=== PATIENT | female | born 1935 | race African-American/Black ===

== ENCOUNTER 2018-04-08 07:30 | Emergency (ER) | payer MEDICARE, MEDICAID ==
[~2018-04-08] VITALS: Ht 157.5 cm; Wt 76.0 kg
[~2018-04-08 07:30] MED LIST: ATEN50TA PO; LEVO50TA8 PO; LOSA50TA20 PO; METF-414 PO; MONT10TA24 PO; OXYB5TAB11 PO; SIMV20TA6 PO
[2018-04-08] MEDS ORDERED: ALBUTEROL (0.083%) 2.5MG/3ML NEB HHN STA (08:21)
[2018-04-08] MEDS ORDERED: IPRATROPIUM BROMIDE (0.02%) 0.5MG/2.5ML NEB HHN STA (08:21)
[2018-04-08 09:00] LABS: BASOPHILS % 0.6 % (0.0-2.0); EOSINOPHILS % 0.6 % (0.0-5.0); HEMATOCRIT. 32.1 % (36.0-48.0); HEMOGLOBIN. 10.9 g/dL (12.0-16.0); LYMPHOCYTES % 11.8 % (20.0-50.0); MEAN CORPUSCULAR HEMOGLOBIN 29.5 pg (28.0-32.0); MEAN CORPUSCULAR VOLUME 86.8 fL (81.0-99.0); MONOCYTES % 8.9 % (2.0-8.0); NEUTROPHILS % 78.1 % (40.0-76.0); RED CELL DISTRIBUTION WIDTH 16.2 % (11.6-14.6)
[2018-04-08 09:41] LABS: CHLORIDE 101 mEq/L (98-107)
[2018-04-08] MEDS ORDERED: ACETAMINOPHEN 325MG TABLET PO ONE (10:15)
[2018-04-08] MEDS ORDERED: GABAPENTIN 100MG CAPSULE PO ONE (10:15)
[2018-04-08 12:00] VITALS: BP 152/72
[2018-07-24] MEDS ORDERED: P50 MT (17:36)
== END 2018-04-08 12:15 | disposition home or self-care (01) ==
LOC: ER 10:58
DX: E11.21 Type 2 diabetes mellitus with diabetic nephropathy (principal); R20.2 Paresthesia of skin; I10 Essential (primary) hypertension; J44.9 Chronic obstructive pulmonary disease, unspecified; Z79.51 Long term (current) use of inhaled steroids; Z79.84 Long term (current) use of oral hypoglycemic drugs; Z79.899 Other long term (current) drug therapy; Z88.2 Allergy status to sulfonamides
CPT/HCPCS: 36415; 71045; 93005; 94644; 99285; J7611

== ENCOUNTER 2018-07-22 06:09 | Inpatient (IN) | payer MEDICARE, MEDICAID ==
[~2018-07-22] VITALS: Ht 157.5 cm; Wt 83.5 kg
[2018-07-22] MEDS ORDERED: IPRATROPIUM BROMIDE (0.02%) 0.5MG/2.5ML NEB HHN STA (07:07)
[2018-07-22] MEDS ORDERED: ALBUTEROL (0.083%) 2.5MG/3ML NEB HHN STA (07:07)
[2018-07-22] MEDS ORDERED: ASPIRIN 81MG TABLET PO ONE (07:15)
[2018-07-22 07:34] LABS: BASOPHILS % 0.8 % (0.0-2.0); EOSINOPHILS % 1.2 % (0.0-5.0); HEMATOCRIT. 30.3 % (36.0-48.0); HEMOGLOBIN. 10.5 g/dL (12.0-16.0); LYMPHOCYTES % 12.2 % (20.0-50.0); MEAN CORPUSCULAR HEMOGLOBIN 30.3 pg (28.0-32.0); MEAN CORPUSCULAR VOLUME 87.4 fL (81.0-99.0); MEAN PLATELET VOLUME 7.3 fl (7.4-10.4); MONOCYTES % 9.5 % (2.0-8.0); NEUTROPHILS % 76.3 % (40.0-76.0); PLATELET 191 x1000/uL (130-400); RED BLOOD CELL COUNT 3.47 mill/uL (4.2-5.4); RED CELL DISTRIBUTION WIDTH 15.8 % (11.6-14.6)
[2018-07-22 07:40] LABS: CHLORIDE 103 mEq/L (98-107)
[2018-07-22] MEDS ORDERED: ALBUTEROL (0.5%) 2.5MG/0.5ML NEB HHN ONE (08:00)
[2018-07-22] MEDS ORDERED: METHYLPREDNISOLONE SOD SUCC 125 MG/2 ML VIAL IV ONE (08:00)
[2018-07-22] MEDS ORDERED: HYDROCODONE/ACETAMINOPHEN 5/325MG TABLET PO PRN (09:30)
[2018-07-22] MEDS ORDERED: ACETAMINOPHEN 650MG SUPP PR PRN (09:30)
[2018-07-22] MEDS ORDERED: DEXTROSE 50% WATER 50ML SYRINGE IV PRN (09:30)
[2018-07-22] MEDS: IPRATROPIUM/ALBUTEROL 0.5-3(2.5)MG/3ML NEB INH SCH (09:30)
[2018-07-22] MEDS: METHYLPREDNISOLONE SOD SUCC 125 MG/2 ML VIAL IV SCH ×4 (09:30→20:54)
[2018-07-22] MEDS ORDERED: IPRATROPIUM/ALBUTEROL 0.5-3(2.5)MG/3ML NEB INH PRN (09:30)
[2018-07-22] MEDS ORDERED: NA PHOS,M-B/NA PHOS,DI-BA ENEMA 118ML PR PRN (09:30)
[2018-07-22] MEDS: ENOXAPARIN 40MG/0.4ML SYR SUBCUT SCH ×2 (09:30→12:23)
[2018-07-22] MEDS ORDERED: MAGNESIUM/ALUMINUM HYDROXIDE/SIMETHICONE 30ML UDC PO PRN (09:30)
[2018-07-22] MEDS ORDERED: ACETAMINOPHEN 650MG/20.3ML UDC GT PRN (09:30)
[2018-07-22] MEDS ORDERED: DOCUSATE SODIUM 100MG CAPSULE PO PRN (09:30)
[2018-07-22] MEDS ORDERED: ONDANSETRON HCL 4MG/2ML INJ IV PRN (09:30)
[2018-07-22] MEDS ORDERED: DIPHENHYDRAMINE 50MG/ML VIAL IV PRN (09:30)
[2018-07-22] MEDS ORDERED: GUAIFENESIN 200MG/10ML SUGAR FREE UDC PO PRN (09:30)
[2018-07-22] MEDS: BLOOD SUGAR DIAGNOSTIC STRIP TEST SCH ×3 (12:21→21:09)
[2018-07-22] MEDS: INSULIN LISPRO 100 UNITS/ML SUBCUT SCH ×3 (12:28→21:00)
[2018-07-22] MEDS: SODIUM CHLORIDE 0.9% INJ 3ML FLUSH IVF SCH ×2 (14:00→23:00)
[2018-07-22 16:16] VITALS: BP 140/66
[2018-07-22 20:00] VITALS: BP 144/66
[2018-07-22] MEDS ORDERED: AMLO5TAB88 MT (20:38)
[2018-07-22] MEDS ORDERED: POTA10CA42 PO (20:38)
[2018-07-22] MEDS ORDERED: ASPI-1159 MT (20:38)
[2018-07-22] MEDS ORDERED: GABA-529 PO (20:38)
[2018-07-22] MEDS ORDERED: CHLO25TA2 PO (20:38)
[2018-07-22] MEDS ORDERED: DOXA4TAB3 PO (20:38)
[2018-07-22] MEDS ORDERED: HYDR-2510 MT (20:38)
[2018-07-22] MEDS ORDERED: PERP4TAB11 PO (20:38)
[2018-07-22] MEDS ORDERED: AMLO-375 PO (20:38)
[2018-07-22] MEDS ORDERED: PRED2.5T4 PO (20:38)
[2018-07-22] MEDS ORDERED: MELO-104 PO (20:38)
[2018-07-22] MEDS ORDERED: HYDR25TA MT (20:38)
[2018-07-22] MEDS: ACETAMINOPHEN 325MG TABLET PO PRN (20:55)
[2018-07-23] VITALS: BP 160/79
[2018-07-23] MEDS: METHYLPREDNISOLONE SOD SUCC 125 MG/2 ML VIAL IV SCH ×4 (02:39→21:01)
[2018-07-23 04:00] VITALS: BP_SYST 116; BP_SYST 166; BP_DIAS 76; BP_DIAS 79
[2018-07-23] MEDS: IPRATROPIUM/ALBUTEROL 0.5-3(2.5)MG/3ML NEB INH SCH ×4 (04:49→20:39)
[2018-07-23] MEDS: CLONIDINE 0.1MG TABLET PO PRN (05:20)
[2018-07-23] MEDS: SODIUM CHLORIDE 0.9% INJ 3ML FLUSH IVF SCH ×2 (05:21→17:32)
[2018-07-23] MEDS: BLOOD SUGAR DIAGNOSTIC STRIP TEST SCH ×4 (06:41→21:04)
[2018-07-23 07:34] LABS: HEMATOCRIT. 30.9 % (36.0-48.0); HEMOGLOBIN. 10.6 g/dL (12.0-16.0); MEAN CORPUSCULAR HEMOGLOBIN 30.1 pg (28.0-32.0); MEAN CORPUSCULAR VOLUME 87.4 fL (81.0-99.0); MEAN PLATELET VOLUME 8.1 fl (7.4-10.4); PLATELET 199 x1000/uL (130-400); RED BLOOD CELL COUNT 3.53 mill/uL (4.2-5.4); RED CELL DISTRIBUTION WIDTH 15.8 % (11.6-14.6)
[2018-07-23 08:00] VITALS: BP 164/71
[2018-07-23 08:21] LABS: CHLORIDE 98 mEq/L (98-107)
[2018-07-23 08:42] LABS: LDL CHOLESTEROL 64 mg/dL (5-100)
[2018-07-23 08:44] LABS: HDL CHOLESTEROL 85 mg/dL (40-59)
[2018-07-23] MEDS: INSULIN LISPRO 100 UNITS/ML SUBCUT SCH ×4 (09:03→21:04)
[2018-07-23 10:05] LABS: BG BASE EXCESS -4.6 mmol/L (-2.0-2.0); BG CARBOXYHEMOGLOBIN 0.3 % (0.5-1.5); BG DEOXYHEMOGLOBIN 3.5 % (0.0-5.0); BG FRACTION INSPIRED OXYGEN 21; BG HCO3 ACT 18.5 mmol/L (22.0-26.0); BG METHEMOGLOBIN 0.1 % (0.0-1.5); BG OXYGEN SATURATION 96.5 % (92.0-98.5); BG OXYHEMOGLOBIN 96.1 % (94.0-97.0); BG PCO2 28.1 mmHg (35.0-45.0); BG PH 7.436 (7.350-7.450); BG PO2 94.4 mmHg (75.0-100.0); BG SAMPLE SITE RIGHT RADIAL; BG TOTAL HEMOGLOBIN 11.1 g/dL (12.0-18.0); BG VENT MODE ROOM AIR
[2018-07-23 12:00] VITALS: BP 148/86
[2018-07-23] MEDS ORDERED: MEDICATION NOT ON FORMULARY EA (Atenolol 50 MG) PO SCH (12:45)
[2018-07-23] MEDS ORDERED: OXYBUTYNIN CHLORIDE PO SCH (12:45)
[2018-07-23] MEDS ORDERED: DOXAZOSIN MESYLATE 4 MG PO SCH (12:45)
[2018-07-23] MEDS ORDERED: MEDICATION NOT ON FORMULARY EA (Amlodipine Besylate 1 TAB) MT SCH (12:45)
[2018-07-23] MEDS ORDERED: MEDICATION NOT ON FORMULARY EA (Losartan Potassium 1 TAB) PO SCH (12:45)
[2018-07-23] MEDS ORDERED: MEDICATION NOT ON FORMULARY EA (Potassium Chloride 10 MEQ) PO SCH (12:45)
[2018-07-23] MEDS ORDERED: MEDICATION NOT ON FORMULARY EA (Metformin Hcl 1 TAB) PO SCH (12:45)
[2018-07-23] MEDS ORDERED: MEDICATION NOT ON FORMULARY EA (Aspirin (Aspirin Low Dose) 1 TAB) MT SCH (12:45)
[2018-07-23 13:11] LABS: PLATELET ESTIMATE NORMAL
[2018-07-23] MEDS: POTASSIUM CHLORIDE 10MEQ TABLET SR PO SCH (13:32)
[2018-07-23] MEDS: HYDROCHLOROTHIAZIDE 25MG TABLET PO SCH (13:32)
[2018-07-23] MEDS: ASPIRIN 81MG TABLET PO SCH (13:32)
[2018-07-23] MEDS: AMLODIPINE 5MG TABLET PO SCH (13:32)
[2018-07-23] MEDS: DOXAZOSIN MESYLATE 4MG TABLET PO SCH ×2 (13:32→17:31)
[2018-07-23 16:00] VITALS: BP 165/74
[2018-07-23] MEDS ORDERED: MONTELUKAST SODIUM 10MG TABLET PO SCH (17:00)
[2018-07-23] MEDS: MELOXICAM 7.5MG TABLET PO SCH (17:31)
[2018-07-23] MEDS: METFORMIN HCL 500MG TABLET PO SCH (17:31)
[2018-07-23] MEDS: OXYBUTYNIN CHLORIDE 5MG TABLET PO SCH (17:34)
[2018-07-23] MEDS ORDERED: MEDICATION NOT ON FORMULARY EA (Gabapentin 100 MG) PO SCH (18:00)
[2018-07-23] MEDS ORDERED: GABAPENTIN 100MG CAPSULE PO SCH (18:00)
[2018-07-23 20:00] VITALS: BP 155/81
[2018-07-23] MEDS ORDERED: MEDICATION NOT ON FORMULARY EA (Simvastatin 1 TAB) PO SCH (21:00)
[2018-07-23] MEDS ORDERED: ATORVASTATIN CALCIUM 10MG TABLET PO SCH (21:00)
[2018-07-23] MEDS: ACETAMINOPHEN 325MG TABLET PO PRN (21:02)
[2018-07-23] MEDS: LOSARTAN POTASSIUM 50 MG TABLET PO SCH (21:03)
[2018-07-23] MEDS: ATENOLOL 50 MG TABLET PO SCH (21:03)
[2018-07-24] VITALS: BP 140/78
[2018-07-24] MEDS: METHYLPREDNISOLONE SOD SUCC 125 MG/2 ML VIAL IV SCH ×2 (01:03→08:02)
[2018-07-24] MEDS: SODIUM CHLORIDE 0.9% INJ 3ML FLUSH IVF SCH ×3 (01:04→12:13)
[2018-07-24] MEDS: IPRATROPIUM/ALBUTEROL 0.5-3(2.5)MG/3ML NEB INH SCH ×3 (01:30→13:58)
[2018-07-24 04:00] VITALS: BP 170/90
[2018-07-24] MEDS: BLOOD SUGAR DIAGNOSTIC STRIP TEST SCH ×2 (05:37→12:12)
[2018-07-24] MEDS: CLONIDINE 0.1MG TABLET PO PRN (06:03)
[2018-07-24] MEDS ORDERED: LEVOTHYROXINE SODIUM 50MCG TABLET PO SCH (07:40)
[2018-07-24 08:00] VITALS: BP 160/70
[2018-07-24] MEDS: MELOXICAM 7.5MG TABLET PO SCH (08:01)
[2018-07-24] MEDS: DOXAZOSIN MESYLATE 4MG TABLET PO SCH (08:01)
[2018-07-24] MEDS: OXYBUTYNIN CHLORIDE 5MG TABLET PO SCH (08:01)
[2018-07-24] MEDS: ASPIRIN 81MG TABLET PO SCH (08:01)
[2018-07-24] MEDS: LOSARTAN POTASSIUM 50 MG TABLET PO SCH (08:01)
[2018-07-24] MEDS: POTASSIUM CHLORIDE 10MEQ TABLET SR PO SCH (08:01)
[2018-07-24] MEDS: METFORMIN HCL 500MG TABLET PO SCH (08:01)
[2018-07-24] MEDS: AMLODIPINE 5MG TABLET PO SCH (08:01)
[2018-07-24] MEDS: ENOXAPARIN 40MG/0.4ML SYR SUBCUT SCH (08:02)
[2018-07-24] MEDS: HYDROCHLOROTHIAZIDE 25MG TABLET PO SCH (08:04)
[2018-07-24] MEDS: INSULIN LISPRO 100 UNITS/ML SUBCUT SCH ×2 (09:05→12:15)
[2018-07-24] MEDS: ATENOLOL 50 MG TABLET PO SCH (09:10)
[2018-07-24 13:06] VITALS: BP 133/60
[2018-07-24] MEDS ORDERED: METHYLPREDNISOLONE SOD SUCC 40 MG/ML VIAL IV SCH (14:00)
[2018-07-24 17:10] VITALS: BP 173/59
[2018-07-24 17:23] LABS: HEMATOCRIT. 30.8 % (36.0-48.0); HEMOGLOBIN. 10.7 g/dL (12.0-16.0); MEAN CORPUSCULAR HEMOGLOBIN 30.2 pg (28.0-32.0); MEAN CORPUSCULAR VOLUME 86.7 fL (81.0-99.0); MEAN PLATELET VOLUME 7.8 fl (7.4-10.4); PLATELET 207 x1000/uL (130-400); RED BLOOD CELL COUNT 3.55 mill/uL (4.2-5.4); RED CELL DISTRIBUTION WIDTH 15.9 % (11.6-14.6)
[2018-07-24 17:32] LABS: CHLORIDE 97 mEq/L (98-107)
[2018-07-24] MEDS ORDERED: P50 MT (17:36)
[2018-07-24 17:45] VITALS: BP 173/59
[2018-07-24 17:59] LABS: PLATELET ESTIMATE NORMAL
== END 2018-07-24 18:55 | disposition home or self-care (01) | DRG 189 ==
LOC: ER 06:55 → 7WST 08:30 → EDBEDREQ 08:33 → ENRESERV 13:01
PROVIDERS: ADMIT Family Medicine; ATTEND Family Medicine
DX: J96.00 Acute respiratory failure, unspecified whether with hypoxia or hypercapnia (principal); J44.1 Chronic obstructive pulmonary disease with (acute) exacerbation; E44.1 Mild protein-calorie malnutrition; E11.9 Type 2 diabetes mellitus without complications; E05.90 Thyrotoxicosis, unspecified without thyrotoxic crisis or storm; I10 Essential (primary) hypertension; E66.9 Obesity, unspecified; E03.9 Hypothyroidism, unspecified; E78.5 Hyperlipidemia, unspecified; J84.10 Pulmonary fibrosis, unspecified; Z87.891 Personal history of nicotine dependence; Z88.2 Allergy status to sulfonamides; Z68.33 Body mass index [BMI] 33.0-33.9, adult
CPT/HCPCS: 36415; 36600; 71045; 71250; 80061; 82375; 82805; 82962; 83880; 84443; 84484; 93005; 94618; 94640; 99285; J1650; J1815; J2920; J2930; J7611; J7620

== ENCOUNTER 2020-05-07 11:53 | Inpatient (IN) | payer MEDICAID, MEDICARE ==
[~2020-05-07] VITALS: Ht 170.2 cm; Wt 90.7 kg
[~2020-05-07 11:53] MED LIST changes: +ALLO100T MT; +AMLO5TAB88 MT; +ASPI-1497 MT; +CILO50TA MT; +DICL50TA7 MT; +DOXA4TAB3 PO; +FURO40TA5 MT; +GABA-529 PO; -LOSA50TA20 PO; +LOSA50TA41 MT; +LOSA50TA41 PO; -METF-414 PO; -MONT10TA24 PO; +MONT10TA32 PO; -OXYB5TAB11 PO; +OXYB5TAB16 PO; +P50 MT; +PARO10TA74 MT; +PERP4TAB11 PO; +POTA-9 MT; +POTA10CA42 PO; +PRAV10TA35 MT; +PRED2.5T4 PO; -SIMV20TA6 PO
[2020-05-07] MEDS ORDERED: ATROPINE SULFATE 1MG/10ML SYR ONE (12:00)
[2020-05-07] MEDS ORDERED: SODIUM BICARBONATE 8.4% 1 MEQ/ML 50ML SYR IV ONE ×2 (12:00→13:30)
[2020-05-07] MEDS ORDERED: EPINEPHRINE 0.1MG/ML (1:10,000) 10ML SYR ONE (12:00)
[2020-05-07] MEDS ORDERED: DEXTROSE 50% WATER 50ML SYRINGE IV ONE ×2 (12:00→13:30)
[2020-05-07] MEDS ORDERED: CALCIUM CHLORIDE 1GM/10ML SYR IV ONE ×2 (12:00→13:30)
[2020-05-07] MEDS ORDERED: NOREPINEPHRINE 8MG/250ML PMX 250 ML IV ONE (12:15)
[2020-05-07] MEDS ORDERED: VANCOMYCIN 1 G PREMIX 200 ML IV ONE (12:30)
[2020-05-07] MEDS ORDERED: FENTANYL CITRATE/PF 50MCG/ML 2ML VIAL IV ONE (12:30)
[2020-05-07] MEDS ORDERED: PROPOFOL 10MG/ML 100ML 100 ML IV ONE (12:30)
[2020-05-07] MEDS ORDERED: PIPERACILLIN/TAZ 3.375G PREMIX 50 ML IV ONE (12:30)
[2020-05-07] MEDS ORDERED: SUCCINYLCHOLINE CHLORIDE 200MG/10ML IV ONE (12:30)
[2020-05-07] MEDS ORDERED: NOREPINEPHRINE 8 MG in DEXTROSE 5% WATER 250 ML IV PRN (12:30)
[2020-05-07] MEDS ORDERED: ETOMIDATE 2MG/ML 10ML VIAL IV ONE (12:30)
[2020-05-07 13:06] LABS: HEMATOCRIT. 24.6 % (36.0-48.0); HEMOGLOBIN. 8.3 g/dL (12.0-16.0); MEAN CORPUSCULAR HEMOGLOBIN 29.3 pg (28.0-32.0); MEAN CORPUSCULAR VOLUME 87.2 fL (81.0-99.0); MEAN PLATELET VOLUME 7.6 fl (7.4-10.4); PLATELET 240 x1000/uL (130-400); RED BLOOD CELL COUNT 2.82 mill/uL (4.2-5.4); RED CELL DISTRIBUTION WIDTH 15.4 % (11.6-14.6)
[2020-05-07 13:15] LABS: CHLORIDE 98 mEq/L (98-107)
[2020-05-07 13:23] LABS: CREATINE KINASE 892 IU/L (26-192)
[2020-05-07 13:24] LABS: D-DIMER 8.86 mg/L FEU (<0.50); PROTHROMBIN TIME 10.4 sec (9.6-11.0)
[2020-05-07] MEDS ORDERED: FUROSEMIDE 100MG/10ML VIAL IV STA (13:25)
[2020-05-07] MEDS ORDERED: SODIUM CHLORIDE 0.9% 1,000 ML IV ONE (13:30)
[2020-05-07] MEDS ORDERED: ALBUTEROL (0.083%) 2.5MG/3ML NEB HHN ONE (13:30)
[2020-05-07] MEDS ORDERED: INSULIN REGULAR (HUMULIN R) 300UNITS/3ML VIAL IV ONE (13:30)
[2020-05-07] MEDS ORDERED: SODIUM POLYSTYRENE SULFONATE 15 G/60 ML BOT PO ONE (13:30)
[2020-05-07] MEDS ORDERED: MIDAZOLAM HCL 100 MG in DEXT 5% WATER 80 ML IV PRN (13:45)
[2020-05-07] MEDS ORDERED: FENTANYL CITRATE/PF 2,500 MCG in SODIUM CHLORIDE 0.9% 200 ML IV PRN ×2 (13:45→14:15)
[2020-05-07 13:47] LABS: NUCLEATED RED BLOOD CELLS 1 /100 WBC; PLATELET ESTIMATE NORMAL
[2020-05-07] MEDS ORDERED: NA PHOS,M-B/NA PHOS,DI-BA ENEMA 118ML PR PRN (14:00)
[2020-05-07] MEDS ORDERED: ACETAMINOPHEN 325MG TABLET PO PRN ×2 (14:00)
[2020-05-07] MEDS ORDERED: NOREPINEPHRINE 8 MG in DEXT 5% WATER 242 ML IV PRN (14:00)
[2020-05-07] MEDS ORDERED: SODIUM POLYSTYRENE SULFONATE 15 G/60 ML BOT PO NR (14:00)
[2020-05-07] MEDS ORDERED: NITROGLYCERIN 0.4MG TABLET SL SL PRN (14:00)
[2020-05-07] MEDS ORDERED: ONDANSETRON HCL 4MG/2ML INJ IV PRN (14:00)
[2020-05-07] MEDS ORDERED: DEXTROSE 50% WATER 50ML SYRINGE IV PRN (14:00)
[2020-05-07] MEDS ORDERED: MAGNESIUM/ALUMINUM HYDROXIDE/SIMETHICONE 30ML UDC PO PRN (14:00)
[2020-05-07] MEDS ORDERED: DEXT 5%/0.9% NACL 1,000 ML IV SCH (14:00)
[2020-05-07] MEDS ORDERED: CLONIDINE 0.1MG TABLET PO PRN (14:00)
[2020-05-07] MEDS ORDERED: GUAIFENESIN 200MG/10ML SUGAR FREE UDC PO PRN (14:00)
[2020-05-07] MEDS ORDERED: ENOXAPARIN 40MG/0.4ML SYR SUBCUT SCH (14:00)
[2020-05-07] MEDS ORDERED: ALBUTEROL 6.7GM HFA INHALER ORI PRN (14:00)
[2020-05-07] MEDS ORDERED: DOCUSATE SODIUM 100MG CAPSULE PO PRN (14:00)
[2020-05-07 14:01] LABS: BG BASE EXCESS -2.4 mmol/L (-2.0-2.0); BG CARBOXYHEMOGLOBIN 0.2 % (0.5-1.5); BG DEOXYHEMOGLOBIN 1.3 % (0.0-5.0); BG HCO3 ACT 24.3 mmol/L (22.0-26.0); BG OXYGEN SATURATION 98.7 % (92.0-98.5); BG OXYHEMOGLOBIN 98.5 % (94.0-97.0); BG PCO2 50.8 mmHg (35.0-45.0); BG PH 7.298 (7.350-7.450); BG PO2 233.2 mmHg (75.0-100.0); BG TOTAL HEMOGLOBIN 10.9 g/dL (12.0-18.0)
[2020-05-07] MEDS ORDERED: VANCOMYCIN 1500MG in DEXTROSE 5% WATER 250ML IV NR (14:30)
[2020-05-07 15:03] LABS: CLARITY URINE CLOUDY (CLEAR); COLOR URINE YELLOW (YELLOW); KETONES URINE NEGATIVE (NEGATIVE); LEUKOCYTE ESTERASE URINE 2+ (NEGATIVE); NITRITE URINE NEGATIVE (NEGATIVE); OCCULT BLOOD URINE 2+ (NEGATIVE); PH URINE 5.5 (4.5-8.0); PROTEIN URINE TRACE (NEGATIVE); SPECIFIC GRAVITY URINE 1.014 (1.005-1.030); UROBILINOGEN URINE 0.2 E.U./dL (0.2-1.0)
[2020-05-07 15:28] LABS: FOLIC ACID (FOLATE) SERUM >20 ng/mL ng/mL (>5.38)
[2020-05-07 15:39] LABS: CHLORIDE 93 mEq/L (98-107)
[2020-05-07 15:40] LABS: VITAMIN B12 SERUM 1414 pg/mL (211-911)
[2020-05-07] MEDS ORDERED: SODIUM BICARBONATE 8.4% 1 MEQ/ML 50ML SYR IV NR (16:14)
[2020-05-07] MEDS: ENOXAPARIN 30MG/0.3ML SYR SUBCUT SCH (16:14)
[2020-05-07] MEDS ORDERED: DOPAMINE 800MG PREMIX (DOUBLE) 250 ML IV NR ×2 (16:15→16:16)
[2020-05-07] MEDS ORDERED: SODIUM BICARBONATE 8.4% MEQ/ML 50ML VIAL IV ONE (16:20)
[2020-05-07 16:36] LABS: BG BASE EXCESS 12.1 mmol/L (-2.0-2.0); BG CARBOXYHEMOGLOBIN 0.2 % (0.5-1.5); BG DEOXYHEMOGLOBIN 7.9 % (0.0-5.0); BG METHEMOGLOBIN 0.3 % (0.0-1.5); BG OXYGEN SATURATION 92.1 % (92.0-98.5); BG OXYHEMOGLOBIN 91.6 % (94.0-97.0); BG PCO2 57.1 mmHg (35.0-45.0); BG PH 7.441 (7.350-7.450); BG PO2 64.2 mmHg (75.0-100.0); BG SAMPLE SITE RIGHT RADIAL; BG TOTAL HEMOGLOBIN 10.4 g/dL (12.0-18.0); BG VENT MODE VENT - AC
[2020-05-07] MEDS: BLOOD SUGAR DIAGNOSTIC STRIP TEST SCH ×3 (17:17→21:59)
[2020-05-07] MEDS: METHYLPREDNISOLONE SOD SUCC 40 MG/ML VIAL IV SCH ×2 (17:32→23:30)
[2020-05-07] MEDS: SODIUM BICARBONATE 150 MEQ in DEXTROSE 5% WATER 1,000 ML IV SCH (17:32)
[2020-05-07] MEDS ORDERED: INSULIN LISPRO 100 UNITS/ML SUBCUT SCH (18:20)
[2020-05-07] MEDS: ALBUTEROL 6.7GM HFA INHALER ORI SCH ×2 (21:00→22:55)
[2020-05-07 21:29] LABS: BG BASE EXCESS -1.9 mmol/L (-2.0-2.0); BG CARBOXYHEMOGLOBIN 0.1 % (0.5-1.5); BG DEOXYHEMOGLOBIN 2.8 % (0.0-5.0); BG FRACTION INSPIRED OXYGEN 100; BG HCO3 ACT 24.1 mmol/L (22.0-26.0); BG METHEMOGLOBIN 0.1 % (0.0-1.5); BG OXYGEN SATURATION 97.2 % (92.0-98.5); BG PCO2 45.7 mmHg (35.0-45.0); BG PO2 101.5 mmHg (75.0-100.0); BG SAMPLE SITE RIGHT RADIAL; BG TOTAL HEMOGLOBIN 13.1 g/dL (12.0-18.0); BG VENT MODE VENT - AC
[2020-05-07] MEDS: INSULIN LISPRO 100 UNITS/ML SUBCUT SCH (21:58)
[2020-05-07] MEDS: PIPERACILLIN/TAZ 3.375G PREMIX 50 ML IV SCH (22:28)
[2020-05-07 23:55] LABS: CREATINE KINASE MB FRACTION 7.7 ng/mL (0.5-3.6)
[2020-05-08] MEDS: SODIUM BICARBONATE 150 MEQ in DEXTROSE 5% WATER 1,000 ML IV SCH (03:30)
[2020-05-08] MEDS: ALBUTEROL 6.7GM HFA INHALER ORI SCH ×2 (04:06→21:50)
[2020-05-08 04:08] LABS: HEMATOCRIT. 35.3 % (36.0-48.0); HEMOGLOBIN. 11.5 g/dL (12.0-16.0); MEAN CORPUSCULAR HEMOGLOBIN 28.8 pg (28.0-32.0); MEAN PLATELET VOLUME 7.5 fl (7.4-10.4); PLATELET 284 x1000/uL (130-400); RED BLOOD CELL COUNT 4.01 mill/uL (4.2-5.4); RED CELL DISTRIBUTION WIDTH 15.5 % (11.6-14.6)
[2020-05-08 04:17] LABS: CHLORIDE 96 mEq/L (98-107)
[2020-05-08 04:23] LABS: PHOSPHORUS 5.5 mg/dL (2.5-4.9)
[2020-05-08] MEDS: BLOOD SUGAR DIAGNOSTIC STRIP TEST SCH ×4 (05:54→18:49)
[2020-05-08] MEDS: METHYLPREDNISOLONE SOD SUCC 40 MG/ML VIAL IV SCH ×3 (05:55→18:49)
[2020-05-08] MEDS: PIPERACILLIN/TAZ 3.375G PREMIX 50 ML IV SCH ×3 (06:09→22:23)
[2020-05-08] MEDS: INSULIN LISPRO 100 UNITS/ML SUBCUT SCH ×4 (06:09→20:34)
[2020-05-08 06:42] LABS: PLATELET ESTIMATE NORMAL
[2020-05-08] MEDS ORDERED: MIDAZOLAM HCL 100 MG in DEXT 5% WATER 80 ML IV PRN (08:00)
[2020-05-08] MEDS: ASPIRIN 325MG EC TABLET PO SCH (08:50)
[2020-05-08] MEDS: PANTOPRAZOLE SODIUM 40 MG/VIAL IV SCH (08:50)
[2020-05-08 10:14] LABS: BG BASE EXCESS 6.5 mmol/L (-2.0-2.0); BG CARBOXYHEMOGLOBIN 0.2 % (0.5-1.5); BG DEOXYHEMOGLOBIN 0.7 % (0.0-5.0); BG FRACTION INSPIRED OXYGEN 100; BG HCO3 ACT 30.4 mmol/L (22.0-26.0); BG METHEMOGLOBIN 0.2 % (0.0-1.5); BG OXYGEN SATURATION 99.3 % (92.0-98.5); BG OXYHEMOGLOBIN 98.9 % (94.0-97.0); BG PCO2 40.7 mmHg (35.0-45.0); BG PH 7.491 (7.350-7.450); BG PO2 252.2 mmHg (75.0-100.0); BG SAMPLE SITE RIGHT RADIAL; BG VENT MODE VENT - AC
[2020-05-08] MEDS: NOREPINEPHRINE 8 MG in DEXT 5% WATER 242 ML IV PRN ×2 (11:45→19:24)
[2020-05-08] MEDS: SODIUM CHLORIDE 0.9% 1,000 ML IV SCH (14:17)
[2020-05-08] MEDS: ENOXAPARIN 30MG/0.3ML SYR SUBCUT SCH (16:37)
[2020-05-09] MEDS: BLOOD SUGAR DIAGNOSTIC STRIP TEST SCH ×4 (00:08→18:38)
[2020-05-09] MEDS: INSULIN LISPRO 100 UNITS/ML SUBCUT SCH ×4 (00:12→19:33)
[2020-05-09] MEDS: SODIUM CHLORIDE 0.9% 1,000 ML IV SCH (02:14)
[2020-05-09] MEDS: METHYLPREDNISOLONE SOD SUCC 40 MG/ML VIAL IV SCH ×5 (05:43→23:57)
[2020-05-09 05:46] LABS: HEMATOCRIT. 31.3 % (36.0-48.0); HEMOGLOBIN. 10.5 g/dL (12.0-16.0); MEAN CORPUSCULAR HEMOGLOBIN 28.6 pg (28.0-32.0); MEAN CORPUSCULAR VOLUME 85.4 fL (81.0-99.0); MEAN PLATELET VOLUME 7.7 fl (7.4-10.4); PLATELET 248 x1000/uL (130-400); RED BLOOD CELL COUNT 3.67 mill/uL (4.2-5.4); RED CELL DISTRIBUTION WIDTH 15.2 % (11.6-14.6)
[2020-05-09 05:51] LABS: CHLORIDE 91 mEq/L (98-107)
[2020-05-09 06:01] LABS: PHOSPHORUS 5.3 mg/dL (2.5-4.9)
[2020-05-09 06:03] LABS: CREATINE KINASE 515 IU/L (26-192)
[2020-05-09 06:06] LABS: CREATINE KINASE MB FRACTION 2.9 ng/mL (0.5-3.6)
[2020-05-09] MEDS: PIPERACILLIN/TAZ 3.375G PREMIX 50 ML IV SCH ×3 (06:34→23:57)
[2020-05-09] MEDS: ALBUTEROL 6.7GM HFA INHALER ORI SCH ×2 (08:06→16:27)
[2020-05-09 09:58] LABS: BG BASE EXCESS 2.8 mmol/L (-2.0-2.0); BG CARBOXYHEMOGLOBIN 0.3 % (0.5-1.5); BG DEOXYHEMOGLOBIN 0.9 % (0.0-5.0); BG FRACTION INSPIRED OXYGEN 80; BG HCO3 ACT 27.2 mmol/L (22.0-26.0); BG METHEMOGLOBIN 0.2 % (0.0-1.5); BG OXYGEN SATURATION 99.1 % (92.0-98.5); BG OXYHEMOGLOBIN 98.6 % (94.0-97.0); BG PCO2 41.5 mmHg (35.0-45.0); BG PH 7.435 (7.350-7.450); BG PO2 199.8 mmHg (75.0-100.0); BG SAMPLE SITE RIGHT RADIAL; BG TOTAL HEMOGLOBIN 10.9 g/dL (12.0-18.0); BG TOTAL RESPIRATORY RATE 14 b/min; BG VENT MODE VENT - AC
[2020-05-09] MEDS ORDERED: VANCOMYCIN 1 G PREMIX 200 ML IV SCH (10:00)
[2020-05-09] MEDS: ASPIRIN 325MG EC TABLET PO SCH (11:10)
[2020-05-09] MEDS: PANTOPRAZOLE SODIUM 40 MG/VIAL IV SCH (11:13)
[2020-05-09 13:05] LABS: PLATELET ESTIMATE NORMAL
[2020-05-09] MEDS: ENOXAPARIN 30MG/0.3ML SYR SUBCUT SCH (16:40)
[2020-05-09] MEDS ORDERED: DOPAMINE 800MG PREMIX (DOUBLE) 250 ML IV PRN (20:30)
[2020-05-10] MEDS: SODIUM CHLORIDE 0.9% 1,000 ML IV SCH ×2 (00:03→14:10)
[2020-05-10] MEDS: BLOOD SUGAR DIAGNOSTIC STRIP TEST SCH ×3 (00:09→18:18)
[2020-05-10] MEDS: INSULIN LISPRO 100 UNITS/ML SUBCUT SCH ×4 (00:12→18:18)
[2020-05-10 04:59] LABS: HEMOGLOBIN. 10.2 g/dL (12.0-16.0); MEAN CORPUSCULAR HEMOGLOBIN 28.3 pg (28.0-32.0); MEAN CORPUSCULAR VOLUME 86.1 fL (81.0-99.0); MEAN PLATELET VOLUME 8.2 fl (7.4-10.4); PLATELET 246 x1000/uL (130-400); RED BLOOD CELL COUNT 3.61 mill/uL (4.2-5.4)
[2020-05-10 05:02] LABS: CHLORIDE 92 mEq/L (98-107)
[2020-05-10 05:11] LABS: PHOSPHORUS 4.8 mg/dL (2.5-4.9)
[2020-05-10 05:14] LABS: CREATINE KINASE 763 IU/L (26-192)
[2020-05-10] MEDS: METHYLPREDNISOLONE SOD SUCC 40 MG/ML VIAL IV SCH ×3 (06:33→22:29)
[2020-05-10] MEDS: ALBUTEROL 6.7GM HFA INHALER ORI SCH (07:59)
[2020-05-10] MEDS: PIPERACILLIN/TAZ 3.375G PREMIX 50 ML IV SCH ×3 (08:03→22:31)
[2020-05-10] MEDS: PANTOPRAZOLE SODIUM 40 MG/VIAL IV SCH (09:07)
[2020-05-10] MEDS: ASPIRIN 325MG EC TABLET PO SCH (09:07)
[2020-05-10] MEDS ORDERED: NOREPINEPHRINE 8 MG in SODIUM CHLORIDE 0.9% 242 ML IV PRN (11:37)
[2020-05-10] MEDS ORDERED: MIDAZOLAM HCL 100 MG in SODIUM CHLORIDE 0.9% 80 ML IV PRN ×2 (11:37→12:00)
[2020-05-10] MEDS ORDERED: SODIUM POLYSTYRENE SULFONATE 15 G/60 ML BOT PO ONE (11:45)
[2020-05-10] MEDS: AMLODIPINE 5MG TABLET PO SCH (12:50)
[2020-05-10 14:51] LABS: PLATELET ESTIMATE NORMAL
[2020-05-10] MEDS: ENOXAPARIN 30MG/0.3ML SYR SUBCUT SCH (15:00)
[2020-05-10 15:03] LABS: BG BASE EXCESS 1.1 mmol/L (-2.0-2.0); BG CARBOXYHEMOGLOBIN 0.3 % (0.5-1.5); BG DEOXYHEMOGLOBIN 2.3 % (0.0-5.0); BG FRACTION INSPIRED OXYGEN 50; BG HCO3 ACT 26.7 mmol/L (22.0-26.0); BG METHEMOGLOBIN 0.2 % (0.0-1.5); BG OXYGEN SATURATION 97.7 % (92.0-98.5); BG OXYHEMOGLOBIN 97.2 % (94.0-97.0); BG PCO2 46.4 mmHg (35.0-45.0); BG PH 7.378 (7.350-7.450); BG PO2 113.2 mmHg (75.0-100.0); BG SAMPLE SITE LEFT BRACHIAL; BG TOTAL RESPIRATORY RATE 14 b/min; BG VENT MODE VENT - AC
[2020-05-10] MEDS ORDERED: DOPAMINE HCL IV PRN (15:30)
[2020-05-10] MEDS ORDERED: SODIUM CHLORIDE 0.9% IV PRN (15:30)
[2020-05-11] MEDS: BLOOD SUGAR DIAGNOSTIC STRIP TEST SCH ×4 (00:12→20:08)
[2020-05-11] MEDS: INSULIN LISPRO 100 UNITS/ML SUBCUT SCH ×4 (00:43→20:11)
[2020-05-11 05:27] LABS: HEMATOCRIT. 34.8 % (36.0-48.0); HEMOGLOBIN. 11.5 g/dL (12.0-16.0); MEAN CORPUSCULAR HEMOGLOBIN 28.6 pg (28.0-32.0); MEAN CORPUSCULAR VOLUME 86.7 fL (81.0-99.0); MEAN PLATELET VOLUME 8.5 fl (7.4-10.4); PLATELET 276 x1000/uL (130-400); RED BLOOD CELL COUNT 4.01 mill/uL (4.2-5.4); RED CELL DISTRIBUTION WIDTH 15.3 % (11.6-14.6)
[2020-05-11] MEDS: PIPERACILLIN/TAZ 3.375G PREMIX 50 ML IV SCH ×3 (05:59→22:00)
[2020-05-11 08:47] LABS: BG BASE EXCESS -2.4 mmol/L (-2.0-2.0); BG CARBOXYHEMOGLOBIN 0.3 % (0.5-1.5); BG DEOXYHEMOGLOBIN 1.4 % (0.0-5.0); BG FRACTION INSPIRED OXYGEN 50; BG HCO3 ACT 23.1 mmol/L (22.0-26.0); BG METHEMOGLOBIN 0.3 % (0.0-1.5); BG OXYGEN SATURATION 98.6 % (92.0-98.5); BG PCO2 42.5 mmHg (35.0-45.0); BG PH 7.353 (7.350-7.450); BG PO2 142.9 mmHg (75.0-100.0); BG SAMPLE SITE RIGHT RADIAL; BG TOTAL HEMOGLOBIN 12.3 g/dL (12.0-18.0); BG VENT MODE VENT - AC
[2020-05-11] MEDS: ASPIRIN 325MG EC TABLET PO SCH (11:15)
[2020-05-11] MEDS: AMLODIPINE 5MG TABLET PO SCH (11:15)
[2020-05-11] MEDS: PANTOPRAZOLE SODIUM 40 MG/VIAL IV SCH (11:15)
[2020-05-11] MEDS: METHYLPREDNISOLONE SOD SUCC 40 MG/ML VIAL IV SCH ×2 (11:16→23:00)
[2020-05-11 11:20] LABS: PLATELET ESTIMATE NORMAL
[2020-05-11] MEDS ORDERED: SODIUM POLYSTYRENE SULFONATE 15 G/60 ML BOT PO SCH (13:00)
[2020-05-11] MEDS: SODIUM CHLORIDE 0.9% 1,000 ML IV SCH (14:00)
[2020-05-11] MEDS: ENOXAPARIN 30MG/0.3ML SYR SUBCUT SCH (15:40)
[2020-05-11] MEDS ORDERED: VANCOMYCIN 1 G PREMIX 200 ML IV SCH (17:00)
[2020-05-12] MEDS: BLOOD SUGAR DIAGNOSTIC STRIP TEST SCH ×4 (00:24→18:15)
[2020-05-12] MEDS: INSULIN LISPRO 100 UNITS/ML SUBCUT SCH ×4 (00:32→18:21)
[2020-05-12 04:39] LABS: HEMATOCRIT. 28.8 % (36.0-48.0); HEMOGLOBIN. 9.6 g/dL (12.0-16.0); MEAN CORPUSCULAR HEMOGLOBIN 28.8 pg (28.0-32.0); MEAN CORPUSCULAR VOLUME 86.6 fL (81.0-99.0); MEAN PLATELET VOLUME 8.4 fl (7.4-10.4); PLATELET 242 x1000/uL (130-400); RED BLOOD CELL COUNT 3.32 mill/uL (4.2-5.4)
[2020-05-12] MEDS: PANTOPRAZOLE SODIUM 40 MG/VIAL IV SCH (08:07)
[2020-05-12] MEDS: ASPIRIN 325MG EC TABLET PO SCH (08:07)
[2020-05-12] MEDS: AMLODIPINE 5MG TABLET PO SCH (09:00)
[2020-05-12 10:33] LABS: NUCLEATED RED BLOOD CELLS 1 /100 WBC; PLATELET ESTIMATE NORMAL
[2020-05-12 10:59] LABS: BG BASE EXCESS 1.2 mmol/L (-2.0-2.0); BG CARBOXYHEMOGLOBIN 0.2 % (0.5-1.5); BG DEOXYHEMOGLOBIN 1.8 % (0.0-5.0); BG FRACTION INSPIRED OXYGEN 50; BG HCO3 ACT 26.3 mmol/L (22.0-26.0); BG OXYGEN SATURATION 98.2 % (92.0-98.5); BG PCO2 43.6 mmHg (35.0-45.0); BG PH 7.398 (7.350-7.450); BG SAMPLE SITE RIGHT RADIAL; BG TOTAL HEMOGLOBIN 10.1 g/dL (12.0-18.0); BG VENT MODE VENT - AC
[2020-05-12] MEDS: METHYLPREDNISOLONE SOD SUCC 40 MG/ML VIAL IV SCH ×2 (12:08→21:52)
[2020-05-12] MEDS: PIPERACILLIN/TAZ 2.25G PREMIX 50 ML IV SCH ×2 (12:26→21:52)
[2020-05-12] MEDS: ENOXAPARIN 30MG/0.3ML SYR SUBCUT SCH (14:50)
[2020-05-12] MEDS: SODIUM CHLORIDE 0.9% 1,000 ML IV SCH (14:50)
[2020-05-12] MEDS: ALBUTEROL 6.7GM HFA INHALER ORI SCH ×2 (15:10→20:30)
[2020-05-13] MEDS: ALBUTEROL 6.7GM HFA INHALER ORI SCH ×4 (00:57→22:25)
[2020-05-13] MEDS: SODIUM CHLORIDE 0.9% 1,000 ML IV SCH (03:15)
[2020-05-13] MEDS: NOREPINEPHRINE 8 MG in SODIUM CHLORIDE 0.9% 242 ML IV PRN (03:20)
[2020-05-13 04:33] LABS: HEMATOCRIT. 28.4 % (36.0-48.0); HEMOGLOBIN. 9.3 g/dL (12.0-16.0); MEAN CORPUSCULAR HEMOGLOBIN 28.6 pg (28.0-32.0); MEAN CORPUSCULAR VOLUME 87.1 fL (81.0-99.0); MEAN PLATELET VOLUME 8.6 fl (7.4-10.4); PLATELET 227 x1000/uL (130-400); RED BLOOD CELL COUNT 3.26 mill/uL (4.2-5.4); RED CELL DISTRIBUTION WIDTH 15.1 % (11.6-14.6)
[2020-05-13 04:43] LABS: CHLORIDE 105 mEq/L (98-107)
[2020-05-13 04:49] LABS: PHOSPHORUS 3.8 mg/dL (2.5-4.9)
[2020-05-13 04:53] LABS: PLATELET ESTIMATE NORMAL
[2020-05-13] MEDS: PIPERACILLIN/TAZ 2.25G PREMIX 50 ML IV SCH ×2 (05:27→13:24)
[2020-05-13] MEDS: BLOOD SUGAR DIAGNOSTIC STRIP TEST SCH ×4 (06:00→18:49)
[2020-05-13] MEDS: INSULIN LISPRO 100 UNITS/ML SUBCUT SCH ×4 (06:15→18:51)
[2020-05-13] MEDS ORDERED: INSULIN GLARGINE UD 100 UNITS/ML SYR SUBCUT SCH (08:00)
[2020-05-13 08:20] LABS: BG CARBOXYHEMOGLOBIN 0.3 % (0.5-1.5); BG DEOXYHEMOGLOBIN 1.6 % (0.0-5.0); BG HCO3 ACT 24.9 mmol/L (22.0-26.0); BG METHEMOGLOBIN 0.2 % (0.0-1.5); BG OXYGEN SATURATION 98.4 % (92.0-98.5); BG OXYHEMOGLOBIN 97.9 % (94.0-97.0); BG PCO2 41.3 mmHg (35.0-45.0); BG PH 7.398 (7.350-7.450); BG PO2 154.8 mmHg (75.0-100.0); BG SAMPLE SITE RH; BG TOTAL HEMOGLOBIN 9.3 g/dL (12.0-18.0); BG VENT MODE VENT - AC
[2020-05-13] MEDS: PANTOPRAZOLE SODIUM 40 MG/VIAL IV SCH (08:37)
[2020-05-13] MEDS: ASPIRIN 325MG EC TABLET PO SCH (08:37)
[2020-05-13] MEDS: AMLODIPINE 5MG TABLET PO SCH (08:37)
[2020-05-13] MEDS: METHYLPREDNISOLONE SOD SUCC 40 MG/ML VIAL IV SCH ×2 (09:13→22:40)
[2020-05-13] MEDS: INSULIN GLARGINE UD 100 UNITS/ML SYR SUBCUT SCH (09:14)
[2020-05-13] MEDS: AMLODIPINE 10MG TABLET PO SCH (09:14)
[2020-05-13 11:01] LABS: PROTHROMBIN TIME 10.2 sec (9.6-11.0)
[2020-05-13] MEDS: ENOXAPARIN 30MG/0.3ML SYR SUBCUT SCH (16:25)
[2020-05-13] MEDS ORDERED: PIPERACILLIN/TAZOBACTAM 2.25 G in DEXTROSE 5% WATER 50 ML IV SCH (19:00)
[2020-05-13] MEDS: MEROPENEM 1,000 MG in SODIUM CHLORIDE 0.9% 100 ML IV SCH (22:40)
[2020-05-14] MEDS: BLOOD SUGAR DIAGNOSTIC STRIP TEST SCH ×4 (01:15→19:07)
[2020-05-14] MEDS: INSULIN LISPRO 100 UNITS/ML SUBCUT SCH ×4 (01:33→19:12)
[2020-05-14] MEDS: ALBUTEROL 6.7GM HFA INHALER ORI SCH ×4 (04:38→21:00)
[2020-05-14 06:51] LABS: CHLORIDE 109 mEq/L (98-107); HEMATOCRIT. 27.6 % (36.0-48.0); HEMOGLOBIN. 9.3 g/dL (12.0-16.0); MEAN CORPUSCULAR VOLUME 86.2 fL (81.0-99.0); MEAN PLATELET VOLUME 8.9 fl (7.4-10.4); PLATELET 227 x1000/uL (130-400); RED CELL DISTRIBUTION WIDTH 15.4 % (11.6-14.6)
[2020-05-14 06:57] LABS: PHOSPHORUS 2.7 mg/dL (2.5-4.9)
[2020-05-14] MEDS: PANTOPRAZOLE SODIUM 40 MG/VIAL IV SCH (08:58)
[2020-05-14] MEDS: ASPIRIN 325MG EC TABLET PO SCH (08:58)
[2020-05-14] MEDS: METHYLPREDNISOLONE SOD SUCC 40 MG/ML VIAL IV SCH ×2 (08:58→23:40)
[2020-05-14] MEDS: AMLODIPINE 10MG TABLET PO SCH (08:58)
[2020-05-14] MEDS: INSULIN GLARGINE UD 100 UNITS/ML SYR SUBCUT SCH (09:25)
[2020-05-14] MEDS: MEROPENEM 1,000 MG in SODIUM CHLORIDE 0.9% 100 ML IV SCH ×2 (13:00→23:40)
[2020-05-14] MEDS ORDERED: POTASSIUM CHLORIDE 20MEQ TABLET SR PO NR (14:30)
[2020-05-14] MEDS: ENOXAPARIN 30MG/0.3ML SYR SUBCUT SCH (15:10)
[2020-05-14 17:19] LABS: NUCLEATED RED BLOOD CELLS 1 /100 WBC; PLATELET ESTIMATE NORMAL
[2020-05-15] MEDS ORDERED: LOSARTAN POTASSIUM 50 MG TABLET GT NR (00:45)
[2020-05-15] MEDS: INSULIN LISPRO 100 UNITS/ML SUBCUT SCH ×4 (00:50→18:23)
[2020-05-15] MEDS: ALBUTEROL 6.7GM HFA INHALER ORI SCH ×2 (03:00→15:00)
[2020-05-15 06:06] LABS: BG BASE EXCESS 1.1 mmol/L (-2.0-2.0); BG CARBOXYHEMOGLOBIN 0.2 % (0.5-1.5); BG DEOXYHEMOGLOBIN 1.6 % (0.0-5.0); BG FRACTION INSPIRED OXYGEN 40; BG HCO3 ACT 25.2 mmol/L (22.0-26.0); BG METHEMOGLOBIN 0.1 % (0.0-1.5); BG OXYGEN SATURATION 98.4 % (92.0-98.5); BG OXYHEMOGLOBIN 98.1 % (94.0-97.0); BG PCO2 37.7 mmHg (35.0-45.0); BG PH 7.443 (7.350-7.450); BG SAMPLE SITE RIGHT RADIAL; BG TOTAL HEMOGLOBIN 8.6 g/dL (12.0-18.0); BG TOTAL RESPIRATORY RATE 22 b/min; BG VENT MODE VENT - AC
[2020-05-15 06:34] LABS: PHOSPHORUS 3.8 mg/dL (2.5-4.9)
[2020-05-15] MEDS: ENOXAPARIN 40MG/0.4ML SYR SUBCUT SCH (08:17)
[2020-05-15] MEDS: PANTOPRAZOLE SODIUM 40 MG/VIAL IV SCH (08:18)
[2020-05-15] MEDS: AMLODIPINE 10MG TABLET PO SCH (09:00)
[2020-05-15] MEDS: ASPIRIN 325MG EC TABLET PO SCH (09:00)
[2020-05-15 09:15] LABS: HEMATOCRIT. 29.1 % (36.0-48.0); HEMOGLOBIN. 9.7 g/dL (12.0-16.0); MEAN CORPUSCULAR HEMOGLOBIN 28.7 pg (28.0-32.0); MEAN PLATELET VOLUME 9.1 fl (7.4-10.4); PLATELET 247 x1000/uL (130-400); RED BLOOD CELL COUNT 3.38 mill/uL (4.2-5.4); RED CELL DISTRIBUTION WIDTH 15.6 % (11.6-14.6)
[2020-05-15] MEDS: MEROPENEM 1,000 MG in SODIUM CHLORIDE 0.9% 100 ML IV SCH ×2 (09:29→23:15)
[2020-05-15] MEDS: METHYLPREDNISOLONE SOD SUCC 40 MG/ML VIAL IV SCH ×2 (09:29→22:59)
[2020-05-15] MEDS: BLOOD SUGAR DIAGNOSTIC STRIP TEST SCH ×3 (09:38→18:22)
[2020-05-15] MEDS: INSULIN GLARGINE UD 100 UNITS/ML SYR SUBCUT SCH (09:41)
[2020-05-15 10:22] LABS: NUCLEATED RED BLOOD CELLS 1 /100 WBC; PLATELET ESTIMATE NORMAL
[2020-05-15 20:51] LABS: BG BASE EXCESS -1.6 mmol/L (-2.0-2.0); BG CARBOXYHEMOGLOBIN 0.3 % (0.5-1.5); BG DEOXYHEMOGLOBIN 1.6 % (0.0-5.0); BG FRACTION INSPIRED OXYGEN 35; BG HCO3 ACT 22.8 mmol/L (22.0-26.0); BG METHEMOGLOBIN 0.2 % (0.0-1.5); BG OXYGEN SATURATION 98.4 % (92.0-98.5); BG OXYHEMOGLOBIN 97.9 % (94.0-97.0); BG PCO2 37.5 mmHg (35.0-45.0); BG PH 7.402 (7.350-7.450); BG SAMPLE SITE RIGHT RADIAL; BG TOTAL HEMOGLOBIN 13.3 g/dL (12.0-18.0); BG VENT MODE VENT - SIMV
[2020-05-16] VITALS (25 sets, daily range): BP systolic 105–146; BP diastolic 62–86
[2020-05-16] MEDS: INSULIN LISPRO 100 UNITS/ML SUBCUT SCH ×4 (00:20→19:08)
[2020-05-16] MEDS: BLOOD SUGAR DIAGNOSTIC STRIP TEST SCH ×4 (00:20→18:00)
[2020-05-16] MEDS ORDERED: LOSARTAN POTASSIUM 50 MG TABLET PO NR (04:15)
[2020-05-16 05:15] LABS: HEMATOCRIT. 29.7 % (36.0-48.0); MEAN CORPUSCULAR HEMOGLOBIN 28.9 pg (28.0-32.0); MEAN CORPUSCULAR VOLUME 85.7 fL (81.0-99.0); MEAN PLATELET VOLUME 9.2 fl (7.4-10.4); PLATELET 273 x1000/uL (130-400); RED BLOOD CELL COUNT 3.46 mill/uL (4.2-5.4); RED CELL DISTRIBUTION WIDTH 15.8 % (11.6-14.6)
[2020-05-16 05:19] LABS: CHLORIDE 110 mEq/L (98-107)
[2020-05-16 08:13] LABS: NUCLEATED RED BLOOD CELLS 1 /100 WBC
[2020-05-16 08:14] LABS: PLATELET ESTIMATE NORMAL
[2020-05-16] MEDS ORDERED: MIDAZOLAM 100MG/100ML PMX 100 ML IV PRN (09:15)
[2020-05-16] MEDS ORDERED: FENTANYL CITRATE/PF 1,000 MCG in SODIUM CHLORIDE 0.9% 80 ML IV PRN (09:15)
[2020-05-16] MEDS ORDERED: MIDAZOLAM HCL 100 MG in SODIUM CHLORIDE 0.9% 80 ML IV PRN (09:30)
[2020-05-16] MEDS ORDERED: ASPIRIN 300MG SUPP PR ONE (09:30)
[2020-05-16] MEDS ORDERED: FENTANYL CITRATE 2,500 MCG in SODIUM CHLORIDE 0.9% 200 ML IV PRN (09:30)
[2020-05-16] MEDS: PANTOPRAZOLE SODIUM 40 MG/VIAL IV SCH (09:45)
[2020-05-16] MEDS: AMLODIPINE 10MG TABLET PO SCH (09:46)
[2020-05-16] MEDS: METHYLPREDNISOLONE SOD SUCC 40 MG/ML VIAL IV SCH ×2 (09:46→22:24)
[2020-05-16] MEDS: ENOXAPARIN 40MG/0.4ML SYR SUBCUT SCH (09:46)
[2020-05-16] MEDS: INSULIN GLARGINE UD 100 UNITS/ML SYR SUBCUT SCH (10:00)
[2020-05-16] MEDS: MEROPENEM 1,000 MG in SODIUM CHLORIDE 0.9% 100 ML IV SCH ×2 (10:00→22:01)
[2020-05-16 10:22] LABS: BG BASE EXCESS 0.2 mmol/L (-2.0-2.0); BG CARBOXYHEMOGLOBIN 0.2 % (0.5-1.5); BG DEOXYHEMOGLOBIN 1.6 % (0.0-5.0); BG FRACTION INSPIRED OXYGEN 35; BG HCO3 ACT 24.9 mmol/L (22.0-26.0); BG METHEMOGLOBIN 0.3 % (0.0-1.5); BG OXYGEN SATURATION 98.4 % (92.0-98.5); BG OXYHEMOGLOBIN 97.9 % (94.0-97.0); BG PCO2 40.6 mmHg (35.0-45.0); BG PH 7.405 (7.350-7.450); BG PO2 151.3 mmHg (75.0-100.0); BG SAMPLE SITE RIGHT RADIAL; BG TOTAL HEMOGLOBIN 9.8 g/dL (12.0-18.0); BG VENT MODE VENT - SIMV
[2020-05-16] MEDS: ALBUTEROL 6.7GM HFA INHALER ORI SCH ×3 (13:12→15:05)
[2020-05-16] MEDS ORDERED: VANCOMYCIN 1 G PREMIX 200 ML IV SCH (15:00)
[2020-05-16] MEDS: NOREPINEPHRINE 8 MG in SODIUM CHLORIDE 0.9% 242 ML IV PRN (15:10)
[2020-05-17] VITALS (95 sets, daily range): BP systolic 99–165; BP diastolic 51–108
[2020-05-17] MEDS: BLOOD SUGAR DIAGNOSTIC STRIP TEST SCH ×4 (00:54→17:41)
[2020-05-17 06:05] LABS: CHLORIDE 114 mEq/L (98-107)
[2020-05-17 06:07] LABS: HEMOGLOBIN. 9.9 g/dL (12.0-16.0); MEAN CORPUSCULAR HEMOGLOBIN 28.7 pg (28.0-32.0); MEAN CORPUSCULAR VOLUME 87.1 fL (81.0-99.0); MEAN PLATELET VOLUME 9.5 fl (7.4-10.4); PLATELET 254 x1000/uL (130-400); RED BLOOD CELL COUNT 3.44 mill/uL (4.2-5.4); RED CELL DISTRIBUTION WIDTH 15.4 % (11.6-14.6)
[2020-05-17] MEDS: INSULIN LISPRO 100 UNITS/ML SUBCUT SCH ×4 (06:22→17:53)
[2020-05-17 08:37] LABS: BG BASE EXCESS 2.1 mmol/L (-2.0-2.0); BG CARBOXYHEMOGLOBIN 0.1 % (0.5-1.5); BG DEOXYHEMOGLOBIN 1.8 % (0.0-5.0); BG HCO3 ACT 25.1 mmol/L (22.0-26.0); BG METHEMOGLOBIN 0.3 % (0.0-1.5); BG OXYGEN SATURATION 98.2 % (92.0-98.5); BG OXYHEMOGLOBIN 97.8 % (94.0-97.0); BG PCO2 33.2 mmHg (35.0-45.0); BG PH 7.497 (7.350-7.450); BG PO2 133.5 mmHg (75.0-100.0); BG SAMPLE SITE RIGHT RADIAL; BG TOTAL HEMOGLOBIN 9.9 g/dL (12.0-18.0); BG VENT MODE VENT - AC
[2020-05-17] MEDS: AMLODIPINE 10MG TABLET PO SCH (09:31)
[2020-05-17] MEDS: ENOXAPARIN 40MG/0.4ML SYR SUBCUT SCH (09:31)
[2020-05-17] MEDS: MEROPENEM 1,000 MG in SODIUM CHLORIDE 0.9% 100 ML IV SCH ×2 (09:31→21:43)
[2020-05-17] MEDS: PANTOPRAZOLE SODIUM 40 MG/VIAL IV SCH (09:31)
[2020-05-17] MEDS: METHYLPREDNISOLONE SOD SUCC 40 MG/ML VIAL IV SCH ×2 (09:32→21:43)
[2020-05-17] MEDS: INSULIN GLARGINE UD 100 UNITS/ML SYR SUBCUT SCH (11:22)
[2020-05-17] MEDS: VANCOMYCIN 1 G PREMIX 200 ML IV SCH (13:37)
[2020-05-17 13:59] LABS: BG BASE EXCESS 1.5 mmol/L (-2.0-2.0); BG CARBOXYHEMOGLOBIN 0.2 % (0.5-1.5); BG HCO3 ACT 25.5 mmol/L (22.0-26.0); BG METHEMOGLOBIN 0.1 % (0.0-1.5); BG OXYHEMOGLOBIN 96.7 % (94.0-97.0); BG PCO2 37.9 mmHg (35.0-45.0); BG PH 7.445 (7.350-7.450); BG PO2 99.2 mmHg (75.0-100.0); BG SAMPLE SITE RIGHT RADIAL; BG TOTAL HEMOGLOBIN 11.5 g/dL (12.0-18.0); BG VENT MODE VENT - SIMV
[2020-05-17 14:49] LABS: NUCLEATED RED BLOOD CELLS 2 /100 WBC; PLATELET ESTIMATE NORMAL
[2020-05-17] MEDS: IPRATROPIUM/ALBUTEROL 0.5-3(2.5)MG/3ML NEB HHN SCH ×2 (16:50→21:00)
[2020-05-18] VITALS (94 sets, daily range): BP systolic 95–172; BP diastolic 44–141
[2020-05-18] MEDS: INSULIN LISPRO 100 UNITS/ML SUBCUT SCH ×5 (01:09→23:17)
[2020-05-18] MEDS: IPRATROPIUM/ALBUTEROL 0.5-3(2.5)MG/3ML NEB HHN SCH ×4 (03:15→20:16)
[2020-05-18 05:54] LABS: HEMATOCRIT. 28.4 % (36.0-48.0); HEMOGLOBIN. 9.4 g/dL (12.0-16.0); MEAN CORPUSCULAR HEMOGLOBIN 28.7 pg (28.0-32.0); MEAN CORPUSCULAR VOLUME 86.7 fL (81.0-99.0); MEAN PLATELET VOLUME 9.7 fl (7.4-10.4); PLATELET 249 x1000/uL (130-400); RED BLOOD CELL COUNT 3.28 mill/uL (4.2-5.4); RED CELL DISTRIBUTION WIDTH 15.6 % (11.6-14.6)
[2020-05-18 05:59] LABS: CHLORIDE 119 mEq/L (98-107)
[2020-05-18] MEDS: BLOOD SUGAR DIAGNOSTIC STRIP TEST SCH ×5 (06:33→23:11)
[2020-05-18] MEDS: AMLODIPINE 10MG TABLET PO SCH (09:00)
[2020-05-18] MEDS: MEROPENEM 1,000 MG in SODIUM CHLORIDE 0.9% 100 ML IV SCH ×2 (09:44→20:36)
[2020-05-18] MEDS: ENOXAPARIN 40MG/0.4ML SYR SUBCUT SCH (09:44)
[2020-05-18] MEDS: METHYLPREDNISOLONE SOD SUCC 40 MG/ML VIAL IV SCH ×2 (09:44→22:03)
[2020-05-18] MEDS: PANTOPRAZOLE SODIUM 40 MG/VIAL IV SCH (09:44)
[2020-05-18] MEDS: INSULIN GLARGINE UD 100 UNITS/ML SYR SUBCUT SCH (09:51)
[2020-05-18] MEDS: MORPHINE SULFATE 2 MG/ML CPJ (NOT FOR IM USE) IV PRN ×2 (09:51→16:57)
[2020-05-18 11:55] LABS: PLATELET ESTIMATE NORMAL
[2020-05-18] MEDS: VANCOMYCIN 1 G PREMIX 200 ML IV SCH (13:14)
[2020-05-18 13:19] LABS: BG BASE EXCESS 4.3 mmol/L (-2.0-2.0); BG CARBOXYHEMOGLOBIN 0.2 % (0.5-1.5); BG DEOXYHEMOGLOBIN 2.1 % (0.0-5.0); BG FRACTION INSPIRED OXYGEN 35; BG HCO3 ACT 27.8 mmol/L (22.0-26.0); BG METHEMOGLOBIN 0.2 % (0.0-1.5); BG OXYGEN SATURATION 97.9 % (92.0-98.5); BG OXYHEMOGLOBIN 97.5 % (94.0-97.0); BG PH 7.493 (7.350-7.450); BG PO2 127.2 mmHg (75.0-100.0); BG SAMPLE SITE LEFT RADIAL; BG TOTAL HEMOGLOBIN 9.3 g/dL (12.0-18.0); BG TOTAL RESPIRATORY RATE 28 b/min; BG VENT MODE VENT - SIMV
[2020-05-18] MEDS: DILTIAZEM HCL 120MG CAPSULE CD 24HR PO SCH (16:55)
[2020-05-18] MEDS: LORAZEPAM 2MG/ML CPJ IV PRN (20:52)
[2020-05-19] VITALS (95 sets, daily range): BP systolic 68–162; BP diastolic 41–127
[2020-05-19] MEDS ORDERED: LORAZEPAM 2MG/ML CPJ IV SCH
[2020-05-19] MEDS: MORPHINE SULFATE 2 MG/ML CPJ (NOT FOR IM USE) IV PRN ×2 (01:24→05:32)
[2020-05-19] MEDS: IPRATROPIUM/ALBUTEROL 0.5-3(2.5)MG/3ML NEB HHN SCH ×4 (02:53→21:31)
[2020-05-19] MEDS: LORAZEPAM 2MG/ML CPJ IV PRN (03:13)
[2020-05-19] MEDS: BLOOD SUGAR DIAGNOSTIC STRIP TEST SCH ×4 (05:27→23:28)
[2020-05-19] MEDS: INSULIN LISPRO 100 UNITS/ML SUBCUT SCH ×3 (05:32→17:32)
[2020-05-19 06:03] LABS: HEMATOCRIT. 24.2 % (36.0-48.0); HEMOGLOBIN. 8.3 g/dL (12.0-16.0); MEAN CORPUSCULAR VOLUME 87.6 fL (81.0-99.0); MEAN PLATELET VOLUME 9.9 fl (7.4-10.4); PLATELET 204 x1000/uL (130-400); RED BLOOD CELL COUNT 2.77 mill/uL (4.2-5.4); RED CELL DISTRIBUTION WIDTH 15.7 % (11.6-14.6)
[2020-05-19 06:48] LABS: CHLORIDE 123 mEq/L (98-107)
[2020-05-19] MEDS: INSULIN GLARGINE UD 100 UNITS/ML SYR SUBCUT SCH (10:33)
[2020-05-19] MEDS: SODIUM CHLORIDE 0.45% 1,000 ML IV SCH (10:33)
[2020-05-19] MEDS: PANTOPRAZOLE SODIUM 40 MG/VIAL IV SCH (10:34)
[2020-05-19] MEDS: METHYLPREDNISOLONE SOD SUCC 40 MG/ML VIAL IV SCH ×2 (10:34→21:28)
[2020-05-19] MEDS: DILTIAZEM HCL 120MG CAPSULE CD 24HR PO SCH (10:34)
[2020-05-19] MEDS: ENOXAPARIN 40MG/0.4ML SYR SUBCUT SCH (10:35)
[2020-05-19 10:48] LABS: NUCLEATED RED BLOOD CELLS 1 /100 WBC; PLATELET ESTIMATE NORMAL
[2020-05-19] MEDS ORDERED: VANCOMYCIN 1250MG in DEXTROSE 5% WATER 250ML IV SCH (12:00)
[2020-05-19] MEDS: LEVOFLOXACIN 250MG TABLET PO SCH (12:01)
[2020-05-19 12:56] LABS: BG BASE EXCESS 5.4 mmol/L (-2.0-2.0); BG CARBOXYHEMOGLOBIN 0.3 % (0.5-1.5); BG DEOXYHEMOGLOBIN 1.1 % (0.0-5.0); BG FRACTION INSPIRED OXYGEN 35; BG HCO3 ACT 29.3 mmol/L (22.0-26.0); BG METHEMOGLOBIN 0.5 % (0.0-1.5); BG OXYGEN SATURATION 98.9 % (92.0-98.5); BG OXYHEMOGLOBIN 98.1 % (94.0-97.0); BG PCO2 39.8 mmHg (35.0-45.0); BG PH 7.485 (7.350-7.450); BG PO2 247.2 mmHg (75.0-100.0); BG SAMPLE SITE RIGHT RADIAL; BG TOTAL HEMOGLOBIN 7.7 g/dL (12.0-18.0); BG VENT MODE VENT - SIMV
[2020-05-19] MEDS: VANCOMYCIN 1,250 MG in SODIUM CHLORIDE 0.9% 250 ML IV SCH (13:51)
[2020-05-19 16:34] LABS: BG BASE EXCESS 3.9 mmol/L (-2.0-2.0); BG CARBOXYHEMOGLOBIN 0.2 % (0.5-1.5); BG FRACTION INSPIRED OXYGEN 35; BG HCO3 ACT 28.2 mmol/L (22.0-26.0); BG METHEMOGLOBIN 0.3 % (0.0-1.5); BG OXYHEMOGLOBIN 97.5 % (94.0-97.0); BG PCO2 41.4 mmHg (35.0-45.0); BG PH 7.451 (7.350-7.450); BG PO2 141.8 mmHg (75.0-100.0); BG SAMPLE SITE RIGHT RADIAL; BG TOTAL HEMOGLOBIN 9.2 g/dL (12.0-18.0); BG VENT MODE VENT - CPAP
[2020-05-19] MEDS: CEFTAZIDIME PENTAHYDRATE IV SCH ×2 (16:44→21:28)
[2020-05-19] MEDS: SODIUM CHLORIDE 0.9% IV SCH ×2 (16:44→21:28)
[2020-05-20] VITALS (66 sets, daily range): BP systolic 102–168; BP diastolic 55–123
[2020-05-20] MEDS: SODIUM CHLORIDE 0.45% 1,000 ML IV SCH
[2020-05-20] MEDS: INSULIN LISPRO 100 UNITS/ML SUBCUT SCH ×5 (00:01→23:42)
[2020-05-20] MEDS: MORPHINE SULFATE 2 MG/ML CPJ (NOT FOR IM USE) IV PRN ×3 (01:17→15:04)
[2020-05-20] MEDS: LORAZEPAM 2MG/ML CPJ IV PRN ×2 (02:29→11:40)
[2020-05-20] MEDS: IPRATROPIUM/ALBUTEROL 0.5-3(2.5)MG/3ML NEB HHN SCH ×4 (03:28→20:38)
[2020-05-20] MEDS: BLOOD SUGAR DIAGNOSTIC STRIP TEST SCH ×4 (05:32→23:42)
[2020-05-20 05:37] LABS: HEMATOCRIT. 24.9 % (36.0-48.0); MEAN CORPUSCULAR HEMOGLOBIN 28.6 pg (28.0-32.0); MEAN CORPUSCULAR VOLUME 88.9 fL (81.0-99.0); MEAN PLATELET VOLUME 10.2 fl (7.4-10.4); PLATELET 181 x1000/uL (130-400); RED CELL DISTRIBUTION WIDTH 16.1 % (11.6-14.6)
[2020-05-20 05:44] LABS: CHLORIDE 126 mEq/L (98-107)
[2020-05-20] MEDS: CEFTAZIDIME PENTAHYDRATE IV SCH ×3 (05:47→21:09)
[2020-05-20] MEDS: SODIUM CHLORIDE 0.9% IV SCH ×3 (05:47→21:09)
[2020-05-20 09:09] LABS: BG BASE EXCESS 4.7 mmol/L (-2.0-2.0); BG CARBOXYHEMOGLOBIN 0.2 % (0.5-1.5); BG DEOXYHEMOGLOBIN 1.6 % (0.0-5.0); BG FRACTION INSPIRED OXYGEN 35; BG HCO3 ACT 28.4 mmol/L (22.0-26.0); BG METHEMOGLOBIN 0.4 % (0.0-1.5); BG OXYGEN SATURATION 98.4 % (92.0-98.5); BG OXYHEMOGLOBIN 97.8 % (94.0-97.0); BG PCO2 38.1 mmHg (35.0-45.0); BG PO2 143.8 mmHg (75.0-100.0); BG SAMPLE SITE RIGHT RADIAL; BG TOTAL HEMOGLOBIN 8.1 g/dL (12.0-18.0); BG VENT MODE VENT - SIMV
[2020-05-20] MEDS: INSULIN GLARGINE UD 100 UNITS/ML SYR SUBCUT SCH (09:39)
[2020-05-20] MEDS: METHYLPREDNISOLONE SOD SUCC 40 MG/ML VIAL IV SCH ×2 (09:39→21:10)
[2020-05-20] MEDS: PANTOPRAZOLE SODIUM 40 MG/VIAL IV SCH (09:39)
[2020-05-20] MEDS: ENOXAPARIN 40MG/0.4ML SYR SUBCUT SCH (09:40)
[2020-05-20] MEDS: DILTIAZEM HCL 120MG CAPSULE CD 24HR PO SCH (09:40)
[2020-05-20 10:22] LABS: BG BASE EXCESS 6.6 mmol/L (-2.0-2.0); BG CARBOXYHEMOGLOBIN 0.2 % (0.5-1.5); BG HCO3 ACT 31.4 mmol/L (22.0-26.0); BG METHEMOGLOBIN 0.8 % (0.0-1.5); BG OXYGEN SATURATION 82.8 % (92.0-98.5); BG PH 7.443 (7.350-7.450); BG PO2 49.4 mmHg (75.0-100.0); BG SAMPLE SITE RIGHT RADIAL; BG TOTAL HEMOGLOBIN 8.2 g/dL (12.0-18.0); BG VENT MODE VENT - CPAP
[2020-05-20] MEDS ORDERED: DEXTROSE 5% WATER 1,000 ML IV SCH (10:45)
[2020-05-20] MEDS: LEVOFLOXACIN 250MG TABLET PO SCH (11:40)
[2020-05-20] MEDS: VANCOMYCIN 1,250 MG in SODIUM CHLORIDE 0.9% 250 ML IV SCH (14:58)
[2020-05-20 15:47] LABS: PLATELET ESTIMATE NORMAL
[2020-05-20 17:21] LABS: BASOPHILS % 0.3 % (0.0-2.0); HEMATOCRIT. 22.9 % (36.0-48.0); HEMOGLOBIN. 7.5 g/dL (12.0-16.0); LYMPHOCYTES % 2.3 % (20.0-50.0); MEAN CORPUSCULAR HEMOGLOBIN 28.8 pg (28.0-32.0); MEAN CORPUSCULAR VOLUME 88.1 fL (81.0-99.0); MEAN PLATELET VOLUME 10.3 fl (7.4-10.4); MONOCYTES % 3.2 % (2.0-8.0); NEUTROPHILS % 94.2 % (40.0-76.0); PLATELET 156 x1000/uL (130-400); RED CELL DISTRIBUTION WIDTH 16.1 % (11.6-14.6)
[2020-05-20 17:28] LABS: CHLORIDE 127 mEq/L (98-107)
[2020-05-20] MEDS ORDERED: DEXT 5% WATER 500 ML IV ONE (19:30)
[2020-05-21] VITALS (34 sets, daily range): BP systolic 97–156; BP diastolic 53–97
[2020-05-21] MEDS: IPRATROPIUM/ALBUTEROL 0.5-3(2.5)MG/3ML NEB HHN SCH ×3 (00:47→15:05)
[2020-05-21] MEDS: MORPHINE SULFATE 2 MG/ML CPJ (NOT FOR IM USE) IV PRN ×3 (03:25→23:55)
[2020-05-21] MEDS: SODIUM CHLORIDE 0.45% 1000ML IV SCH ×2 (05:31→17:58)
[2020-05-21] MEDS: CEFTAZIDIME PENTAHYDRATE IV SCH ×3 (05:31→20:55)
[2020-05-21] MEDS: SODIUM CHLORIDE 0.9% IV SCH ×3 (05:31→20:55)
[2020-05-21] MEDS: BLOOD SUGAR DIAGNOSTIC STRIP TEST SCH ×4 (05:32→23:09)
[2020-05-21] MEDS: INSULIN LISPRO 100 UNITS/ML SUBCUT SCH ×4 (05:32→23:17)
[2020-05-21 05:39] LABS: HEMATOCRIT. 23.8 % (36.0-48.0); HEMOGLOBIN. 7.6 g/dL (12.0-16.0); MEAN CORPUSCULAR HEMOGLOBIN 28.9 pg (28.0-32.0); MEAN CORPUSCULAR VOLUME 90.5 fL (81.0-99.0); MEAN PLATELET VOLUME 10.6 fl (7.4-10.4); PLATELET 150 x1000/uL (130-400); RED BLOOD CELL COUNT 2.63 mill/uL (4.2-5.4); RED CELL DISTRIBUTION WIDTH 15.8 % (11.6-14.6)
[2020-05-21 05:47] LABS: CHLORIDE 123 mEq/L (98-107)
[2020-05-21 06:01] LABS: TOTAL IRON BINDING CAPACITY 208 ug/dL (250-450)
[2020-05-21] MEDS: PANTOPRAZOLE SODIUM 40 MG/VIAL IV SCH (08:54)
[2020-05-21 10:29] LABS: PLATELET ESTIMATE NORMAL
[2020-05-21] MEDS: METHYLPREDNISOLONE SOD SUCC 40 MG/ML VIAL IV SCH ×2 (11:20→20:55)
[2020-05-21] MEDS: LEVOFLOXACIN 250MG TABLET PO SCH (11:20)
[2020-05-21] MEDS: INSULIN GLARGINE UD 100 UNITS/ML SYR SUBCUT SCH (11:21)
[2020-05-21] MEDS ORDERED: FUROSEMIDE 40MG/4ML VIAL IVP NR (12:15)
[2020-05-21] MEDS: DILTIAZEM HCL 60MG TABLET NG SCH ×2 (12:38→19:59)
[2020-05-21] MEDS ORDERED: ALBUMIN HUMAN 25GM/100ML (25%) IV NR ×2 (14:00→22:30)
[2020-05-21] MEDS: VANCOMYCIN 1,250 MG in SODIUM CHLORIDE 0.9% 250 ML IV SCH (15:10)
[2020-05-21 16:49] LABS: CHLORIDE 121 mEq/L (98-107)
[2020-05-21] MEDS: ENOXAPARIN 40MG/0.4ML SYR SUBCUT SCH (17:59)
[2020-05-22] VITALS (33 sets, daily range): BP systolic 136–178; BP diastolic 53–106
[2020-05-22] MEDS ORDERED: FUROSEMIDE 40MG/4ML VIAL IVP NR (01:00)
[2020-05-22] MEDS: SODIUM CHLORIDE 0.45% 1000ML IV SCH ×3 (01:08→20:44)
[2020-05-22] MEDS: IPRATROPIUM/ALBUTEROL 0.5-3(2.5)MG/3ML NEB HHN SCH ×4 (03:23→21:00)
[2020-05-22] MEDS: BLOOD SUGAR DIAGNOSTIC STRIP TEST SCH ×4 (05:03→23:13)
[2020-05-22] MEDS: CEFTAZIDIME PENTAHYDRATE IV SCH ×3 (05:08→21:25)
[2020-05-22] MEDS: SODIUM CHLORIDE 0.9% IV SCH ×3 (05:08→21:25)
[2020-05-22] MEDS: MORPHINE SULFATE 2 MG/ML CPJ (NOT FOR IM USE) IV PRN ×3 (05:09→17:40)
[2020-05-22] MEDS: INSULIN LISPRO 100 UNITS/ML SUBCUT SCH ×4 (05:10→23:21)
[2020-05-22 05:54] LABS: MEAN CORPUSCULAR HEMOGLOBIN 29.1 pg (28.0-32.0); MEAN CORPUSCULAR VOLUME 88.2 fL (81.0-99.0); MEAN PLATELET VOLUME 10.7 fl (7.4-10.4); PLATELET 130 x1000/uL (130-400); RED BLOOD CELL COUNT 2.19 mill/uL (4.2-5.4); RED CELL DISTRIBUTION WIDTH 15.9 % (11.6-14.6)
[2020-05-22 05:56] LABS: CHLORIDE 118 mEq/L (98-107)
[2020-05-22 06:43] LABS: HEMOGLOBIN. 6.4 g/dL (12.0-16.0)
[2020-05-22 06:44] LABS: HEMATOCRIT. 19.3 % (36.0-48.0)
[2020-05-22 08:02] LABS: NUCLEATED RED BLOOD CELLS 1 /100 WBC; PLATELET ESTIMATE NORMAL
[2020-05-22] MEDS: ENOXAPARIN 40MG/0.4ML SYR SUBCUT SCH (08:14)
[2020-05-22] MEDS ORDERED: LIDOCAINE HCL 1% 20ML VIAL (Pyxis) INJ ONE (08:17)
[2020-05-22] MEDS ORDERED: DILTIAZEM HCL 60MG TABLET NG SCH (09:00)
[2020-05-22] MEDS ORDERED: CARVEDILOL 3.125 MG TABLET PO SCH (09:00)
[2020-05-22] MEDS: PANTOPRAZOLE SODIUM 40 MG/VIAL IV SCH (09:17)
[2020-05-22] MEDS: METHYLPREDNISOLONE SOD SUCC 40 MG/ML VIAL IV SCH ×2 (09:17→21:25)
[2020-05-22 10:27] LABS: BG BASE EXCESS 3.2 mmol/L (-2.0-2.0); BG CARBOXYHEMOGLOBIN 1.7 % (0.5-1.5); BG DEOXYHEMOGLOBIN 1.1 % (0.0-5.0); BG FRACTION INSPIRED OXYGEN 45; BG HCO3 ACT 26.6 mmol/L (22.0-26.0); BG METHEMOGLOBIN 0.7 % (0.0-1.5); BG OXYGEN SATURATION 98.9 % (92.0-98.5); BG OXYHEMOGLOBIN 96.5 % (94.0-97.0); BG PCO2 34.1 mmHg (35.0-45.0); BG PO2 188.2 mmHg (75.0-100.0); BG SAMPLE SITE RIGHT RADIAL; BG TOTAL HEMOGLOBIN 5.3 g/dL (12.0-18.0); BG VENT MODE VENT - AC
[2020-05-22] MEDS: LEVOFLOXACIN 250MG TABLET PO SCH (13:36)
[2020-05-22] MEDS: INSULIN GLARGINE UD 100 UNITS/ML SYR SUBCUT SCH (14:11)
[2020-05-22] MEDS: HYDRALAZINE 20MG/ML VIAL IV PRN ×2 (17:38→23:21)
[2020-05-22] MEDS: CARVEDILOL 6.25 MG TABLET PO SCH (20:43)
[2020-05-22] MEDS: LORAZEPAM 2MG/ML CPJ IV PRN (20:43)
[2020-05-22] MEDS ORDERED: ALBUMIN HUMAN 25GM/100ML (25%) IV NR (23:30)
[2020-05-22 23:43] LABS: HEMATOCRIT 31.7 % (36.0-48.0); HEMOGLOBIN 10.6 g/dL (12.0-16.0)
[2020-05-23] VITALS (37 sets, daily range): BP systolic 49–170; BP diastolic 26–91
[2020-05-23] MEDS: LOSARTAN POTASSIUM 50 MG TABLET PO SCH ×2 (00:07→21:00)
[2020-05-23] MEDS ORDERED: FUROSEMIDE 40MG/4ML VIAL IVP NR ×2 (01:00→20:45)
[2020-05-23 01:08] LABS: HEMATOCRIT. 31.1 % (36.0-48.0); HEMOGLOBIN. 10.6 g/dL (12.0-16.0); MEAN CORPUSCULAR VOLUME 87.9 fL (81.0-99.0); PLATELET 103 x1000/uL (130-400); RED BLOOD CELL COUNT 3.54 mill/uL (4.2-5.4)
[2020-05-23 01:14] LABS: CHLORIDE 120 mEq/L (98-107)
[2020-05-23] MEDS: MORPHINE SULFATE 2 MG/ML CPJ (NOT FOR IM USE) IV PRN (01:19)
[2020-05-23 03:03] LABS: NUCLEATED RED BLOOD CELLS 1 /100 WBC
[2020-05-23 03:04] LABS: PLATELET ESTIMATE DECREASED
[2020-05-23] MEDS: BLOOD SUGAR DIAGNOSTIC STRIP TEST SCH ×4 (05:23→23:59)
[2020-05-23] MEDS: SODIUM CHLORIDE 0.9% IV SCH ×3 (05:28→22:15)
[2020-05-23] MEDS: CEFTAZIDIME PENTAHYDRATE IV SCH ×3 (05:28→22:15)
[2020-05-23] MEDS: LORAZEPAM 2MG/ML CPJ IV PRN (05:29)
[2020-05-23] MEDS: DILTIAZEM HCL 90MG TABLET PO SCH ×3 (05:29→22:16)
[2020-05-23] MEDS: INSULIN LISPRO 100 UNITS/ML SUBCUT SCH ×3 (05:30→18:01)
[2020-05-23 05:33] LABS: CHLORIDE 119 mEq/L (98-107)
[2020-05-23 05:38] LABS: HEMATOCRIT. 32.5 % (36.0-48.0); HEMOGLOBIN. 10.9 g/dL (12.0-16.0); MEAN CORPUSCULAR HEMOGLOBIN 29.4 pg (28.0-32.0); MEAN CORPUSCULAR VOLUME 87.6 fL (81.0-99.0); MEAN PLATELET VOLUME 10.6 fl (7.4-10.4); PLATELET 105 x1000/uL (130-400); RED BLOOD CELL COUNT 3.71 mill/uL (4.2-5.4); RED CELL DISTRIBUTION WIDTH 15.2 % (11.6-14.6)
[2020-05-23] MEDS: SODIUM CHLORIDE 0.45% 1000ML IV SCH ×2 (08:00→15:30)
[2020-05-23] MEDS: IPRATROPIUM/ALBUTEROL 0.5-3(2.5)MG/3ML NEB HHN SCH ×3 (08:20→20:21)
[2020-05-23 08:26] LABS: BG BASE EXCESS -3.2 mmol/L (-2.0-2.0); BG CARBOXYHEMOGLOBIN 0.3 % (0.5-1.5); BG METHEMOGLOBIN 0.1 % (0.0-1.5); BG OXYHEMOGLOBIN 91.6 % (94.0-97.0); BG PCO2 30.1 mmHg (35.0-45.0); BG PO2 63.1 mmHg (75.0-100.0); BG SAMPLE SITE RIGHT RADIAL; BG TOTAL HEMOGLOBIN 11.4 g/dL (12.0-18.0); BG VENT MODE VENT - AC
[2020-05-23] MEDS: CARVEDILOL 6.25 MG TABLET PO SCH ×2 (09:44→21:00)
[2020-05-23] MEDS: PANTOPRAZOLE SODIUM 40 MG/VIAL IV SCH (09:44)
[2020-05-23] MEDS: METHYLPREDNISOLONE SOD SUCC 40 MG/ML VIAL IV SCH ×2 (09:45→22:15)
[2020-05-23] MEDS: FUROSEMIDE 40MG/4ML VIAL IVP SCH (09:47)
[2020-05-23] MEDS: INSULIN GLARGINE UD 100 UNITS/ML SYR SUBCUT SCH (09:47)
[2020-05-23 11:39] LABS: BG BASE EXCESS 0.7 mmol/L (-2.0-2.0); BG CARBOXYHEMOGLOBIN 0.1 % (0.5-1.5); BG DEOXYHEMOGLOBIN 2.8 % (0.0-5.0); BG HCO3 ACT 25.3 mmol/L (22.0-26.0); BG METHEMOGLOBIN 0.4 % (0.0-1.5); BG OXYGEN SATURATION 97.2 % (92.0-98.5); BG OXYHEMOGLOBIN 96.7 % (94.0-97.0); BG PCO2 40.2 mmHg (35.0-45.0); BG PH 7.416 (7.350-7.450); BG PO2 114.2 mmHg (75.0-100.0); BG SAMPLE SITE RIGHT RADIAL; BG TOTAL HEMOGLOBIN 10.8 g/dL (12.0-18.0); BG VENT MODE VENT - SIMV
[2020-05-23] MEDS: LEVOFLOXACIN 250MG TABLET PO SCH (12:00)
[2020-05-23] MEDS: FLUCONAZOLE 100MG TABLET PO SCH (12:58)
[2020-05-23] MEDS ORDERED: ALBUMIN HUMAN 25GM/100ML (25%) IV NR (20:45)
[2020-05-24] VITALS (35 sets, daily range): BP systolic 121–168; BP diastolic 54–119
[2020-05-24] MEDS: INSULIN LISPRO 100 UNITS/ML SUBCUT SCH ×5 (00:04→23:43)
[2020-05-24 00:36] LABS: PLATELET ESTIMATE DECREASED
[2020-05-24] MEDS: IPRATROPIUM/ALBUTEROL 0.5-3(2.5)MG/3ML NEB HHN SCH ×4 (02:43→22:16)
[2020-05-24] MEDS: HYDRALAZINE 20MG/ML VIAL IV PRN ×2 (04:43→23:43)
[2020-05-24] MEDS: DILTIAZEM HCL 90MG TABLET PO SCH ×3 (05:45→22:09)
[2020-05-24] MEDS: CEFTAZIDIME PENTAHYDRATE IV SCH ×3 (05:45→22:09)
[2020-05-24] MEDS: SODIUM CHLORIDE 0.9% IV SCH ×3 (05:45→22:09)
[2020-05-24] MEDS: BLOOD SUGAR DIAGNOSTIC STRIP TEST SCH ×4 (05:48→23:36)
[2020-05-24 05:49] LABS: HEMATOCRIT. 28.5 % (36.0-48.0); HEMOGLOBIN. 9.6 g/dL (12.0-16.0); MEAN CORPUSCULAR HEMOGLOBIN 29.6 pg (28.0-32.0); MEAN CORPUSCULAR VOLUME 87.6 fL (81.0-99.0); MEAN PLATELET VOLUME 10.9 fl (7.4-10.4); PLATELET 93 x1000/uL (130-400); RED BLOOD CELL COUNT 3.25 mill/uL (4.2-5.4); RED CELL DISTRIBUTION WIDTH 15.2 % (11.6-14.6)
[2020-05-24 05:51] LABS: CHLORIDE 114 mEq/L (98-107)
[2020-05-24] MEDS: PANTOPRAZOLE SODIUM 40 MG/VIAL IV SCH (09:15)
[2020-05-24] MEDS: FLUCONAZOLE 100MG TABLET PO SCH (09:15)
[2020-05-24] MEDS: CARVEDILOL 6.25 MG TABLET PO SCH (09:15)
[2020-05-24] MEDS: FUROSEMIDE 40MG/4ML VIAL IVP SCH (09:15)
[2020-05-24] MEDS: SODIUM CHLORIDE 0.45% 1000ML IV SCH ×2 (09:17→22:13)
[2020-05-24] MEDS ORDERED: INSULIN GLARGINE UD 100 UNITS/ML SYR SUBCUT SCH (10:00)
[2020-05-24] MEDS: LEVOFLOXACIN 250MG TABLET PO SCH (11:00)
[2020-05-24] MEDS: METHYLPREDNISOLONE SOD SUCC 40 MG/ML VIAL IV SCH ×2 (11:00→22:09)
[2020-05-24 12:32] LABS: BG BASE EXCESS 2.4 mmol/L (-2.0-2.0); BG CARBOXYHEMOGLOBIN 0.1 % (0.5-1.5); BG DEOXYHEMOGLOBIN 1.7 % (0.0-5.0); BG FRACTION INSPIRED OXYGEN 40; BG HCO3 ACT 26.1 mmol/L (22.0-26.0); BG METHEMOGLOBIN 0.3 % (0.0-1.5); BG OXYGEN SATURATION 98.3 % (92.0-98.5); BG OXYHEMOGLOBIN 97.9 % (94.0-97.0); BG PCO2 36.9 mmHg (35.0-45.0); BG PH 7.467 (7.350-7.450); BG PO2 165.3 mmHg (75.0-100.0); BG SAMPLE SITE RIGHT RADIAL; BG TOTAL HEMOGLOBIN 10.3 g/dL (12.0-18.0); BG VENT MODE VENT - SIMV
[2020-05-24 17:27] LABS: PLATELET ESTIMATE DECREASED
[2020-05-24] MEDS: LOSARTAN POTASSIUM 50 MG TABLET PO SCH (22:09)
[2020-05-24] MEDS: CARVEDILOL 3.125 MG TABLET PO SCH (22:10)
[2020-05-24] MEDS: INSULIN GLARGINE UD 100 UNITS/ML SYR SUBCUT SCH (22:13)
[2020-05-24] MEDS: MORPHINE SULFATE 2 MG/ML CPJ (NOT FOR IM USE) IV PRN (23:00)
[2020-05-25] VITALS (45 sets, daily range): BP systolic 125–191; BP diastolic 64–101
[2020-05-25] MEDS: IPRATROPIUM/ALBUTEROL 0.5-3(2.5)MG/3ML NEB HHN SCH ×4 (03:25→20:56)
[2020-05-25 05:15] LABS: HEMATOCRIT. 33.3 % (36.0-48.0); HEMOGLOBIN. 11.2 g/dL (12.0-16.0); MEAN CORPUSCULAR HEMOGLOBIN 29.7 pg (28.0-32.0); MEAN CORPUSCULAR VOLUME 88.4 fL (81.0-99.0); MEAN PLATELET VOLUME 11.1 fl (7.4-10.4); PLATELET 108 x1000/uL (130-400); RED BLOOD CELL COUNT 3.76 mill/uL (4.2-5.4); RED CELL DISTRIBUTION WIDTH 15.6 % (11.6-14.6)
[2020-05-25 05:17] LABS: CHLORIDE 114 mEq/L (98-107)
[2020-05-25] MEDS: BLOOD SUGAR DIAGNOSTIC STRIP TEST SCH ×4 (05:39→23:01)
[2020-05-25] MEDS: DILTIAZEM HCL 90MG TABLET PO SCH (05:46)
[2020-05-25] MEDS: METHYLPREDNISOLONE SOD SUCC 40 MG/ML VIAL IV SCH ×3 (05:46→21:19)
[2020-05-25] MEDS: INSULIN LISPRO 100 UNITS/ML SUBCUT SCH ×4 (05:47→23:04)
[2020-05-25] MEDS: SODIUM CHLORIDE 0.45% 1000ML IV SCH ×2 (06:32→16:02)
[2020-05-25] MEDS ORDERED: HYDRALAZINE HCL 50MG TABLET NG SCH (09:00)
[2020-05-25] MEDS: FUROSEMIDE 40MG/4ML VIAL IVP SCH (09:10)
[2020-05-25] MEDS: PANTOPRAZOLE SODIUM 40 MG/VIAL IV SCH (09:10)
[2020-05-25] MEDS: FLUCONAZOLE 100MG TABLET PO SCH (09:10)
[2020-05-25] MEDS: CARVEDILOL 3.125 MG TABLET PO SCH ×2 (09:12→21:20)
[2020-05-25] MEDS: INSULIN GLARGINE UD 100 UNITS/ML SYR SUBCUT SCH ×2 (09:13→23:04)
[2020-05-25] MEDS ORDERED: MORPHINE SULFATE 2 MG/ML CPJ (NOT FOR IM USE) IV PRN (09:30)
[2020-05-25 11:06] LABS: BG BASE EXCESS -1.9 mmol/L (-2.0-2.0); BG CARBOXYHEMOGLOBIN 0.2 % (0.5-1.5); BG DEOXYHEMOGLOBIN 6.3 % (0.0-5.0); BG FRACTION INSPIRED OXYGEN 35; BG HCO3 ACT 20.7 mmol/L (22.0-26.0); BG METHEMOGLOBIN 0.3 % (0.0-1.5); BG OXYGEN SATURATION 93.7 % (92.0-98.5); BG OXYHEMOGLOBIN 93.2 % (94.0-97.0); BG PCO2 28.6 mmHg (35.0-45.0); BG PH 7.477 (7.350-7.450); BG PO2 67.3 mmHg (75.0-100.0); BG SAMPLE SITE RIGHT RADIAL; BG TOTAL HEMOGLOBIN 11.6 g/dL (12.0-18.0); BG TOTAL RESPIRATORY RATE 11 b/min; BG VENT MODE VENT - AC
[2020-05-25] MEDS: HYDRALAZINE HCL 25MG TABLET NG SCH ×2 (13:23→21:20)
[2020-05-25 13:57] LABS: PLATELET ESTIMATE SLIGHTLY DECREASED
[2020-05-25] MEDS: CEFTAZIDIME PENTAHYDRATE 1 G in DEXTROSE 5% WATER 50 ML IV SCH ×2 (16:02→23:03)
[2020-05-25] MEDS: LEVOFLOXACIN 250MG TABLET PO SCH (16:03)
[2020-05-25 16:05] LABS: BG BASE EXCESS -2.1 mmol/L (-2.0-2.0); BG CARBOXYHEMOGLOBIN 0.3 % (0.5-1.5); BG DEOXYHEMOGLOBIN 7.7 % (0.0-5.0); BG FRACTION INSPIRED OXYGEN 40; BG HCO3 ACT 21.2 mmol/L (22.0-26.0); BG METHEMOGLOBIN 0.2 % (0.0-1.5); BG OXYGEN SATURATION 92.3 % (92.0-98.5); BG OXYHEMOGLOBIN 91.8 % (94.0-97.0); BG PCO2 30.5 mmHg (35.0-45.0); BG PO2 62.3 mmHg (75.0-100.0); BG SAMPLE SITE RIGHT RADIAL; BG TOTAL HEMOGLOBIN 9.1 g/dL (12.0-18.0); BG VENT MODE VENT - CPAP
[2020-05-25] MEDS: LOSARTAN POTASSIUM 100 MG TABLET PO SCH (21:20)
[2020-05-25] MEDS: HYDRALAZINE 20MG/ML VIAL IV PRN (23:35)
[2020-05-26] VITALS (69 sets, daily range): BP systolic 103–178; BP diastolic 56–142
[2020-05-26] MEDS: HYDRALAZINE HCL 25MG TABLET NG SCH ×5 (01:04→23:20)
[2020-05-26] MEDS: IPRATROPIUM/ALBUTEROL 0.5-3(2.5)MG/3ML NEB HHN SCH ×4 (02:35→21:28)
[2020-05-26] MEDS: METHYLPREDNISOLONE SOD SUCC 40 MG/ML VIAL IV SCH ×3 (05:38→21:11)
[2020-05-26] MEDS: BLOOD SUGAR DIAGNOSTIC STRIP TEST SCH ×4 (05:39→23:16)
[2020-05-26] MEDS: INSULIN LISPRO 100 UNITS/ML SUBCUT SCH ×4 (05:40→23:19)
[2020-05-26 05:49] LABS: HEMATOCRIT. 33.6 % (36.0-48.0); HEMOGLOBIN. 11.3 g/dL (12.0-16.0); MEAN CORPUSCULAR HEMOGLOBIN 29.5 pg (28.0-32.0); MEAN CORPUSCULAR VOLUME 87.8 fL (81.0-99.0); MEAN PLATELET VOLUME 11.3 fl (7.4-10.4); PLATELET 126 x1000/uL (130-400); RED BLOOD CELL COUNT 3.82 mill/uL (4.2-5.4); RED CELL DISTRIBUTION WIDTH 15.6 % (11.6-14.6)
[2020-05-26 05:55] LABS: CHLORIDE 114 mEq/L (98-107)
[2020-05-26] MEDS: CARVEDILOL 3.125 MG TABLET PO SCH ×2 (08:31→21:12)
[2020-05-26] MEDS: CEFTAZIDIME PENTAHYDRATE 1 G in DEXTROSE 5% WATER 50 ML IV SCH ×3 (08:31→23:19)
[2020-05-26] MEDS: PANTOPRAZOLE SODIUM 40 MG/VIAL IV SCH (08:32)
[2020-05-26] MEDS: FLUCONAZOLE 100MG TABLET PO SCH (08:32)
[2020-05-26 09:38] LABS: BG BASE EXCESS -1.5 mmol/L (-2.0-2.0); BG CARBOXYHEMOGLOBIN 0.3 % (0.5-1.5); BG DEOXYHEMOGLOBIN 1.5 % (0.0-5.0); BG FRACTION INSPIRED OXYGEN 40; BG HCO3 ACT 21.4 mmol/L (22.0-26.0); BG METHEMOGLOBIN 0.3 % (0.0-1.5); BG OXYGEN SATURATION 98.5 % (92.0-98.5); BG OXYHEMOGLOBIN 97.9 % (94.0-97.0); BG PCO2 30.7 mmHg (35.0-45.0); BG PH 7.462 (7.350-7.450); BG PO2 144.9 mmHg (75.0-100.0); BG SAMPLE SITE RIGHT RADIAL; BG TOTAL HEMOGLOBIN 12.2 g/dL (12.0-18.0); BG TOTAL RESPIRATORY RATE 22 b/min; BG VENT MODE VENT - CPAP
[2020-05-26] MEDS ORDERED: INSULIN GLARGINE UD 100 UNITS/ML SYR SUBCUT SCH (11:00)
[2020-05-26] MEDS: LEVOFLOXACIN 250MG TABLET PO SCH (11:11)
[2020-05-26] MEDS: SODIUM CHLORIDE 0.45% 1000ML IV SCH (11:12)
[2020-05-26 11:13] LABS: NUCLEATED RED BLOOD CELLS 1 /100 WBC
[2020-05-26 11:14] LABS: PLATELET ESTIMATE SLIGHTLY DECREASED
[2020-05-26] MEDS ORDERED: RACEPINEPHRINE 2.25% 0.5ML NEB VIAL HHN SCH (12:00)
[2020-05-26] MEDS: HYDRALAZINE 20MG/ML VIAL IV PRN (15:11)
[2020-05-26 16:38] LABS: BG BASE EXCESS 0.8 mmol/L (-2.0-2.0); BG CARBOXYHEMOGLOBIN 0.2 % (0.5-1.5); BG DEOXYHEMOGLOBIN 1.7 % (0.0-5.0); BG FRACTION INSPIRED OXYGEN 40; BG HCO3 ACT 24.4 mmol/L (22.0-26.0); BG OXYGEN SATURATION 98.3 % (92.0-98.5); BG OXYHEMOGLOBIN 98.1 % (94.0-97.0); BG PCO2 35.3 mmHg (35.0-45.0); BG PH 7.457 (7.350-7.450); BG TOTAL HEMOGLOBIN 12.1 g/dL (12.0-18.0); BG TOTAL RESPIRATORY RATE 24 b/min; BG VENT MODE MASK - BIPAP
[2020-05-26] MEDS: LOSARTAN POTASSIUM 100 MG TABLET PO SCH (21:11)
[2020-05-26] MEDS: INSULIN GLARGINE UD 100 UNITS/ML SYR SUBCUT SCH (23:20)
[2020-05-27] VITALS (41 sets, daily range): BP systolic 138–190; BP diastolic 68–134
[2020-05-27] MEDS: IPRATROPIUM/ALBUTEROL 0.5-3(2.5)MG/3ML NEB HHN SCH ×4 (04:30→21:11)
[2020-05-27] MEDS: BLOOD SUGAR DIAGNOSTIC STRIP TEST SCH ×4 (05:03→23:37)
[2020-05-27] MEDS: INSULIN LISPRO 100 UNITS/ML SUBCUT SCH ×4 (05:11→23:37)
[2020-05-27] MEDS: SODIUM CHLORIDE 0.45% 1000ML IV SCH ×2 (05:13→23:24)
[2020-05-27] MEDS: METHYLPREDNISOLONE SOD SUCC 40 MG/ML VIAL IV SCH ×3 (05:13→20:50)
[2020-05-27] MEDS: HYDRALAZINE HCL 25MG TABLET NG SCH ×4 (05:13→23:36)
[2020-05-27 05:58] LABS: HEMATOCRIT. 36.7 % (36.0-48.0); HEMOGLOBIN. 12.2 g/dL (12.0-16.0); MEAN CORPUSCULAR HEMOGLOBIN 29.5 pg (28.0-32.0); MEAN CORPUSCULAR VOLUME 88.5 fL (81.0-99.0); MEAN PLATELET VOLUME 10.5 fl (7.4-10.4); PLATELET 140 x1000/uL (130-400); RED BLOOD CELL COUNT 4.15 mill/uL (4.2-5.4); RED CELL DISTRIBUTION WIDTH 15.6 % (11.6-14.6)
[2020-05-27 06:13] LABS: CHLORIDE 114 mEq/L (98-107)
[2020-05-27] MEDS: CEFTAZIDIME PENTAHYDRATE 1 G in DEXTROSE 5% WATER 50 ML IV SCH ×3 (07:47→23:36)
[2020-05-27] MEDS: CARVEDILOL 3.125 MG TABLET PO SCH (08:34)
[2020-05-27] MEDS: PANTOPRAZOLE SODIUM 40 MG/VIAL IV SCH (08:34)
[2020-05-27] MEDS: FLUCONAZOLE 100MG TABLET PO SCH (08:34)
[2020-05-27 10:07] LABS: BG BASE EXCESS -0.8 mmol/L (-2.0-2.0); BG CARBOXYHEMOGLOBIN 0.3 % (0.5-1.5); BG DEOXYHEMOGLOBIN 1.5 % (0.0-5.0); BG HCO3 ACT 23.4 mmol/L (22.0-26.0); BG METHEMOGLOBIN 0.2 % (0.0-1.5); BG OXYGEN SATURATION 98.5 % (92.0-98.5); BG PCO2 37.2 mmHg (35.0-45.0); BG PH 7.417 (7.350-7.450); BG PO2 145.9 mmHg (75.0-100.0); BG SAMPLE SITE RIGHT RADIAL; BG TOTAL HEMOGLOBIN 12.9 g/dL (12.0-18.0); BG VENT MODE NASAL CANNULA
[2020-05-27] MEDS: INSULIN GLARGINE UD 100 UNITS/ML SYR SUBCUT SCH ×2 (11:19→20:52)
[2020-05-27] MEDS: LEVOFLOXACIN 250MG TABLET PO SCH (11:19)
[2020-05-27 11:37] LABS: PLATELET ESTIMATE NORMAL
[2020-05-27 15:06] LABS: ANA IFA Negative (.)
[2020-05-27] MEDS: HYDRALAZINE 20MG/ML VIAL IV PRN ×2 (15:38→21:06)
[2020-05-27] MEDS: DILTIAZEM HCL 60MG TABLET PO SCH (18:39)
[2020-05-27] MEDS: LOSARTAN POTASSIUM 100 MG TABLET PO SCH (20:49)
[2020-05-27] MEDS: CARVEDILOL 6.25 MG TABLET PO SCH (20:49)
[2020-05-28] VITALS (45 sets, daily range): BP systolic 125–175; BP diastolic 60–113
[2020-05-28] MEDS: IPRATROPIUM/ALBUTEROL 0.5-3(2.5)MG/3ML NEB HHN SCH ×3 (01:34→13:29)
[2020-05-28 04:10] LABS: HLA CLASS 1 ANTIBODY Negative (Negative); IIb/IIIa ANTIBODY Negative (Negative); Ia/IIa ANTIBODY Negative (Negative); Ib/IX ANTIBODY Negative (Negative)
[2020-05-28] MEDS: BLOOD SUGAR DIAGNOSTIC STRIP TEST SCH ×3 (05:17→18:45)
[2020-05-28] MEDS: METHYLPREDNISOLONE SOD SUCC 40 MG/ML VIAL IV SCH (05:32)
[2020-05-28] MEDS: HYDRALAZINE HCL 25MG TABLET NG SCH ×3 (05:33→17:07)
[2020-05-28] MEDS: INSULIN LISPRO 100 UNITS/ML SUBCUT SCH ×3 (05:34→18:00)
[2020-05-28 06:21] LABS: HEMATOCRIT. 39.3 % (36.0-48.0); HEMOGLOBIN. 12.9 g/dL (12.0-16.0); MEAN CORPUSCULAR HEMOGLOBIN 29.4 pg (28.0-32.0); MEAN CORPUSCULAR VOLUME 89.6 fL (81.0-99.0); MEAN PLATELET VOLUME 10.6 fl (7.4-10.4); PLATELET 143 x1000/uL (130-400); RED BLOOD CELL COUNT 4.38 mill/uL (4.2-5.4)
[2020-05-28 06:28] LABS: CHLORIDE 112 mEq/L (98-107)
[2020-05-28] MEDS: HYDRALAZINE 20MG/ML VIAL IV PRN (07:14)
[2020-05-28] MEDS: CEFTAZIDIME PENTAHYDRATE 1 G in DEXTROSE 5% WATER 50 ML IV SCH ×2 (08:49→16:48)
[2020-05-28] MEDS: FLUCONAZOLE 100MG TABLET PO SCH (08:49)
[2020-05-28] MEDS: DILTIAZEM HCL 60MG TABLET PO SCH (08:49)
[2020-05-28] MEDS: CARVEDILOL 6.25 MG TABLET PO SCH ×2 (08:49→20:59)
[2020-05-28] MEDS: PANTOPRAZOLE SODIUM 40 MG/VIAL IV SCH (08:49)
[2020-05-28 10:08] LABS: BG BASE EXCESS -3.9 mmol/L (-2.0-2.0); BG CARBOXYHEMOGLOBIN 0.3 % (0.5-1.5); BG FRACTION INSPIRED OXYGEN 32; BG HCO3 ACT 21.1 mmol/L (22.0-26.0); BG METHEMOGLOBIN 0.3 % (0.0-1.5); BG OXYHEMOGLOBIN 97.4 % (94.0-97.0); BG PH 7.362 (7.350-7.450); BG PO2 125.6 mmHg (75.0-100.0); BG SAMPLE SITE RIGHT RADIAL; BG VENT MODE NASAL CANNULA
[2020-05-28] MEDS: LEVOFLOXACIN 250MG TABLET PO SCH (11:00)
[2020-05-28] MEDS: INSULIN GLARGINE UD 100 UNITS/ML SYR SUBCUT SCH (11:05)
[2020-05-28] MEDS: SODIUM CHLORIDE 0.45% 1000ML IV SCH (16:52)
[2020-05-28 17:26] LABS: PLATELET ESTIMATE NORMAL
[2020-05-28] MEDS: LOSARTAN POTASSIUM 100 MG TABLET PO SCH (20:59)
[2020-05-28] MEDS ORDERED: DILTIAZEM HCL 120MG CAPSULE CD 24HR PO SCH (21:00)
[2020-05-28] MEDS: ALBUTEROL (0.083%) 2.5MG/3ML NEB HHN PRN (22:07)
[2020-05-29] VITALS (47 sets, daily range): BP systolic 107–161; BP diastolic 49–114
[2020-05-29] MEDS: BLOOD SUGAR DIAGNOSTIC STRIP TEST SCH ×5 (00:06→23:33)
[2020-05-29] MEDS: HYDRALAZINE HCL 25MG TABLET NG SCH ×5 (00:13→23:33)
[2020-05-29] MEDS: CEFTAZIDIME PENTAHYDRATE 1 G in DEXTROSE 5% WATER 50 ML IV SCH ×4 (00:14→23:24)
[2020-05-29] MEDS: INSULIN GLARGINE UD 100 UNITS/ML SYR SUBCUT SCH ×3 (00:15→22:00)
[2020-05-29] MEDS: IPRATROPIUM/ALBUTEROL 0.5-3(2.5)MG/3ML NEB HHN SCH ×4 (02:03→21:08)
[2020-05-29] MEDS: INSULIN LISPRO 100 UNITS/ML SUBCUT SCH ×5 (05:38→23:33)
[2020-05-29] MEDS ORDERED: METHYLPREDNISOLONE SOD SUCC 40 MG/ML VIAL IV SCH ×2 (06:00→08:45)
[2020-05-29 07:39] LABS: BG BASE EXCESS -1.5 mmol/L (-2.0-2.0); BG CARBOXYHEMOGLOBIN 0.2 % (0.5-1.5); BG DEOXYHEMOGLOBIN 0.8 % (0.0-5.0); BG FRACTION INSPIRED OXYGEN 40; BG HCO3 ACT 21.4 mmol/L (22.0-26.0); BG METHEMOGLOBIN 0.1 % (0.0-1.5); BG OXYGEN SATURATION 99.2 % (92.0-98.5); BG OXYHEMOGLOBIN 98.9 % (94.0-97.0); BG PCO2 30.8 mmHg (35.0-45.0); BG PO2 208.3 mmHg (75.0-100.0); BG SAMPLE SITE RIGHT RADIAL; BG TOTAL HEMOGLOBIN 12.6 g/dL (12.0-18.0); BG TOTAL RESPIRATORY RATE 30 b/min; BG VENT MODE MASK - BIPAP
[2020-05-29] MEDS: FLUCONAZOLE 100MG TABLET PO SCH (08:11)
[2020-05-29] MEDS: PANTOPRAZOLE SODIUM 40 MG/VIAL IV SCH (08:11)
[2020-05-29] MEDS: AMLODIPINE 5MG TABLET PO SCH (08:12)
[2020-05-29] MEDS: CARVEDILOL 6.25 MG TABLET PO SCH ×2 (08:12→21:07)
[2020-05-29] MEDS ORDERED: RACEPINEPHRINE 2.25% 0.5ML NEB VIAL HHN SCH (08:45)
[2020-05-29] MEDS: FUROSEMIDE 40MG/4ML VIAL IVP SCH (09:02)
[2020-05-29] MEDS: SODIUM CHLORIDE 0.45% 1000ML IV SCH (09:25)
[2020-05-29] MEDS: LEVOFLOXACIN 250MG TABLET PO SCH (12:24)
[2020-05-29] MEDS: METHYLPREDNISOLONE SOD SUCC 40 MG/ML VIAL IV SCH ×2 (16:21→22:33)
[2020-05-30] VITALS (48 sets, daily range): BP systolic 115–179; BP diastolic 43–89
[2020-05-30] MEDS: SODIUM CHLORIDE 0.45% 1000ML IV SCH (02:16)
[2020-05-30] MEDS: IPRATROPIUM/ALBUTEROL 0.5-3(2.5)MG/3ML NEB HHN SCH ×4 (04:35→20:34)
[2020-05-30 05:15] LABS: HEMATOCRIT. 35.7 % (36.0-48.0); HEMOGLOBIN. 12.1 g/dL (12.0-16.0); MEAN CORPUSCULAR VOLUME 88.4 fL (81.0-99.0); MEAN PLATELET VOLUME 10.5 fl (7.4-10.4); PLATELET 126 x1000/uL (130-400); RED BLOOD CELL COUNT 4.04 mill/uL (4.2-5.4); RED CELL DISTRIBUTION WIDTH 15.8 % (11.6-14.6)
[2020-05-30 05:25] LABS: CHLORIDE 112 mEq/L (98-107)
[2020-05-30] MEDS: METHYLPREDNISOLONE SOD SUCC 40 MG/ML VIAL IV SCH ×3 (05:25→21:30)
[2020-05-30] MEDS: HYDRALAZINE HCL 25MG TABLET NG SCH ×3 (05:27→18:03)
[2020-05-30] MEDS: INSULIN LISPRO 100 UNITS/ML SUBCUT SCH ×4 (06:00→23:12)
[2020-05-30] MEDS: BLOOD SUGAR DIAGNOSTIC STRIP TEST SCH ×4 (06:17→23:12)
[2020-05-30] MEDS: PANTOPRAZOLE SODIUM 40 MG/VIAL IV SCH (08:25)
[2020-05-30] MEDS: AMLODIPINE 5MG TABLET PO SCH (08:25)
[2020-05-30] MEDS: FLUCONAZOLE 100MG TABLET PO SCH (08:25)
[2020-05-30] MEDS: FUROSEMIDE 40MG/4ML VIAL IVP SCH (08:25)
[2020-05-30] MEDS: CARVEDILOL 6.25 MG TABLET PO SCH (08:26)
[2020-05-30] MEDS: CEFTAZIDIME PENTAHYDRATE 1 G in DEXTROSE 5% WATER 50 ML IV SCH ×2 (08:28→15:34)
[2020-05-30] MEDS: LEVOFLOXACIN 250MG TABLET PO SCH (10:44)
[2020-05-30] MEDS: INSULIN GLARGINE UD 100 UNITS/ML SYR SUBCUT SCH ×2 (10:44→22:00)
[2020-05-30 11:00] LABS: BG BASE EXCESS 0.1 mmol/L (-2.0-2.0); BG CARBOXYHEMOGLOBIN 0.3 % (0.5-1.5); BG DEOXYHEMOGLOBIN 2.5 % (0.0-5.0); BG FRACTION INSPIRED OXYGEN 32; BG HCO3 ACT 24.9 mmol/L (22.0-26.0); BG METHEMOGLOBIN 0.4 % (0.0-1.5); BG OXYGEN SATURATION 97.5 % (92.0-98.5); BG OXYHEMOGLOBIN 96.8 % (94.0-97.0); BG PCO2 40.7 mmHg (35.0-45.0); BG PH 7.404 (7.350-7.450); BG PO2 114.8 mmHg (75.0-100.0); BG SAMPLE SITE RIGHT RADIAL; BG TOTAL HEMOGLOBIN 12.4 g/dL (12.0-18.0); BG VENT MODE NASAL CANNULA
[2020-05-30] MEDS: CARVEDILOL 12.5MG TABLET PO SCH (21:30)
[2020-05-30 21:53] LABS: PLATELET ESTIMATE SLIGHTLY DECREASED
[2020-05-30] MEDS: MORPHINE SULFATE 2 MG/ML CPJ (NOT FOR IM USE) IV PRN (22:11)
[2020-05-31] VITALS (44 sets, daily range): BP systolic 108–158; BP diastolic 51–88
[2020-05-31] MEDS: CEFTAZIDIME PENTAHYDRATE 1 G in DEXTROSE 5% WATER 50 ML IV SCH ×3 (00:14→15:18)
[2020-05-31] MEDS: HYDRALAZINE HCL 25MG TABLET NG SCH ×4 (00:14→17:45)
[2020-05-31] MEDS: IPRATROPIUM/ALBUTEROL 0.5-3(2.5)MG/3ML NEB HHN SCH ×4 (00:52→21:03)
[2020-05-31] MEDS: METHYLPREDNISOLONE SOD SUCC 40 MG/ML VIAL IV SCH ×3 (05:19→21:01)
[2020-05-31] MEDS: BLOOD SUGAR DIAGNOSTIC STRIP TEST SCH ×3 (05:19→17:30)
[2020-05-31] MEDS: INSULIN LISPRO 100 UNITS/ML SUBCUT SCH ×3 (05:19→17:45)
[2020-05-31 05:41] LABS: HEMATOCRIT. 34.6 % (36.0-48.0); HEMOGLOBIN. 11.5 g/dL (12.0-16.0); MEAN CORPUSCULAR HEMOGLOBIN 29.1 pg (28.0-32.0); MEAN CORPUSCULAR VOLUME 87.9 fL (81.0-99.0); MEAN PLATELET VOLUME 11.1 fl (7.4-10.4); PLATELET 124 x1000/uL (130-400); RED BLOOD CELL COUNT 3.93 mill/uL (4.2-5.4); RED CELL DISTRIBUTION WIDTH 15.8 % (11.6-14.6)
[2020-05-31 05:45] LABS: CHLORIDE 111 mEq/L (98-107)
[2020-05-31] MEDS: FLUCONAZOLE 100MG TABLET PO SCH (08:45)
[2020-05-31] MEDS: AMLODIPINE 5MG TABLET PO SCH (08:45)
[2020-05-31] MEDS: FUROSEMIDE 40MG/4ML VIAL IVP SCH (08:45)
[2020-05-31] MEDS: CARVEDILOL 12.5MG TABLET PO SCH ×2 (08:45→21:02)
[2020-05-31] MEDS: PANTOPRAZOLE SODIUM 40 MG/VIAL IV SCH (08:46)
[2020-05-31] MEDS: INSULIN GLARGINE UD 100 UNITS/ML SYR SUBCUT SCH ×2 (10:00→21:01)
[2020-05-31] MEDS: LEVOFLOXACIN 250MG TABLET PO SCH (11:54)
[2020-05-31] MEDS: SODIUM CHLORIDE 0.45% 1000ML IV SCH (11:54)
[2020-05-31 13:16] LABS: PLATELET ESTIMATE SLIGHTLY DECREASED
[2020-05-31 16:38] LABS: BG BASE EXCESS -0.7 mmol/L (-2.0-2.0); BG CARBOXYHEMOGLOBIN 0.3 % (0.5-1.5); BG DEOXYHEMOGLOBIN 2.6 % (0.0-5.0); BG FRACTION INSPIRED OXYGEN 32; BG METHEMOGLOBIN 0.2 % (0.0-1.5); BG OXYGEN SATURATION 97.4 % (92.0-98.5); BG OXYHEMOGLOBIN 96.9 % (94.0-97.0); BG PCO2 39.9 mmHg (35.0-45.0); BG PH 7.397 (7.350-7.450); BG PO2 103.2 mmHg (75.0-100.0); BG SAMPLE SITE LEFT RADIAL; BG TOTAL HEMOGLOBIN 11.8 g/dL (12.0-18.0); BG VENT MODE NASAL CANNULA
[2020-06-01] VITALS (46 sets, daily range): BP systolic 100–162; BP diastolic 23–78
[2020-06-01] MEDS: BLOOD SUGAR DIAGNOSTIC STRIP TEST SCH ×5 (00:16→23:15)
[2020-06-01] MEDS: CEFTAZIDIME PENTAHYDRATE 1 G in DEXTROSE 5% WATER 50 ML IV SCH ×3 (00:34→16:39)
[2020-06-01] MEDS: IPRATROPIUM/ALBUTEROL 0.5-3(2.5)MG/3ML NEB HHN SCH ×4 (03:01→20:51)
[2020-06-01] MEDS: METHYLPREDNISOLONE SOD SUCC 40 MG/ML VIAL IV SCH ×4 (05:24→21:44)
[2020-06-01] MEDS: SODIUM CHLORIDE 0.45% 1000ML IV SCH ×2 (05:25→21:45)
[2020-06-01] MEDS: HYDRALAZINE HCL 25MG TABLET NG SCH ×5 (05:26→23:59)
[2020-06-01] MEDS: INSULIN LISPRO 100 UNITS/ML SUBCUT SCH ×5 (05:29→23:15)
[2020-06-01 05:55] LABS: HEMATOCRIT. 31.9 % (36.0-48.0); HEMOGLOBIN. 10.8 g/dL (12.0-16.0); MEAN CORPUSCULAR HEMOGLOBIN 29.4 pg (28.0-32.0); MEAN PLATELET VOLUME 10.9 fl (7.4-10.4); PLATELET 112 x1000/uL (130-400); RED BLOOD CELL COUNT 3.67 mill/uL (4.2-5.4); RED CELL DISTRIBUTION WIDTH 15.7 % (11.6-14.6)
[2020-06-01 06:04] LABS: CHLORIDE 108 mEq/L (98-107)
[2020-06-01] MEDS: PANTOPRAZOLE SODIUM 40 MG/VIAL IV SCH (09:07)
[2020-06-01] MEDS: AMLODIPINE 5MG TABLET PO SCH (09:07)
[2020-06-01] MEDS: FUROSEMIDE 40MG/4ML VIAL IVP SCH (09:07)
[2020-06-01] MEDS: FLUCONAZOLE 100MG TABLET PO SCH (09:07)
[2020-06-01] MEDS: CARVEDILOL 12.5MG TABLET PO SCH (09:08)
[2020-06-01] MEDS: INSULIN GLARGINE UD 100 UNITS/ML SYR SUBCUT SCH ×2 (09:30→22:00)
[2020-06-01 11:25] LABS: PLATELET ESTIMATE DECREASED
[2020-06-01 13:48] LABS: BG BASE EXCESS 0.8 mmol/L (-2.0-2.0); BG CARBOXYHEMOGLOBIN 0.2 % (0.5-1.5); BG DEOXYHEMOGLOBIN 1.9 % (0.0-5.0); BG HCO3 ACT 24.4 mmol/L (22.0-26.0); BG METHEMOGLOBIN 0.3 % (0.0-1.5); BG OXYGEN SATURATION 98.1 % (92.0-98.5); BG OXYHEMOGLOBIN 97.6 % (94.0-97.0); BG PCO2 35.3 mmHg (35.0-45.0); BG PH 7.457 (7.350-7.450); BG PO2 129.9 mmHg (75.0-100.0); BG SAMPLE SITE RIGHT RADIAL; BG TOTAL HEMOGLOBIN 11.3 g/dL (12.0-18.0); BG VENT MODE MASK - BIPAP
[2020-06-01] MEDS: CARVEDILOL 6.25 MG TABLET PO SCH (21:44)
[2020-06-02] VITALS (45 sets, daily range): BP systolic 98–142; BP diastolic 50–96
[2020-06-02] MEDS ORDERED: ALBUMIN HUMAN 25GM/100ML (25%) IV NR
[2020-06-02] MEDS: IPRATROPIUM/ALBUTEROL 0.5-3(2.5)MG/3ML NEB HHN SCH ×3 (02:31→15:39)
[2020-06-02] MEDS: HYDRALAZINE HCL 25MG TABLET NG SCH ×3 (06:00→18:35)
[2020-06-02] MEDS: INSULIN LISPRO 100 UNITS/ML SUBCUT SCH ×3 (06:00→18:00)
[2020-06-02] MEDS: BLOOD SUGAR DIAGNOSTIC STRIP TEST SCH ×3 (06:11→18:34)
[2020-06-02] MEDS: METHYLPREDNISOLONE SOD SUCC 40 MG/ML VIAL IV SCH ×3 (06:41→20:59)
[2020-06-02 06:52] LABS: CHLORIDE 112 mEq/L (98-107)
[2020-06-02 08:11] LABS: BG BASE EXCESS -0.3 mmol/L (-2.0-2.0); BG CARBOXYHEMOGLOBIN 0.2 % (0.5-1.5); BG DEOXYHEMOGLOBIN 1.4 % (0.0-5.0); BG FRACTION INSPIRED OXYGEN 40; BG HCO3 ACT 23.3 mmol/L (22.0-26.0); BG METHEMOGLOBIN 0.3 % (0.0-1.5); BG OXYGEN SATURATION 98.6 % (92.0-98.5); BG OXYHEMOGLOBIN 98.1 % (94.0-97.0); BG PCO2 34.3 mmHg (35.0-45.0); BG PO2 172.8 mmHg (75.0-100.0); BG SAMPLE SITE RIGHT RADIAL; BG TOTAL HEMOGLOBIN 10.6 g/dL (12.0-18.0); BG TOTAL RESPIRATORY RATE 18 b/min; BG VENT MODE MASK - BIPAP
[2020-06-02] MEDS: FUROSEMIDE 40MG/4ML VIAL IVP SCH (09:52)
[2020-06-02] MEDS: PANTOPRAZOLE SODIUM 40 MG/VIAL IV SCH (09:52)
[2020-06-02] MEDS: FLUCONAZOLE 100MG TABLET PO SCH (09:52)
[2020-06-02] MEDS: CARVEDILOL 6.25 MG TABLET PO SCH ×2 (09:53→20:54)
[2020-06-02] MEDS: INSULIN GLARGINE UD 100 UNITS/ML SYR SUBCUT SCH ×2 (10:11→21:07)
[2020-06-02 10:39] LABS: BG CARBOXYHEMOGLOBIN 0.3 % (0.5-1.5); BG DEOXYHEMOGLOBIN 2.2 % (0.0-5.0); BG FRACTION INSPIRED OXYGEN 50; BG HCO3 ACT 25.9 mmol/L (22.0-26.0); BG METHEMOGLOBIN 0.2 % (0.0-1.5); BG OXYGEN SATURATION 97.8 % (92.0-98.5); BG OXYHEMOGLOBIN 97.3 % (94.0-97.0); BG PCO2 42.5 mmHg (35.0-45.0); BG PH 7.403 (7.350-7.450); BG PO2 124.7 mmHg (75.0-100.0); BG SAMPLE SITE RIGHT RADIAL; BG TOTAL HEMOGLOBIN 10.8 g/dL (12.0-18.0); BG VENT MODE MASK - VENTI
[2020-06-02] MEDS: DOCUSATE SODIUM SUGAR FREE 100MG/10ML UDC NG PRN (12:18)
[2020-06-02] MEDS: SODIUM CHLORIDE 0.45% 1000ML IV SCH (14:09)
[2020-06-02 16:09] LABS: HEMATOCRIT. 30.3 % (36.0-48.0); HEMOGLOBIN. 10.1 g/dL (12.0-16.0); MEAN CORPUSCULAR HEMOGLOBIN 29.3 pg (28.0-32.0); MEAN CORPUSCULAR VOLUME 88.3 fL (81.0-99.0); MEAN PLATELET VOLUME 10.5 fl (7.4-10.4); PLATELET 102 x1000/uL (130-400); RED BLOOD CELL COUNT 3.43 mill/uL (4.2-5.4); RED CELL DISTRIBUTION WIDTH 15.6 % (11.6-14.6)
[2020-06-02 16:44] LABS: NUCLEATED RED BLOOD CELLS 4 /100 WBC; PLATELET ESTIMATE DECREASED
[2020-06-03] VITALS (44 sets, daily range): BP systolic 105–148; BP diastolic 50–70
[2020-06-03] MEDS ORDERED: ALBUMIN HUMAN 25GM/100ML (25%) IV NR
[2020-06-03] MEDS: HYDRALAZINE HCL 25MG TABLET NG SCH ×4 (00:45→17:52)
[2020-06-03] MEDS: BLOOD SUGAR DIAGNOSTIC STRIP TEST SCH ×4 (00:45→17:48)
[2020-06-03] MEDS ORDERED: FUROSEMIDE 40MG/4ML VIAL IVP NR (02:00)
[2020-06-03] MEDS: METHYLPREDNISOLONE SOD SUCC 40 MG/ML VIAL IV SCH ×3 (05:44→21:18)
[2020-06-03] MEDS: INSULIN LISPRO 100 UNITS/ML SUBCUT SCH ×4 (05:45→17:48)
[2020-06-03] MEDS: SODIUM CHLORIDE 0.45% 1000ML IV SCH (06:40)
[2020-06-03 06:47] LABS: CHLORIDE 109 mEq/L (98-107)
[2020-06-03] MEDS: ALBUTEROL (0.083%) 2.5MG/3ML NEB HHN PRN (08:33)
[2020-06-03 09:25] LABS: HEMATOCRIT. 29.3 % (36.0-48.0); HEMOGLOBIN. 9.7 g/dL (12.0-16.0); MEAN CORPUSCULAR HEMOGLOBIN 29.4 pg (28.0-32.0); MEAN CORPUSCULAR VOLUME 88.4 fL (81.0-99.0); MEAN PLATELET VOLUME 10.6 fl (7.4-10.4); PLATELET 90 x1000/uL (130-400); RED BLOOD CELL COUNT 3.31 mill/uL (4.2-5.4); RED CELL DISTRIBUTION WIDTH 15.6 % (11.6-14.6)
[2020-06-03] MEDS: PANTOPRAZOLE SODIUM 40 MG/VIAL IV SCH (09:44)
[2020-06-03] MEDS: FUROSEMIDE 40MG/4ML VIAL IVP SCH (09:44)
[2020-06-03] MEDS: FLUCONAZOLE 100MG TABLET PO SCH (09:45)
[2020-06-03] MEDS: CARVEDILOL 6.25 MG TABLET PO SCH ×2 (09:45→21:19)
[2020-06-03] MEDS: INSULIN GLARGINE UD 100 UNITS/ML SYR SUBCUT SCH ×2 (09:51→21:17)
[2020-06-03 12:40] LABS: PLATELET ESTIMATE SLIGHTLY DECREASED
[2020-06-03] MEDS: IPRATROPIUM/ALBUTEROL 0.5-3(2.5)MG/3ML NEB HHN SCH ×3 (12:50→23:58)
[2020-06-03] MEDS: CEFEPIME 1,000 MG in DEXTROSE 5% WATER 50 ML IV SCH (15:40)
[2020-06-03 15:41] LABS: CLARITY URINE CLEAR (CLEAR); COLOR URINE YELLOW (YELLOW); KETONES URINE NEGATIVE (NEGATIVE); LEUKOCYTE ESTERASE URINE 2+ (NEGATIVE); NITRITE URINE NEGATIVE (NEGATIVE); OCCULT BLOOD URINE 1+ (NEGATIVE); PROTEIN URINE 2+ (NEGATIVE); SPECIFIC GRAVITY URINE 1.016 (1.005-1.030); UROBILINOGEN URINE 0.2 E.U./dL (0.2-1.0)
[2020-06-03] MEDS ORDERED: VANCOMYCIN 1,500 MG in DEXT 5% WATER 250 ML IV SCH (16:00)
[2020-06-04] VITALS (46 sets, daily range): BP systolic 116–180; BP diastolic 53–87
[2020-06-04] MEDS: HYDRALAZINE HCL 25MG TABLET NG SCH ×4 (01:38→18:06)
[2020-06-04] MEDS: SODIUM CHLORIDE 0.45% 1000ML IV SCH ×2 (01:38→16:32)
[2020-06-04] MEDS: INSULIN LISPRO 100 UNITS/ML SUBCUT SCH ×4 (01:42→18:03)
[2020-06-04] MEDS: CEFEPIME 1,000 MG in DEXTROSE 5% WATER 50 ML IV SCH ×2 (06:38→18:02)
[2020-06-04] MEDS: METHYLPREDNISOLONE SOD SUCC 40 MG/ML VIAL IV SCH ×3 (06:38→21:49)
[2020-06-04] MEDS: BLOOD SUGAR DIAGNOSTIC STRIP TEST SCH ×4 (06:39→18:00)
[2020-06-04 06:40] LABS: CHLORIDE 108 mEq/L (98-107); HEMATOCRIT. 31.7 % (36.0-48.0); HEMOGLOBIN. 10.4 g/dL (12.0-16.0); MEAN CORPUSCULAR VOLUME 88.1 fL (81.0-99.0); MEAN PLATELET VOLUME 10.7 fl (7.4-10.4); PLATELET 93 x1000/uL (130-400); RED BLOOD CELL COUNT 3.59 mill/uL (4.2-5.4); RED CELL DISTRIBUTION WIDTH 16.1 % (11.6-14.6)
[2020-06-04] MEDS: MORPHINE SULFATE 2 MG/ML CPJ (NOT FOR IM USE) IV PRN (07:56)
[2020-06-04] MEDS: FUROSEMIDE 40MG/4ML VIAL IVP SCH (07:57)
[2020-06-04] MEDS: CARVEDILOL 6.25 MG TABLET PO SCH ×2 (07:57→21:32)
[2020-06-04] MEDS: PANTOPRAZOLE SODIUM 40 MG/VIAL IV SCH (07:57)
[2020-06-04] MEDS: DOCUSATE SODIUM SUGAR FREE 100MG/10ML UDC NG PRN (07:58)
[2020-06-04 08:02] LABS: BG BASE EXCESS 3.7 mmol/L (-2.0-2.0); BG CARBOXYHEMOGLOBIN 0.3 % (0.5-1.5); BG DEOXYHEMOGLOBIN 5.3 % (0.0-5.0); BG FRACTION INSPIRED OXYGEN 50; BG HCO3 ACT 27.8 mmol/L (22.0-26.0); BG METHEMOGLOBIN 0.1 % (0.0-1.5); BG OXYGEN SATURATION 94.7 % (92.0-98.5); BG OXYHEMOGLOBIN 94.3 % (94.0-97.0); BG PCO2 39.9 mmHg (35.0-45.0); BG PH 7.461 (7.350-7.450); BG SAMPLE SITE RIGHT RADIAL; BG TOTAL HEMOGLOBIN 10.9 g/dL (12.0-18.0); BG VENT MODE MASK - VENTI
[2020-06-04] MEDS: IPRATROPIUM/ALBUTEROL 0.5-3(2.5)MG/3ML NEB HHN SCH ×3 (09:07→21:28)
[2020-06-04 09:43] LABS: NUCLEATED RED BLOOD CELLS 1 /100 WBC
[2020-06-04 09:44] LABS: PLATELET ESTIMATE DECREASED
[2020-06-04] MEDS: INSULIN GLARGINE UD 100 UNITS/ML SYR SUBCUT SCH ×2 (11:28→21:50)
[2020-06-04] MEDS ORDERED: VANCOMYCIN 1250MG in DEXTROSE 5% WATER 250ML IV SCH (16:00)
[2020-06-04] MEDS ORDERED: FUROSEMIDE 40MG/4ML VIAL IVP NR (20:30)
[2020-06-04] MEDS ORDERED: ALBUMIN HUMAN 25GM/100ML (25%) IV NR (20:30)
[2020-06-04] MEDS: SODIUM CHLORIDE 0.45% 1,000 ML IV SCH (21:15)
[2020-06-05] VITALS (46 sets, daily range): BP systolic 120–182; BP diastolic 35–101
[2020-06-05] MEDS: HYDRALAZINE HCL 25MG TABLET NG SCH ×4 (00:19→18:08)
[2020-06-05] MEDS: BLOOD SUGAR DIAGNOSTIC STRIP TEST SCH ×4 (00:32→18:08)
[2020-06-05] MEDS: INSULIN LISPRO 100 UNITS/ML SUBCUT SCH ×4 (00:35→18:00)
[2020-06-05] MEDS: IPRATROPIUM/ALBUTEROL 0.5-3(2.5)MG/3ML NEB HHN SCH ×4 (03:40→20:31)
[2020-06-05] MEDS: METHYLPREDNISOLONE SOD SUCC 40 MG/ML VIAL IV SCH ×3 (06:09→21:20)
[2020-06-05] MEDS: CEFEPIME 1,000 MG in DEXTROSE 5% WATER 50 ML IV SCH (06:09)
[2020-06-05 06:52] LABS: HEMATOCRIT. 29.7 % (36.0-48.0); HEMOGLOBIN. 9.9 g/dL (12.0-16.0); MEAN CORPUSCULAR HEMOGLOBIN 29.5 pg (28.0-32.0); MEAN CORPUSCULAR VOLUME 88.2 fL (81.0-99.0); PLATELET 88 x1000/uL (130-400); RED BLOOD CELL COUNT 3.36 mill/uL (4.2-5.4); RED CELL DISTRIBUTION WIDTH 15.9 % (11.6-14.6)
[2020-06-05 07:00] LABS: CHLORIDE 106 mEq/L (98-107)
[2020-06-05] MEDS: PANTOPRAZOLE SODIUM 40 MG/VIAL IV SCH (08:01)
[2020-06-05] MEDS: MORPHINE SULFATE 2 MG/ML CPJ (NOT FOR IM USE) IV PRN ×3 (08:01→18:08)
[2020-06-05] MEDS: CARVEDILOL 6.25 MG TABLET PO SCH ×2 (08:01→21:00)
[2020-06-05] MEDS: FUROSEMIDE 40MG/4ML VIAL IVP SCH (08:01)
[2020-06-05 11:35] LABS: PLATELET ESTIMATE DECREASED
[2020-06-05] MEDS: INSULIN GLARGINE UD 100 UNITS/ML SYR SUBCUT SCH ×2 (11:58→21:22)
[2020-06-05] MEDS: SODIUM CHLORIDE 0.45% 1,000 ML IV SCH (13:30)
[2020-06-05] MEDS: DEXTROSE 50% WATER 50ML SYRINGE IV PRN (19:59)
[2020-06-06] VITALS (29 sets, daily range): BP systolic 111–167; BP diastolic 44–80
[2020-06-06] MEDS: IPRATROPIUM/ALBUTEROL 0.5-3(2.5)MG/3ML NEB HHN SCH ×4 (00:14→20:46)
[2020-06-06] MEDS: BLOOD SUGAR DIAGNOSTIC STRIP TEST SCH ×4 (00:36→17:04)
[2020-06-06] MEDS: DEXTROSE 50% WATER 50ML SYRINGE IV PRN (00:37)
[2020-06-06] MEDS: HYDRALAZINE HCL 25MG TABLET NG SCH ×4 (00:46→17:12)
[2020-06-06] MEDS: INSULIN LISPRO 100 UNITS/ML SUBCUT SCH ×4 (06:00→17:04)
[2020-06-06 06:40] LABS: CHLORIDE 107 mEq/L (98-107); HEMATOCRIT. 30.9 % (36.0-48.0); HEMOGLOBIN. 10.2 g/dL (12.0-16.0); MEAN CORPUSCULAR HEMOGLOBIN 29.2 pg (28.0-32.0); MEAN CORPUSCULAR VOLUME 88.3 fL (81.0-99.0); PLATELET 79 x1000/uL (130-400)
[2020-06-06] MEDS: METHYLPREDNISOLONE SOD SUCC 40 MG/ML VIAL IV SCH ×3 (07:12→21:36)
[2020-06-06] MEDS: SODIUM CHLORIDE 0.45% 1,000 ML IV SCH ×2 (07:18→21:35)
[2020-06-06] MEDS: CARVEDILOL 6.25 MG TABLET PO SCH ×2 (09:00→21:44)
[2020-06-06] MEDS: FUROSEMIDE 40MG/4ML VIAL IVP SCH (09:07)
[2020-06-06 09:19] LABS: BG BASE EXCESS 2.6 mmol/L (-2.0-2.0); BG CARBOXYHEMOGLOBIN 0.3 % (0.5-1.5); BG DEOXYHEMOGLOBIN 0.8 % (0.0-5.0); BG FRACTION INSPIRED OXYGEN 100; BG HCO3 ACT 29.6 mmol/L (22.0-26.0); BG METHEMOGLOBIN 0.1 % (0.0-1.5); BG OXYGEN SATURATION 99.2 % (92.0-98.5); BG OXYHEMOGLOBIN 98.8 % (94.0-97.0); BG PCO2 58.7 mmHg (35.0-45.0); BG PH 7.321 (7.350-7.450); BG PO2 478.9 mmHg (75.0-100.0); BG SAMPLE SITE RIGHT RADIAL; BG TOTAL HEMOGLOBIN 10.8 g/dL (12.0-18.0); BG TOTAL RESPIRATORY RATE 18 b/min; BG VENT MODE MASK - BIPAP
[2020-06-06] MEDS: INSULIN GLARGINE UD 100 UNITS/ML SYR SUBCUT SCH ×2 (10:00→21:43)
[2020-06-06 10:15] LABS: NUCLEATED RED BLOOD CELLS 1 /100 WBC
[2020-06-06] MEDS ORDERED: FUROSEMIDE 40MG/4ML VIAL IVP SCH (10:15)
[2020-06-06 10:16] LABS: PLATELET ESTIMATE DECREASED
[2020-06-06 10:53] LABS: BG BASE EXCESS 6.2 mmol/L (-2.0-2.0); BG CARBOXYHEMOGLOBIN 0.3 % (0.5-1.5); BG DEOXYHEMOGLOBIN 1.1 % (0.0-5.0); BG FRACTION INSPIRED OXYGEN 80; BG HCO3 ACT 32.3 mmol/L (22.0-26.0); BG METHEMOGLOBIN 0.3 % (0.0-1.5); BG OXYGEN SATURATION 98.9 % (92.0-98.5); BG OXYHEMOGLOBIN 98.3 % (94.0-97.0); BG PCO2 53.8 mmHg (35.0-45.0); BG PH 7.396 (7.350-7.450); BG PO2 351.2 mmHg (75.0-100.0); BG SAMPLE SITE RIGHT RADIAL; BG TOTAL HEMOGLOBIN 11.6 g/dL (12.0-18.0); BG VENT MODE MASK - BIPAP
[2020-06-06] MEDS: CEFEPIME 1,000 MG in DEXTROSE 5% WATER 50 ML IV SCH (16:02)
[2020-06-06] MEDS: METRONIDAZOLE 500MG TABLET PO SCH (21:36)
[2020-06-07] VITALS (24 sets, daily range): BP systolic 115–173; BP diastolic 47–113
[2020-06-07] MEDS: HYDRALAZINE HCL 25MG TABLET NG SCH ×4 (00:05→17:47)
[2020-06-07] MEDS: IPRATROPIUM/ALBUTEROL 0.5-3(2.5)MG/3ML NEB HHN SCH ×4 (02:29→21:21)
[2020-06-07] MEDS: INSULIN LISPRO 100 UNITS/ML SUBCUT SCH ×4 (06:00→17:48)
[2020-06-07] MEDS: BLOOD SUGAR DIAGNOSTIC STRIP TEST SCH ×4 (06:00→17:44)
[2020-06-07] MEDS: METHYLPREDNISOLONE SOD SUCC 40 MG/ML VIAL IV SCH ×3 (06:08→21:46)
[2020-06-07] MEDS: DEXTROSE 50% WATER 50ML SYRINGE IV PRN (06:08)
[2020-06-07] MEDS: CEFEPIME 1,000 MG in DEXTROSE 5% WATER 50 ML IV SCH ×2 (06:08→15:54)
[2020-06-07 06:47] LABS: HEMATOCRIT. 28.9 % (36.0-48.0); HEMOGLOBIN. 9.7 g/dL (12.0-16.0); MEAN CORPUSCULAR HEMOGLOBIN 29.6 pg (28.0-32.0); MEAN CORPUSCULAR VOLUME 87.8 fL (81.0-99.0); MEAN PLATELET VOLUME 11.1 fl (7.4-10.4); PLATELET 72 x1000/uL (130-400); RED BLOOD CELL COUNT 3.29 mill/uL (4.2-5.4); RED CELL DISTRIBUTION WIDTH 15.9 % (11.6-14.6)
[2020-06-07 07:04] LABS: CHLORIDE 105 mEq/L (98-107)
[2020-06-07 07:14] LABS: CREATINE KINASE 78 IU/L (26-192)
[2020-06-07] MEDS: FUROSEMIDE 40MG/4ML VIAL IVP SCH (08:29)
[2020-06-07] MEDS: CARVEDILOL 6.25 MG TABLET PO SCH ×2 (08:29→21:47)
[2020-06-07] MEDS: DOCUSATE SODIUM SUGAR FREE 100MG/10ML UDC NG PRN (08:29)
[2020-06-07] MEDS: METRONIDAZOLE 500MG TABLET PO SCH ×2 (08:29→21:47)
[2020-06-07] MEDS: INSULIN GLARGINE UD 100 UNITS/ML SYR SUBCUT SCH ×2 (10:00→22:00)
[2020-06-07 10:29] LABS: BG BASE EXCESS 5.6 mmol/L (-2.0-2.0); BG CARBOXYHEMOGLOBIN 0.3 % (0.5-1.5); BG DEOXYHEMOGLOBIN 4.9 % (0.0-5.0); BG FRACTION INSPIRED OXYGEN 45; BG HCO3 ACT 29.8 mmol/L (22.0-26.0); BG METHEMOGLOBIN 0.2 % (0.0-1.5); BG OXYGEN SATURATION 95.1 % (92.0-98.5); BG OXYHEMOGLOBIN 94.6 % (94.0-97.0); BG PCO2 42.2 mmHg (35.0-45.0); BG PH 7.467 (7.350-7.450); BG PO2 76.8 mmHg (75.0-100.0); BG SAMPLE SITE LEFT RADIAL; BG TOTAL HEMOGLOBIN 11.1 g/dL (12.0-18.0); BG TOTAL RESPIRATORY RATE 28 b/min; BG VENT MODE MASK - BIPAP
[2020-06-07] MEDS: SODIUM CHLORIDE 0.45% 1,000 ML IV SCH (14:39)
[2020-06-07 16:28] LABS: PLATELET ESTIMATE DECREASED
[2020-06-07 16:46] LABS: HEMATOCRIT. 30.6 % (36.0-48.0); HEMOGLOBIN. 10.3 g/dL (12.0-16.0); MEAN CORPUSCULAR HEMOGLOBIN 29.5 pg (28.0-32.0); MEAN CORPUSCULAR VOLUME 87.7 fL (81.0-99.0); MEAN PLATELET VOLUME 10.2 fl (7.4-10.4); PLATELET 67 x1000/uL (130-400); RED BLOOD CELL COUNT 3.49 mill/uL (4.2-5.4); RED CELL DISTRIBUTION WIDTH 15.9 % (11.6-14.6)
[2020-06-07 17:45] LABS: PLATELET ESTIMATE DECREASED
[2020-06-08] VITALS (27 sets, daily range): BP systolic 70–162; BP diastolic 41–121
[2020-06-08] MEDS: HYDRALAZINE HCL 25MG TABLET NG SCH ×4 (00:10→18:04)
[2020-06-08] MEDS: BLOOD SUGAR DIAGNOSTIC STRIP TEST SCH ×4 (00:10→18:01)
[2020-06-08] MEDS: INSULIN LISPRO 100 UNITS/ML SUBCUT SCH ×4 (00:13→18:04)
[2020-06-08] MEDS: IPRATROPIUM/ALBUTEROL 0.5-3(2.5)MG/3ML NEB HHN SCH ×5 (00:40→20:28)
[2020-06-08] MEDS: CEFEPIME 1,000 MG in DEXTROSE 5% WATER 50 ML IV SCH ×2 (04:29→16:35)
[2020-06-08] MEDS: METHYLPREDNISOLONE SOD SUCC 40 MG/ML VIAL IV SCH ×3 (05:37→20:36)
[2020-06-08] MEDS: SODIUM CHLORIDE 0.45% 1,000 ML IV SCH ×2 (05:37→22:40)
[2020-06-08 06:50] LABS: CHLORIDE 104 mEq/L (98-107)
[2020-06-08] MEDS: CARVEDILOL 6.25 MG TABLET PO SCH ×2 (08:17→20:38)
[2020-06-08] MEDS: METRONIDAZOLE 500MG TABLET PO SCH ×2 (08:17→20:38)
[2020-06-08] MEDS: FUROSEMIDE 40MG/4ML VIAL IVP SCH (08:17)
[2020-06-08] MEDS: INSULIN GLARGINE UD 100 UNITS/ML SYR SUBCUT SCH ×2 (09:22→21:48)
[2020-06-08 09:42] LABS: BG BASE EXCESS 3.5 mmol/L (-2.0-2.0); BG CARBOXYHEMOGLOBIN 0.2 % (0.5-1.5); BG DEOXYHEMOGLOBIN 1.2 % (0.0-5.0); BG FRACTION INSPIRED OXYGEN 60; BG HCO3 ACT 27.4 mmol/L (22.0-26.0); BG METHEMOGLOBIN 0.1 % (0.0-1.5); BG OXYGEN SATURATION 98.8 % (92.0-98.5); BG OXYHEMOGLOBIN 98.5 % (94.0-97.0); BG PCO2 39.1 mmHg (35.0-45.0); BG PH 7.464 (7.350-7.450); BG PO2 278.7 mmHg (75.0-100.0); BG SAMPLE SITE RIGHT RADIAL; BG TOTAL HEMOGLOBIN 10.5 g/dL (12.0-18.0); BG VENT MODE MASK - BIPAP
[2020-06-09] VITALS (28 sets, daily range): BP systolic 134–166; BP diastolic 60–104
[2020-06-09] MEDS: HYDRALAZINE HCL 25MG TABLET NG SCH ×4 (00:05→19:28)
[2020-06-09] MEDS: INSULIN LISPRO 100 UNITS/ML SUBCUT SCH ×4 (00:06→19:29)
[2020-06-09] MEDS: IPRATROPIUM/ALBUTEROL 0.5-3(2.5)MG/3ML NEB HHN SCH ×4 (02:56→20:26)
[2020-06-09] MEDS: CEFEPIME 1,000 MG in DEXTROSE 5% WATER 50 ML IV SCH ×2 (04:27→16:51)
[2020-06-09] MEDS: METHYLPREDNISOLONE SOD SUCC 40 MG/ML VIAL IV SCH ×3 (05:29→21:04)
[2020-06-09] MEDS: BLOOD SUGAR DIAGNOSTIC STRIP TEST SCH ×5 (05:30→23:27)
[2020-06-09 06:14] LABS: CHLORIDE 103 mEq/L (98-107); HEMATOCRIT. 26.9 % (36.0-48.0); HEMOGLOBIN. 9.1 g/dL (12.0-16.0); MEAN CORPUSCULAR HEMOGLOBIN 29.9 pg (28.0-32.0); MEAN CORPUSCULAR VOLUME 88.3 fL (81.0-99.0); MEAN PLATELET VOLUME 11.2 fl (7.4-10.4); PLATELET 56 x1000/uL (130-400); RED BLOOD CELL COUNT 3.05 mill/uL (4.2-5.4); RED CELL DISTRIBUTION WIDTH 16.3 % (11.6-14.6)
[2020-06-09] MEDS: FUROSEMIDE 40MG/4ML VIAL IVP SCH (09:37)
[2020-06-09] MEDS: METRONIDAZOLE 500MG TABLET PO SCH ×2 (09:37→21:04)
[2020-06-09] MEDS: CARVEDILOL 6.25 MG TABLET PO SCH ×2 (09:38→21:05)
[2020-06-09] MEDS: INSULIN GLARGINE UD 100 UNITS/ML SYR SUBCUT SCH ×2 (09:41→21:08)
[2020-06-09 10:18] LABS: NUCLEATED RED BLOOD CELLS 4 /100 WBC
[2020-06-09 10:19] LABS: PLATELET ESTIMATE MARKEDLY DECREASED
[2020-06-09 12:04] LABS: BG BASE EXCESS 3.8 mmol/L (-2.0-2.0); BG CARBOXYHEMOGLOBIN 0.3 % (0.5-1.5); BG DEOXYHEMOGLOBIN 1.7 % (0.0-5.0); BG FRACTION INSPIRED OXYGEN 45; BG HCO3 ACT 28.7 mmol/L (22.0-26.0); BG METHEMOGLOBIN 0.2 % (0.0-1.5); BG OXYGEN SATURATION 98.3 % (92.0-98.5); BG OXYHEMOGLOBIN 97.8 % (94.0-97.0); BG PH 7.423 (7.350-7.450); BG PO2 166.7 mmHg (75.0-100.0); BG SAMPLE SITE RIGHT RADIAL; BG TOTAL HEMOGLOBIN 9.5 g/dL (12.0-18.0); BG VENT MODE MASK - BIPAP
[2020-06-09] MEDS: SODIUM CHLORIDE 0.45% 1,000 ML IV SCH (16:51)
[2020-06-09] MEDS ORDERED: FUROSEMIDE 40MG/4ML VIAL IVP NR (22:38)
[2020-06-09] MEDS ORDERED: ALBUMIN HUMAN 25GM/100ML (25%) IV NR ×2 (22:38)
[2020-06-10] VITALS (26 sets, daily range): BP systolic 101–165; BP diastolic 57–102
[2020-06-10] MEDS: HYDRALAZINE HCL 25MG TABLET NG SCH ×4 (00:22→18:46)
[2020-06-10] MEDS: INSULIN LISPRO 100 UNITS/ML SUBCUT SCH ×4 (00:22→18:00)
[2020-06-10] MEDS: IPRATROPIUM/ALBUTEROL 0.5-3(2.5)MG/3ML NEB HHN SCH ×4 (01:24→21:15)
[2020-06-10] MEDS: CEFEPIME 1,000 MG in DEXTROSE 5% WATER 50 ML IV SCH ×2 (03:54→16:32)
[2020-06-10] MEDS: METHYLPREDNISOLONE SOD SUCC 40 MG/ML VIAL IV SCH ×2 (05:43→21:29)
[2020-06-10] MEDS: BLOOD SUGAR DIAGNOSTIC STRIP TEST SCH ×3 (05:44→18:00)
[2020-06-10] MEDS: HYDRALAZINE 20MG/ML VIAL IV PRN (06:46)
[2020-06-10 06:50] LABS: CHLORIDE 102 mEq/L (98-107)
[2020-06-10 06:52] LABS: HEMATOCRIT. 29.1 % (36.0-48.0); HEMOGLOBIN. 9.7 g/dL (12.0-16.0); MEAN CORPUSCULAR HEMOGLOBIN 29.6 pg (28.0-32.0); MEAN CORPUSCULAR VOLUME 88.8 fL (81.0-99.0); MEAN PLATELET VOLUME 11.4 fl (7.4-10.4); PLATELET 62 x1000/uL (130-400); RED BLOOD CELL COUNT 3.27 mill/uL (4.2-5.4); RED CELL DISTRIBUTION WIDTH 16.1 % (11.6-14.6)
[2020-06-10] MEDS: FUROSEMIDE 40MG/4ML VIAL IVP SCH (09:57)
[2020-06-10] MEDS: CARVEDILOL 6.25 MG TABLET PO SCH ×2 (09:57→21:29)
[2020-06-10] MEDS: DOCUSATE SODIUM SUGAR FREE 100MG/10ML UDC NG PRN (09:57)
[2020-06-10] MEDS: METRONIDAZOLE 500MG TABLET PO SCH ×2 (09:57→21:28)
[2020-06-10] MEDS: INSULIN GLARGINE UD 100 UNITS/ML SYR SUBCUT SCH ×2 (10:00→21:29)
[2020-06-10] MEDS: SODIUM CHLORIDE 0.45% 1,000 ML IV SCH (10:07)
[2020-06-10 11:34] LABS: NUCLEATED RED BLOOD CELLS 1 /100 WBC; PLATELET ESTIMATE DECREASED
[2020-06-10 16:53] LABS: BG CARBOXYHEMOGLOBIN 0.3 % (0.5-1.5); BG DEOXYHEMOGLOBIN 5.5 % (0.0-5.0); BG FRACTION INSPIRED OXYGEN 35; BG HCO3 ACT 31.9 mmol/L (22.0-26.0); BG METHEMOGLOBIN 0.1 % (0.0-1.5); BG OXYGEN SATURATION 94.5 % (92.0-98.5); BG OXYHEMOGLOBIN 94.1 % (94.0-97.0); BG PCO2 41.9 mmHg (35.0-45.0); BG PH 7.499 (7.350-7.450); BG PO2 66.7 mmHg (75.0-100.0); BG SAMPLE SITE RIGHT RADIAL; BG TOTAL HEMOGLOBIN 9.5 g/dL (12.0-18.0); BG VENT MODE MASK - BIPAP
[2020-06-10] MEDS: MORPHINE SULFATE 2 MG/ML CPJ (NOT FOR IM USE) IV PRN (18:46)
[2020-06-10] MEDS ORDERED: ALBUMIN HUMAN 25GM/100ML (25%) IV NR ×2 (20:00→23:08)
[2020-06-10] MEDS ORDERED: FUROSEMIDE 40MG/4ML VIAL IVP NR (20:00)
[2020-06-11] VITALS (24 sets, daily range): BP systolic 108–157; BP diastolic 56–98
[2020-06-11] MEDS: BLOOD SUGAR DIAGNOSTIC STRIP TEST SCH ×5 (00:01→23:45)
[2020-06-11] MEDS: HYDRALAZINE HCL 25MG TABLET NG SCH ×5 (00:30→23:51)
[2020-06-11] MEDS ORDERED: FUROSEMIDE 40MG/4ML VIAL IVP NR (00:30)
[2020-06-11] MEDS: IPRATROPIUM/ALBUTEROL 0.5-3(2.5)MG/3ML NEB HHN SCH ×4 (02:13→20:10)
[2020-06-11] MEDS: CEFEPIME 1,000 MG in DEXTROSE 5% WATER 50 ML IV SCH ×2 (03:54→16:04)
[2020-06-11] MEDS: INSULIN LISPRO 100 UNITS/ML SUBCUT SCH ×5 (05:59→23:52)
[2020-06-11 06:29] LABS: HEMATOCRIT. 24.6 % (36.0-48.0); HEMOGLOBIN. 8.4 g/dL (12.0-16.0); MEAN CORPUSCULAR HEMOGLOBIN 29.9 pg (28.0-32.0); MEAN CORPUSCULAR VOLUME 87.7 fL (81.0-99.0); MEAN PLATELET VOLUME 10.8 fl (7.4-10.4); RED CELL DISTRIBUTION WIDTH 16.1 % (11.6-14.6)
[2020-06-11 06:34] LABS: CHLORIDE 103 mEq/L (98-107)
[2020-06-11] MEDS: MORPHINE SULFATE 2 MG/ML CPJ (NOT FOR IM USE) IV PRN ×3 (07:20→19:59)
[2020-06-11] MEDS: SODIUM CHLORIDE 0.45% 1,000 ML IV SCH ×2 (07:28→21:55)
[2020-06-11] MEDS: METHYLPREDNISOLONE SOD SUCC 40 MG/ML VIAL IV SCH ×2 (08:14→20:00)
[2020-06-11] MEDS: FUROSEMIDE 40MG/4ML VIAL IVP SCH (08:14)
[2020-06-11] MEDS: LACTULOSE 20G/30ML UDC PO SCH (08:17)
[2020-06-11] MEDS: CARVEDILOL 6.25 MG TABLET PO SCH ×2 (08:17→20:00)
[2020-06-11] MEDS: METRONIDAZOLE 500MG TABLET PO SCH ×2 (08:17→20:02)
[2020-06-11 08:24] LABS: BG BASE EXCESS 6.7 mmol/L (-2.0-2.0); BG CARBOXYHEMOGLOBIN 0.1 % (0.5-1.5); BG DEOXYHEMOGLOBIN 11.9 % (0.0-5.0); BG FRACTION INSPIRED OXYGEN 100; BG HCO3 ACT 31.9 mmol/L (22.0-26.0); BG METHEMOGLOBIN 0.3 % (0.0-1.5); BG OXYGEN SATURATION 88.1 % (92.0-98.5); BG OXYHEMOGLOBIN 87.7 % (94.0-97.0); BG PCO2 49.5 mmHg (35.0-45.0); BG PH 7.427 (7.350-7.450); BG PO2 54.9 mmHg (75.0-100.0); BG SAMPLE SITE RIGHT RADIAL; BG TOTAL HEMOGLOBIN 8.8 g/dL (12.0-18.0); BG VENT MODE MASK - BIPAP
[2020-06-11] MEDS: INSULIN GLARGINE UD 100 UNITS/ML SYR SUBCUT SCH ×2 (09:42→21:54)
[2020-06-11 11:36] LABS: NUCLEATED RED BLOOD CELLS 2 /100 WBC
[2020-06-11 11:37] LABS: PLATELET ESTIMATE MARKEDLY DECREASED
[2020-06-11 11:38] LABS: PLATELET 43 x1000/uL (130-400)
[2020-06-11] MEDS: VANCOMYCIN 1250MG in DEXTROSE 5% WATER 250ML IV SCH (17:41)
[2020-06-12] VITALS (89 sets, daily range): BP systolic 56–206; BP diastolic 29–157
[2020-06-12] MEDS: IPRATROPIUM/ALBUTEROL 0.5-3(2.5)MG/3ML NEB HHN SCH ×2 (01:32→20:07)
[2020-06-12] MEDS: MORPHINE SULFATE 2 MG/ML CPJ (NOT FOR IM USE) IV PRN (02:24)
[2020-06-12] MEDS: BLOOD SUGAR DIAGNOSTIC STRIP TEST SCH ×3 (05:39→18:00)
[2020-06-12] MEDS: HYDRALAZINE HCL 50MG TABLET NG SCH ×3 (05:39→18:00)
[2020-06-12] MEDS: INSULIN LISPRO 100 UNITS/ML SUBCUT SCH ×3 (05:39→18:00)
[2020-06-12 06:36] LABS: CHLORIDE 103 mEq/L (98-107)
[2020-06-12 06:41] LABS: HEMATOCRIT. 23.4 % (36.0-48.0); MEAN CORPUSCULAR HEMOGLOBIN 30.3 pg (28.0-32.0); MEAN CORPUSCULAR VOLUME 88.1 fL (81.0-99.0); MEAN PLATELET VOLUME 11.2 fl (7.4-10.4); RED BLOOD CELL COUNT 2.66 mill/uL (4.2-5.4); RED CELL DISTRIBUTION WIDTH 16.1 % (11.6-14.6)
[2020-06-12 07:36] LABS: PLATELET 32 x1000/uL (130-400)
[2020-06-12] MEDS: CARVEDILOL 6.25 MG TABLET PO SCH ×2 (09:00→21:00)
[2020-06-12] MEDS: METHYLPREDNISOLONE SOD SUCC 40 MG/ML VIAL IV SCH ×2 (09:16→21:56)
[2020-06-12] MEDS: FUROSEMIDE 40MG/4ML VIAL IVP SCH (09:16)
[2020-06-12] MEDS: METRONIDAZOLE 500MG TABLET PO SCH ×2 (09:16→21:58)
[2020-06-12] MEDS: INSULIN GLARGINE UD 100 UNITS/ML SYR SUBCUT SCH ×2 (09:22→21:59)
[2020-06-12 10:50] LABS: NUCLEATED RED BLOOD CELLS 1 /100 WBC; PLATELET ESTIMATE MARKEDLY DECREASED
[2020-06-12] MEDS ORDERED: SODIUM BICARBONATE 8.4% 1 MEQ/ML 50ML SYR IV ONE (13:45)
[2020-06-12] MEDS ORDERED: EPINEPHRINE 0.1MG/ML (1:10,000) 10ML SYR ONE (13:45)
[2020-06-12] MEDS ORDERED: PROPOFOL 10MG/ML 100ML 100 ML IV PRN (14:15)
[2020-06-12 14:57] LABS: BG BASE EXCESS 5.4 mmol/L (-2.0-2.0); BG CARBOXYHEMOGLOBIN 0.3 % (0.5-1.5); BG DEOXYHEMOGLOBIN 2.1 % (0.0-5.0); BG FRACTION INSPIRED OXYGEN 100; BG HCO3 ACT 32.4 mmol/L (22.0-26.0); BG METHEMOGLOBIN 0.2 % (0.0-1.5); BG OXYGEN SATURATION 97.9 % (92.0-98.5); BG OXYHEMOGLOBIN 97.4 % (94.0-97.0); BG PCO2 62.1 mmHg (35.0-45.0); BG PH 7.335 (7.350-7.450); BG PO2 136.8 mmHg (75.0-100.0); BG SAMPLE SITE LEFT RADIAL; BG TOTAL HEMOGLOBIN 9.5 g/dL (12.0-18.0); BG TOTAL RESPIRATORY RATE 16 b/min; BG VENT MODE VENT - AC
[2020-06-12] MEDS: NOREPINEPHRINE 8 MG in DEXT 5% WATER 242 ML IV PRN ×2 (15:28→15:33)
[2020-06-12] MEDS: PHENYLEPHRINE 100 MG in DEXT 5% WATER 240 ML IV PRN (15:30)
[2020-06-12] MEDS ORDERED: VASOPRESSIN 20 UNIT in SODIUM CHLORIDE 0.9% 99 ML IV PRN (15:30)
[2020-06-12] MEDS: FENTANYL CITRATE/PF 2,500 MCG in SODIUM CHLORIDE 0.9% 200 ML IV PRN (15:49)
[2020-06-12 17:23] LABS: CHLORIDE 102 mEq/L (98-107)
[2020-06-12 17:24] LABS: HEMATOCRIT. 28.9 % (36.0-48.0); HEMOGLOBIN. 9.4 g/dL (12.0-16.0); MEAN CORPUSCULAR HEMOGLOBIN 29.5 pg (28.0-32.0); MEAN CORPUSCULAR VOLUME 90.7 fL (81.0-99.0); MEAN PLATELET VOLUME 11.8 fl (7.4-10.4); RED BLOOD CELL COUNT 3.18 mill/uL (4.2-5.4); RED CELL DISTRIBUTION WIDTH 16.4 % (11.6-14.6)
[2020-06-12 17:31] LABS: CREATINE KINASE 92 IU/L (26-192); PLATELET 29 x1000/uL (130-400)
[2020-06-12 17:33] LABS: CREATINE KINASE MB FRACTION 11.4 ng/mL (0.5-3.6)
[2020-06-12] MEDS: VANCOMYCIN 1250MG in DEXTROSE 5% WATER 250ML IV SCH (17:36)
[2020-06-12 17:53] LABS: NUCLEATED RED BLOOD CELLS 2 /100 WBC; PLATELET ESTIMATE MARKEDLY DECREASED
[2020-06-12 22:07] LABS: BG BASE EXCESS 3.8 mmol/L (-2.0-2.0); BG CARBOXYHEMOGLOBIN 0.3 % (0.5-1.5); BG DEOXYHEMOGLOBIN 2.8 % (0.0-5.0); BG FRACTION INSPIRED OXYGEN 85; BG HCO3 ACT 28.8 mmol/L (22.0-26.0); BG METHEMOGLOBIN 0.1 % (0.0-1.5); BG OXYGEN SATURATION 97.2 % (92.0-98.5); BG OXYHEMOGLOBIN 96.8 % (94.0-97.0); BG PCO2 45.2 mmHg (35.0-45.0); BG PH 7.422 (7.350-7.450); BG PO2 103.5 mmHg (75.0-100.0); BG SAMPLE SITE RIGHT RADIAL; BG TOTAL HEMOGLOBIN 10.3 g/dL (12.0-18.0); BG TOTAL RESPIRATORY RATE 24 b/min; BG VENT MODE VENT - AC
[2020-06-12] MEDS: SODIUM CHLORIDE 0.45% 1,000 ML IV SCH (23:28)
[2020-06-12] MEDS ORDERED: ALBUMIN HUMAN 25GM/100ML (25%) IV NR (23:30)
[2020-06-13] VITALS (118 sets, daily range): BP systolic 75–183; BP diastolic 39–137
[2020-06-13 00:41] LABS: HEMATOCRIT 24.4 % (36.0-48.0); HEMOGLOBIN 8.3 g/dL (12.0-16.0)
[2020-06-13] MEDS: BLOOD SUGAR DIAGNOSTIC STRIP TEST SCH ×5 (00:46→23:45)
[2020-06-13] MEDS: DEXTROSE 50% WATER 50ML SYRINGE IV PRN ×4 (00:48→22:48)
[2020-06-13] MEDS ORDERED: FUROSEMIDE 40MG/4ML VIAL IVP NR ×2 (00:50→23:50)
[2020-06-13 01:55] LABS: PROTHROMBIN TIME 10.7 sec (9.6-11.0)
[2020-06-13] MEDS: IPRATROPIUM/ALBUTEROL 0.5-3(2.5)MG/3ML NEB HHN SCH ×4 (01:58→21:17)
[2020-06-13] MEDS: PHENYLEPHRINE 100 MG in DEXT 5% WATER 240 ML IV PRN (04:34)
[2020-06-13] MEDS: NOREPINEPHRINE 8 MG in DEXT 5% WATER 242 ML IV PRN (05:17)
[2020-06-13] MEDS: HYDRALAZINE HCL 50MG TABLET NG SCH ×2 (05:18)
[2020-06-13] MEDS: INSULIN LISPRO 100 UNITS/ML SUBCUT SCH ×5 (05:27→23:46)
[2020-06-13 06:25] LABS: MEAN CORPUSCULAR HEMOGLOBIN 29.4 pg (28.0-32.0); MEAN PLATELET VOLUME 9.5 fl (7.4-10.4); PLATELET 72 x1000/uL (130-400); RED BLOOD CELL COUNT 2.37 mill/uL (4.2-5.4); RED CELL DISTRIBUTION WIDTH 16.2 % (11.6-14.6)
[2020-06-13 06:33] LABS: CHLORIDE 101 mEq/L (98-107)
[2020-06-13 06:41] LABS: CREATINE KINASE 49 IU/L (26-192)
[2020-06-13 06:43] LABS: HEMATOCRIT. 20.9 % (36.0-48.0)
[2020-06-13 06:44] LABS: CREATINE KINASE MB FRACTION 7.6 ng/mL (0.5-3.6)
[2020-06-13] MEDS: CARVEDILOL 6.25 MG TABLET PO SCH (09:00)
[2020-06-13] MEDS: LACTULOSE 20G/30ML UDC PO SCH (09:58)
[2020-06-13] MEDS: METHYLPREDNISOLONE SOD SUCC 40 MG/ML VIAL IV SCH ×2 (09:58→22:47)
[2020-06-13] MEDS: FUROSEMIDE 40MG/4ML VIAL IVP SCH (09:58)
[2020-06-13] MEDS: METRONIDAZOLE 500MG TABLET PO SCH (09:59)
[2020-06-13] MEDS: INSULIN GLARGINE UD 100 UNITS/ML SYR SUBCUT SCH ×2 (09:59→22:00)
[2020-06-13 10:22] LABS: BG BASE EXCESS 7.6 mmol/L (-2.0-2.0); BG CARBOXYHEMOGLOBIN 0.3 % (0.5-1.5); BG DEOXYHEMOGLOBIN 1.2 % (0.0-5.0); BG FRACTION INSPIRED OXYGEN 85; BG HCO3 ACT 32.3 mmol/L (22.0-26.0); BG METHEMOGLOBIN 0.5 % (0.0-1.5); BG OXYGEN SATURATION 98.8 % (92.0-98.5); BG PCO2 46.5 mmHg (35.0-45.0); BG PH 7.459 (7.350-7.450); BG PO2 229.3 mmHg (75.0-100.0); BG SAMPLE SITE LEFT RADIAL; BG TOTAL HEMOGLOBIN 7.5 g/dL (12.0-18.0); BG TOTAL RESPIRATORY RATE 18 b/min; BG VENT MODE VENT - AC
[2020-06-13 10:47] LABS: NUCLEATED RED BLOOD CELLS 3 /100 WBC; PLATELET ESTIMATE DECREASED
[2020-06-13] MEDS: CEFEPIME 1,000 MG in DEXTROSE 5% WATER 50 ML IV SCH (17:19)
[2020-06-13] MEDS: VANCOMYCIN 1250MG in DEXTROSE 5% WATER 250ML IV SCH (18:12)
[2020-06-13 18:44] LABS: CREATINE KINASE MB FRACTION 8.4 ng/mL (0.5-3.6)
[2020-06-13 21:21] LABS: HEMATOCRIT 29.3 % (36.0-48.0); HEMOGLOBIN 10.1 g/dL (12.0-16.0)
[2020-06-13] MEDS ORDERED: ALBUMIN HUMAN 25GM/100ML (25%) IV NR (22:30)
[2020-06-13] MEDS: SODIUM CHLORIDE 0.45% 1,000 ML IV SCH (23:52)
[2020-06-14] VITALS (100 sets, daily range): BP systolic 80–203; BP diastolic 27–155
[2020-06-14 00:35] LABS: CREATINE KINASE MB FRACTION 6.2 ng/mL (0.5-3.6)
[2020-06-14] MEDS: IPRATROPIUM/ALBUTEROL 0.5-3(2.5)MG/3ML NEB HHN SCH ×2 (02:20→08:30)
[2020-06-14] MEDS: CEFEPIME 1,000 MG in DEXTROSE 5% WATER 50 ML IV SCH ×2 (03:48→17:03)
[2020-06-14 05:37] LABS: HEMATOCRIT. 27.6 % (36.0-48.0); HEMOGLOBIN. 9.3 g/dL (12.0-16.0); MEAN CORPUSCULAR HEMOGLOBIN 29.1 pg (28.0-32.0); MEAN CORPUSCULAR VOLUME 86.2 fL (81.0-99.0); MEAN PLATELET VOLUME 9.2 fl (7.4-10.4); RED CELL DISTRIBUTION WIDTH 15.7 % (11.6-14.6)
[2020-06-14 05:46] LABS: PLATELET 42 x1000/uL (130-400)
[2020-06-14] MEDS: INSULIN LISPRO 100 UNITS/ML SUBCUT SCH ×3 (06:00→18:00)
[2020-06-14] MEDS: BLOOD SUGAR DIAGNOSTIC STRIP TEST SCH ×3 (06:03→18:25)
[2020-06-14] MEDS: DEXT 5%/0.45% NACL 1000ML 1,000 ML IV SCH (07:31)
[2020-06-14] MEDS: FUROSEMIDE 40MG/4ML VIAL IVP SCH (08:55)
[2020-06-14] MEDS: METHYLPREDNISOLONE SOD SUCC 40 MG/ML VIAL IV SCH ×2 (08:55→21:23)
[2020-06-14] MEDS: FENTANYL CITRATE/PF 2,500 MCG in SODIUM CHLORIDE 0.9% 200 ML IV PRN (08:56)
[2020-06-14] MEDS: INSULIN GLARGINE UD 100 UNITS/ML SYR SUBCUT SCH ×2 (10:09→21:41)
[2020-06-14 15:14] LABS: BG BASE EXCESS 8.2 mmol/L (-2.0-2.0); BG CARBOXYHEMOGLOBIN 0.3 % (0.5-1.5); BG DEOXYHEMOGLOBIN 4.5 % (0.0-5.0); BG HCO3 ACT 32.3 mmol/L (22.0-26.0); BG METHEMOGLOBIN 0.2 % (0.0-1.5); BG OXYGEN SATURATION 95.5 % (92.0-98.5); BG PH 7.493 (7.350-7.450); BG PO2 75.1 mmHg (75.0-100.0); BG SAMPLE SITE LEFT RADIAL; BG TOTAL HEMOGLOBIN 10.6 g/dL (12.0-18.0); BG VENT MODE VENT - AC
[2020-06-14 22:35] LABS: PLATELET ESTIMATE MARKEDLY DECREASED
[2020-06-15] VITALS (88 sets, daily range): BP systolic 112–198; BP diastolic 63–159
[2020-06-15] MEDS: BLOOD SUGAR DIAGNOSTIC STRIP TEST SCH ×4 (00:12→17:54)
[2020-06-15] MEDS: INSULIN LISPRO 100 UNITS/ML SUBCUT SCH ×4 (00:13→19:05)
[2020-06-15] MEDS: CEFEPIME 1,000 MG in DEXTROSE 5% WATER 50 ML IV SCH ×2 (05:06→16:58)
[2020-06-15] MEDS: DEXT 5%/0.45% NACL 1000ML 1,000 ML IV SCH ×2 (05:08→18:01)
[2020-06-15 06:06] LABS: HEMATOCRIT. 30.4 % (36.0-48.0); HEMOGLOBIN. 10.3 g/dL (12.0-16.0); MEAN CORPUSCULAR HEMOGLOBIN 29.4 pg (28.0-32.0); MEAN CORPUSCULAR VOLUME 86.6 fL (81.0-99.0); MEAN PLATELET VOLUME 10.5 fl (7.4-10.4); RED BLOOD CELL COUNT 3.51 mill/uL (4.2-5.4); RED CELL DISTRIBUTION WIDTH 15.9 % (11.6-14.6)
[2020-06-15] MEDS: FENTANYL CITRATE/PF 2,500 MCG in SODIUM CHLORIDE 0.9% 200 ML IV PRN (06:21)
[2020-06-15 06:35] LABS: PLATELET 36 x1000/uL (130-400)
[2020-06-15 08:14] LABS: BG BASE EXCESS 6.7 mmol/L (-2.0-2.0); BG CARBOXYHEMOGLOBIN 0.3 % (0.5-1.5); BG DEOXYHEMOGLOBIN 2.5 % (0.0-5.0); BG HCO3 ACT 31.3 mmol/L (22.0-26.0); BG METHEMOGLOBIN 0.3 % (0.0-1.5); BG OXYGEN SATURATION 97.5 % (92.0-98.5); BG OXYHEMOGLOBIN 96.9 % (94.0-97.0); BG PCO2 45.5 mmHg (35.0-45.0); BG PH 7.456 (7.350-7.450); BG PO2 103.8 mmHg (75.0-100.0); BG SAMPLE SITE RIGHT RADIAL; BG TOTAL HEMOGLOBIN 10.3 g/dL (12.0-18.0); BG VENT MODE VENT - AC
[2020-06-15] MEDS: FUROSEMIDE 40MG/4ML VIAL IVP SCH (09:12)
[2020-06-15] MEDS: METHYLPREDNISOLONE SOD SUCC 40 MG/ML VIAL IV SCH ×2 (09:12→20:19)
[2020-06-15] MEDS: LACTULOSE 20G/30ML UDC PO SCH (09:14)
[2020-06-15] MEDS: INSULIN GLARGINE UD 100 UNITS/ML SYR SUBCUT SCH (09:16)
[2020-06-15] MEDS ORDERED: ALBUMIN HUMAN 25GM/100ML (25%) IV SCH (11:30)
[2020-06-15 11:33] LABS: NUCLEATED RED BLOOD CELLS 2 /100 WBC; PLATELET ESTIMATE MARKEDLY DECREASED
[2020-06-15 17:19] LABS: HEMATOCRIT. 29.4 % (36.0-48.0); HEMOGLOBIN. 9.8 g/dL (12.0-16.0); MEAN CORPUSCULAR HEMOGLOBIN 29.2 pg (28.0-32.0); MEAN CORPUSCULAR VOLUME 87.3 fL (81.0-99.0); MEAN PLATELET VOLUME 11.6 fl (7.4-10.4); RED BLOOD CELL COUNT 3.37 mill/uL (4.2-5.4)
[2020-06-15 17:29] LABS: PLATELET 32 x1000/uL (130-400)
[2020-06-15] MEDS: HYDRALAZINE 20MG/ML VIAL IV PRN (19:05)
[2020-06-15 19:20] LABS: PLATELET ESTIMATE MARKEDLY DECREASED
[2020-06-16] VITALS (101 sets, daily range): BP systolic 110–196; BP diastolic 55–157
[2020-06-16] MEDS: INSULIN GLARGINE UD 100 UNITS/ML SYR SUBCUT SCH ×3 (00:01→21:20)
[2020-06-16] MEDS: INSULIN LISPRO 100 UNITS/ML SUBCUT SCH ×4 (00:02→18:00)
[2020-06-16] MEDS: BLOOD SUGAR DIAGNOSTIC STRIP TEST SCH ×4 (00:02→18:23)
[2020-06-16] MEDS: HYDRALAZINE 20MG/ML VIAL IV PRN ×2 (02:31→21:44)
[2020-06-16] MEDS: CEFEPIME 1,000 MG in DEXTROSE 5% WATER 50 ML IV SCH (04:14)
[2020-06-16 06:30] LABS: CHLORIDE 97 mEq/L (98-107)
[2020-06-16] MEDS ORDERED: ALBUMIN HUMAN 25GM/100ML (25%) IV SCH (08:15)
[2020-06-16 08:57] LABS: BG BASE EXCESS 3.6 mmol/L (-2.0-2.0); BG CARBOXYHEMOGLOBIN 0.3 % (0.5-1.5); BG DEOXYHEMOGLOBIN 2.1 % (0.0-5.0); BG FRACTION INSPIRED OXYGEN 40; BG HCO3 ACT 29.1 mmol/L (22.0-26.0); BG METHEMOGLOBIN 0.3 % (0.0-1.5); BG OXYGEN SATURATION 97.9 % (92.0-98.5); BG OXYHEMOGLOBIN 97.3 % (94.0-97.0); BG PCO2 48.3 mmHg (35.0-45.0); BG PH 7.398 (7.350-7.450); BG PO2 120.5 mmHg (75.0-100.0); BG SAMPLE SITE RIGHT RADIAL; BG TOTAL HEMOGLOBIN 10.5 g/dL (12.0-18.0); BG VENT MODE VENT - AC
[2020-06-16] MEDS: FUROSEMIDE 40MG/4ML VIAL IVP SCH (09:01)
[2020-06-16] MEDS: METHYLPREDNISOLONE SOD SUCC 40 MG/ML VIAL IV SCH ×2 (09:01→21:18)
[2020-06-16] MEDS: FENTANYL CITRATE/PF 2,500 MCG in SODIUM CHLORIDE 0.9% 200 ML IV PRN ×2 (10:36)
[2020-06-16 13:12] LABS: HEMATOCRIT. 27.1 % (36.0-48.0); HEMOGLOBIN. 9.1 g/dL (12.0-16.0); MEAN CORPUSCULAR HEMOGLOBIN 29.5 pg (28.0-32.0); MEAN CORPUSCULAR VOLUME 87.5 fL (81.0-99.0); MEAN PLATELET VOLUME 8.7 fl (7.4-10.4); PLATELET 74 x1000/uL (130-400); RED CELL DISTRIBUTION WIDTH 15.9 % (11.6-14.6)
[2020-06-16 13:51] LABS: PLATELET ESTIMATE DECREASED
[2020-06-17] VITALS (77 sets, daily range): BP systolic 103–190; BP diastolic 52–107
[2020-06-17] MEDS: BLOOD SUGAR DIAGNOSTIC STRIP TEST SCH ×4 (00:02→17:49)
[2020-06-17] MEDS: FENTANYL CITRATE/PF 2,500 MCG in SODIUM CHLORIDE 0.9% 200 ML IV PRN (04:03)
[2020-06-17] MEDS: INSULIN LISPRO 100 UNITS/ML SUBCUT SCH ×4 (05:58→17:48)
[2020-06-17] MEDS: DEXTROSE 50% WATER 50ML SYRINGE IV PRN ×3 (05:58→16:51)
[2020-06-17 06:25] LABS: HEMATOCRIT. 29.4 % (36.0-48.0); HEMOGLOBIN. 9.8 g/dL (12.0-16.0); MEAN CORPUSCULAR HEMOGLOBIN 29.1 pg (28.0-32.0); MEAN CORPUSCULAR VOLUME 87.1 fL (81.0-99.0); MEAN PLATELET VOLUME 9.1 fl (7.4-10.4); PLATELET 61 x1000/uL (130-400); RED BLOOD CELL COUNT 3.38 mill/uL (4.2-5.4); RED CELL DISTRIBUTION WIDTH 15.5 % (11.6-14.6)
[2020-06-17 06:37] LABS: PHOSPHORUS 3.9 mg/dL (2.5-4.9)
[2020-06-17] MEDS: HYDRALAZINE 20MG/ML VIAL IV PRN ×2 (06:45→19:17)
[2020-06-17 09:20] LABS: NUCLEATED RED BLOOD CELLS 2 /100 WBC
[2020-06-17 09:22] LABS: PLATELET ESTIMATE DECREASED
[2020-06-17] MEDS: METHYLPREDNISOLONE SOD SUCC 40 MG/ML VIAL IV SCH ×2 (09:58→21:19)
[2020-06-17] MEDS: INSULIN GLARGINE UD 100 UNITS/ML SYR SUBCUT SCH ×2 (09:59→22:02)
[2020-06-17] MEDS: LACTULOSE 20G/30ML UDC PO SCH (09:59)
[2020-06-17] MEDS ORDERED: FENTANYL CITRATE/PF 50MCG/ML 2ML VIAL ONE (11:42)
[2020-06-17] MEDS ORDERED: ROCURONIUM BROMIDE 10MG/ML VIAL 5ML IV ONE (11:43)
[2020-06-17] MEDS ORDERED: MIDAZOLAM HCL 2 MG/2 ML VIAL ONE (11:47)
[2020-06-17] MEDS ORDERED: EPHEDRINE SULFATE 50MG/ML VIAL ONE (11:53)
[2020-06-18] VITALS (69 sets, daily range): BP systolic 118–187; BP diastolic 60–95
[2020-06-18] MEDS: BLOOD SUGAR DIAGNOSTIC STRIP TEST SCH ×4 (00:18→17:05)
[2020-06-18] MEDS: HYDRALAZINE 20MG/ML VIAL IV PRN ×2 (03:30→17:11)
[2020-06-18] MEDS: FENTANYL CITRATE/PF 2,500 MCG in SODIUM CHLORIDE 0.9% 200 ML IV PRN ×2 (04:36→20:39)
[2020-06-18] MEDS: INSULIN LISPRO 100 UNITS/ML SUBCUT SCH ×4 (05:57→17:12)
[2020-06-18 08:13] LABS: HEMATOCRIT. 28.4 % (36.0-48.0); HEMOGLOBIN. 9.7 g/dL (12.0-16.0); MEAN CORPUSCULAR HEMOGLOBIN 29.8 pg (28.0-32.0); MEAN CORPUSCULAR VOLUME 87.5 fL (81.0-99.0); MEAN PLATELET VOLUME 9.5 fl (7.4-10.4); PLATELET 93 x1000/uL (130-400); RED BLOOD CELL COUNT 3.25 mill/uL (4.2-5.4); RED CELL DISTRIBUTION WIDTH 15.7 % (11.6-14.6)
[2020-06-18] MEDS: METHYLPREDNISOLONE SOD SUCC 40 MG/ML VIAL IV SCH ×2 (09:08→21:21)
[2020-06-18] MEDS: INSULIN GLARGINE UD 100 UNITS/ML SYR SUBCUT SCH ×2 (09:10→21:22)
[2020-06-18 10:14] LABS: NUCLEATED RED BLOOD CELLS 1 /100 WBC; PLATELET ESTIMATE DECREASED
[2020-06-18] MEDS ORDERED: IPRATROPIUM/ALBUTEROL 0.5-3(2.5)MG/3ML NEB HHN PRN (11:15)
[2020-06-18 11:37] LABS: BG BASE EXCESS 4.3 mmol/L (-2.0-2.0); BG CARBOXYHEMOGLOBIN 0.3 % (0.5-1.5); BG DEOXYHEMOGLOBIN 4.2 % (0.0-5.0); BG FRACTION INSPIRED OXYGEN 35; BG HCO3 ACT 28.7 mmol/L (22.0-26.0); BG METHEMOGLOBIN 0.1 % (0.0-1.5); BG OXYGEN SATURATION 95.8 % (92.0-98.5); BG OXYHEMOGLOBIN 95.4 % (94.0-97.0); BG PCO2 42.1 mmHg (35.0-45.0); BG PH 7.451 (7.350-7.450); BG PO2 83.4 mmHg (75.0-100.0); BG SAMPLE SITE LEFT RADIAL; BG TOTAL HEMOGLOBIN 10.1 g/dL (12.0-18.0); BG VENT MODE VENT - AC
[2020-06-18] MEDS: IPRATROPIUM/ALBUTEROL 0.5-3(2.5)MG/3ML NEB HHN SCH ×3 (12:13→20:50)
[2020-06-18] MEDS: FUROSEMIDE 40MG/4ML VIAL IVP SCH (17:11)
[2020-06-19] VITALS (64 sets, daily range): BP systolic 85–207; BP diastolic 45–126
[2020-06-19] MEDS: BLOOD SUGAR DIAGNOSTIC STRIP TEST SCH ×5 (00:19→23:23)
[2020-06-19] MEDS: INSULIN LISPRO 100 UNITS/ML SUBCUT SCH ×4 (00:23→18:07)
[2020-06-19] MEDS: IPRATROPIUM/ALBUTEROL 0.5-3(2.5)MG/3ML NEB HHN SCH ×6 (00:43→20:30)
[2020-06-19] MEDS: HYDRALAZINE 20MG/ML VIAL IV PRN ×3 (04:37→21:01)
[2020-06-19 06:00] LABS: CHLORIDE 97 mEq/L (98-107); HEMATOCRIT. 29.6 % (36.0-48.0); HEMOGLOBIN. 10.1 g/dL (12.0-16.0); MEAN CORPUSCULAR HEMOGLOBIN 29.4 pg (28.0-32.0); MEAN CORPUSCULAR VOLUME 86.4 fL (81.0-99.0); MEAN PLATELET VOLUME 10.5 fl (7.4-10.4); PLATELET 71 x1000/uL (130-400); RED BLOOD CELL COUNT 3.43 mill/uL (4.2-5.4); RED CELL DISTRIBUTION WIDTH 15.4 % (11.6-14.6)
[2020-06-19 06:07] LABS: PHOSPHORUS 4.3 mg/dL (2.5-4.9)
[2020-06-19] MEDS: METHYLPREDNISOLONE SOD SUCC 40 MG/ML VIAL IV SCH ×2 (08:57→21:07)
[2020-06-19] MEDS: LACTULOSE 20G/30ML UDC PO SCH (08:57)
[2020-06-19] MEDS: FUROSEMIDE 40MG/4ML VIAL IVP SCH (08:57)
[2020-06-19] MEDS: LORAZEPAM 2MG/ML CPJ IV PRN (08:57)
[2020-06-19] MEDS: INSULIN GLARGINE UD 100 UNITS/ML SYR SUBCUT SCH ×2 (09:00→22:21)
[2020-06-19 09:31] LABS: BG BASE EXCESS 2.6 mmol/L (-2.0-2.0); BG CARBOXYHEMOGLOBIN 0.3 % (0.5-1.5); BG DEOXYHEMOGLOBIN 3.3 % (0.0-5.0); BG FRACTION INSPIRED OXYGEN 35; BG HCO3 ACT 27.3 mmol/L (22.0-26.0); BG METHEMOGLOBIN 0.1 % (0.0-1.5); BG OXYGEN SATURATION 96.7 % (92.0-98.5); BG OXYHEMOGLOBIN 96.3 % (94.0-97.0); BG PCO2 42.6 mmHg (35.0-45.0); BG PH 7.424 (7.350-7.450); BG PO2 95.6 mmHg (75.0-100.0); BG SAMPLE SITE LEFT RADIAL; BG TOTAL HEMOGLOBIN 9.9 g/dL (12.0-18.0); BG VENT MODE VENT - AC
[2020-06-19 12:57] LABS: PLATELET ESTIMATE DECREASED
[2020-06-19 18:46] LABS: PROTHROMBIN TIME 10.6 sec (9.6-11.0)
[2020-06-19] MEDS ORDERED: AMLODIPINE 5MG TABLET PO NR (20:45)
[2020-06-20] VITALS (48 sets, daily range): BP systolic 116–184; BP diastolic 67–97
[2020-06-20] MEDS: IPRATROPIUM/ALBUTEROL 0.5-3(2.5)MG/3ML NEB HHN SCH ×7 (00:24→23:54)
[2020-06-20] MEDS: HYDRALAZINE 20MG/ML VIAL IV PRN ×5 (01:18→17:14)
[2020-06-20] MEDS: INSULIN LISPRO 100 UNITS/ML SUBCUT SCH ×4 (06:00→18:00)
[2020-06-20] MEDS: BLOOD SUGAR DIAGNOSTIC STRIP TEST SCH ×3 (06:10→18:00)
[2020-06-20 06:16] LABS: HEMATOCRIT. 31.1 % (36.0-48.0); HEMOGLOBIN. 10.3 g/dL (12.0-16.0); MEAN CORPUSCULAR HEMOGLOBIN 28.9 pg (28.0-32.0); MEAN CORPUSCULAR VOLUME 87.2 fL (81.0-99.0); MEAN PLATELET VOLUME 10.1 fl (7.4-10.4); RED BLOOD CELL COUNT 3.57 mill/uL (4.2-5.4); RED CELL DISTRIBUTION WIDTH 15.5 % (11.6-14.6)
[2020-06-20 07:08] LABS: PLATELET 46 x1000/uL (130-400)
[2020-06-20] MEDS: FUROSEMIDE 40MG/4ML VIAL IVP SCH (08:30)
[2020-06-20] MEDS: METHYLPREDNISOLONE SOD SUCC 40 MG/ML VIAL IV SCH ×2 (08:30→22:03)
[2020-06-20] MEDS: AMLODIPINE 5MG TABLET PO SCH (08:30)
[2020-06-20] MEDS ORDERED: CALCIUM CHLORIDE 2,000 MG in SODIUM CHLORIDE 0.9% 250 ML IV SCH (10:00)
[2020-06-20] MEDS: INSULIN GLARGINE UD 100 UNITS/ML SYR SUBCUT SCH ×2 (10:00→22:00)
[2020-06-20 13:11] LABS: PLATELET ESTIMATE MARKEDLY DECREASED
[2020-06-20] MEDS: HYDRALAZINE HCL 25MG TABLET PO SCH ×3 (13:21→22:04)
[2020-06-20] MEDS: CALCITRIOL 0.5MCG CAPSULE PO SCH (13:21)
[2020-06-20] MEDS ORDERED: CEFAZOLIN 1000MG PREMIX 50 ML IV SCH (15:00)
[2020-06-20 15:45] LABS: HEMATOCRIT. 30.2 % (36.0-48.0); HEMOGLOBIN. 10.1 g/dL (12.0-16.0); MEAN CORPUSCULAR HEMOGLOBIN 29.1 pg (28.0-32.0); MEAN CORPUSCULAR VOLUME 86.7 fL (81.0-99.0); MEAN PLATELET VOLUME 8.5 fl (7.4-10.4); PLATELET 79 x1000/uL (130-400); RED BLOOD CELL COUNT 3.48 mill/uL (4.2-5.4); RED CELL DISTRIBUTION WIDTH 15.4 % (11.6-14.6)
[2020-06-20] MEDS ORDERED: SODIUM CHLORIDE 0.9% 10ML VIAL ONE (18:00)
[2020-06-20] MEDS ORDERED: LIDOCAINE HCL/PF 1% 10 MG/ML 5ML VIAL ONE (18:07)
[2020-06-20] MEDS ORDERED: FENTANYL CITRATE/PF 50MCG/ML 2ML VIAL ONE (18:08)
[2020-06-20] MEDS ORDERED: FENTANYL CITRATE/PF 50MCG/ML 2ML VIAL IV PRN (18:08)
[2020-06-20] MEDS ORDERED: MIDAZOLAM HCL 5 MG/5 ML VIAL ONE (18:08)
[2020-06-20] MEDS ORDERED: MIDAZOLAM HCL 5 MG/5 ML VIAL IV PRN (18:08)
[2020-06-20 18:32] LABS: PLATELET ESTIMATE DECREASED
[2020-06-21] VITALS (50 sets, daily range): BP systolic 129–196; BP diastolic 66–103
[2020-06-21] MEDS: BLOOD SUGAR DIAGNOSTIC STRIP TEST SCH ×4 (00:54→17:53)
[2020-06-21] MEDS: HYDRALAZINE 20MG/ML VIAL IV PRN ×2 (01:00→06:04)
[2020-06-21] MEDS: IPRATROPIUM/ALBUTEROL 0.5-3(2.5)MG/3ML NEB HHN SCH ×5 (03:08→20:18)
[2020-06-21] MEDS: INSULIN LISPRO 100 UNITS/ML SUBCUT SCH ×4 (06:00→17:52)
[2020-06-21] MEDS: METOCLOPRAMIDE HCL 10MG/2ML VIAL IV SCH ×3 (06:05→17:52)
[2020-06-21] MEDS: SUCRALFATE 1 G/10 ML UDC GT SCH ×3 (06:05→17:52)
[2020-06-21 06:31] LABS: HEMATOCRIT. 31.5 % (36.0-48.0); HEMOGLOBIN. 10.5 g/dL (12.0-16.0); MEAN CORPUSCULAR HEMOGLOBIN 28.9 pg (28.0-32.0); MEAN CORPUSCULAR VOLUME 86.4 fL (81.0-99.0); MEAN PLATELET VOLUME 9.4 fl (7.4-10.4); PLATELET 52 x1000/uL (130-400); RED BLOOD CELL COUNT 3.64 mill/uL (4.2-5.4); RED CELL DISTRIBUTION WIDTH 15.5 % (11.6-14.6)
[2020-06-21] MEDS: HYDRALAZINE HCL 25MG TABLET PO SCH ×3 (06:55→21:04)
[2020-06-21] MEDS: PANTOPRAZOLE SODIUM 40 MG/VIAL IV SCH (09:07)
[2020-06-21] MEDS: AMLODIPINE 5MG TABLET PO SCH (09:08)
[2020-06-21] MEDS: CALCITRIOL 0.5MCG CAPSULE PO SCH (09:08)
[2020-06-21] MEDS: ASCORBIC ACID 500 MG TABLET PO SCH (09:08)
[2020-06-21] MEDS: FUROSEMIDE 40MG/4ML VIAL IVP SCH (09:08)
[2020-06-21] MEDS: METHYLPREDNISOLONE SOD SUCC 40 MG/ML VIAL IV SCH ×2 (09:08→21:04)
[2020-06-21] MEDS: ZINC SULFATE 220 MG ( 50 ) CAPSULE PO SCH (09:09)
[2020-06-21] MEDS: LACTULOSE 20G/30ML UDC PO SCH (09:10)
[2020-06-21] MEDS: INSULIN GLARGINE UD 100 UNITS/ML SYR SUBCUT SCH ×2 (10:42→21:15)
[2020-06-21] MEDS ORDERED: AMLODIPINE 5MG TABLET PO NR (11:00)
[2020-06-21 11:07] LABS: PLATELET ESTIMATE DECREASED
[2020-06-22] VITALS (57 sets, daily range): BP systolic 137–202; BP diastolic 59–102
[2020-06-22] MEDS: IPRATROPIUM/ALBUTEROL 0.5-3(2.5)MG/3ML NEB HHN SCH ×6 (00:13→20:23)
[2020-06-22] MEDS: SUCRALFATE 1 G/10 ML UDC GT SCH ×4 (00:18→17:48)
[2020-06-22] MEDS: HYDRALAZINE 20MG/ML VIAL IV PRN ×2 (00:19→17:33)
[2020-06-22] MEDS: BLOOD SUGAR DIAGNOSTIC STRIP TEST SCH ×4 (00:20→17:39)
[2020-06-22] MEDS: METOCLOPRAMIDE HCL 10MG/2ML VIAL IV SCH ×4 (00:21→17:48)
[2020-06-22 05:47] LABS: HEMATOCRIT. 27.4 % (36.0-48.0); HEMOGLOBIN. 9.3 g/dL (12.0-16.0); MEAN CORPUSCULAR HEMOGLOBIN 29.3 pg (28.0-32.0); MEAN CORPUSCULAR VOLUME 86.3 fL (81.0-99.0); MEAN PLATELET VOLUME 10.2 fl (7.4-10.4); RED BLOOD CELL COUNT 3.17 mill/uL (4.2-5.4); RED CELL DISTRIBUTION WIDTH 15.4 % (11.6-14.6)
[2020-06-22] MEDS: HYDRALAZINE HCL 25MG TABLET PO SCH (06:15)
[2020-06-22 06:19] LABS: PLATELET 44 x1000/uL (130-400)
[2020-06-22 06:26] LABS: PHOSPHORUS 4.3 mg/dL (2.5-4.9)
[2020-06-22] MEDS: INSULIN LISPRO 100 UNITS/ML SUBCUT SCH ×4 (07:08→17:49)
[2020-06-22] MEDS: METHYLPREDNISOLONE SOD SUCC 40 MG/ML VIAL IV SCH ×2 (09:37→20:43)
[2020-06-22] MEDS: PANTOPRAZOLE SODIUM 40 MG/VIAL IV SCH (09:37)
[2020-06-22] MEDS: ZINC SULFATE 220 MG ( 50 ) CAPSULE PO SCH (09:37)
[2020-06-22] MEDS: FUROSEMIDE 40MG/4ML VIAL IVP SCH (09:37)
[2020-06-22] MEDS: CALCITRIOL 0.5MCG CAPSULE PO SCH (09:37)
[2020-06-22] MEDS: ASCORBIC ACID 500 MG TABLET PO SCH (09:37)
[2020-06-22] MEDS: AMLODIPINE 10MG TABLET PO SCH (09:38)
[2020-06-22] MEDS: INSULIN GLARGINE UD 100 UNITS/ML SYR SUBCUT SCH ×2 (09:39→23:09)
[2020-06-22 11:28] LABS: PLATELET ESTIMATE MARKEDLY DECREASED
[2020-06-22 13:38] LABS: BG BASE EXCESS 2.4 mmol/L (-2.0-2.0); BG CARBOXYHEMOGLOBIN 0.3 % (0.5-1.5); BG DEOXYHEMOGLOBIN 3.2 % (0.0-5.0); BG FRACTION INSPIRED OXYGEN 40; BG HCO3 ACT 26.4 mmol/L (22.0-26.0); BG METHEMOGLOBIN 0.4 % (0.0-1.5); BG OXYGEN SATURATION 96.8 % (92.0-98.5); BG OXYHEMOGLOBIN 96.1 % (94.0-97.0); BG PCO2 38.4 mmHg (35.0-45.0); BG PH 7.455 (7.350-7.450); BG PO2 97.1 mmHg (75.0-100.0); BG SAMPLE SITE LEFT RADIAL; BG TOTAL HEMOGLOBIN 9.5 g/dL (12.0-18.0); BG VENT MODE VENT - SIMV
[2020-06-22] MEDS: HYDRALAZINE HCL 50MG TABLET PO SCH ×2 (14:37→23:08)
[2020-06-22 19:50] LABS: HEMATOCRIT 25.9 % (36.0-48.0)
[2020-06-22] MEDS: LORAZEPAM 2MG/ML CPJ IV PRN (19:51)
[2020-06-22 19:58] LABS: PROTHROMBIN TIME 10.8 sec (9.6-11.0)
[2020-06-23] VITALS (47 sets, daily range): BP systolic 104–167; BP diastolic 52–106
[2020-06-23] MEDS: METOCLOPRAMIDE HCL 10MG/2ML VIAL IV SCH (00:10)
[2020-06-23] MEDS: SUCRALFATE 1 G/10 ML UDC GT SCH ×4 (00:10→18:30)
[2020-06-23] MEDS: BLOOD SUGAR DIAGNOSTIC STRIP TEST SCH ×4 (00:11→18:24)
[2020-06-23] MEDS: INSULIN LISPRO 100 UNITS/ML SUBCUT SCH ×4 (00:11→18:29)
[2020-06-23] MEDS: HYDRALAZINE 20MG/ML VIAL IV PRN (00:15)
[2020-06-23] MEDS: IPRATROPIUM/ALBUTEROL 0.5-3(2.5)MG/3ML NEB HHN SCH ×6 (00:30→20:44)
[2020-06-23 05:49] LABS: HEMATOCRIT. 25.9 % (36.0-48.0); HEMOGLOBIN. 8.7 g/dL (12.0-16.0); MEAN CORPUSCULAR HEMOGLOBIN 29.1 pg (28.0-32.0); MEAN CORPUSCULAR VOLUME 86.3 fL (81.0-99.0); PLATELET 76 x1000/uL (130-400); RED CELL DISTRIBUTION WIDTH 15.8 % (11.6-14.6)
[2020-06-23 05:56] LABS: CHLORIDE 99 mEq/L (98-107)
[2020-06-23] MEDS: HYDRALAZINE HCL 50MG TABLET PO SCH ×3 (06:20→21:33)
[2020-06-23 08:16] LABS: PLATELET ESTIMATE DECREASED
[2020-06-23 08:56] LABS: BG BASE EXCESS 3.9 mmol/L (-2.0-2.0); BG CARBOXYHEMOGLOBIN 0.3 % (0.5-1.5); BG DEOXYHEMOGLOBIN 1.5 % (0.0-5.0); BG FRACTION INSPIRED OXYGEN 40; BG HCO3 ACT 28.1 mmol/L (22.0-26.0); BG METHEMOGLOBIN 0.3 % (0.0-1.5); BG OXYGEN SATURATION 98.5 % (92.0-98.5); BG OXYHEMOGLOBIN 97.9 % (94.0-97.0); BG PCO2 40.7 mmHg (35.0-45.0); BG PH 7.457 (7.350-7.450); BG SAMPLE SITE LEFT RADIAL; BG TOTAL HEMOGLOBIN 8.3 g/dL (12.0-18.0); BG VENT MODE VENT - SIMV
[2020-06-23] MEDS: METHYLPREDNISOLONE SOD SUCC 40 MG/ML VIAL IV SCH ×2 (08:57→21:33)
[2020-06-23] MEDS: PANTOPRAZOLE SODIUM 40 MG/VIAL IV SCH (08:57)
[2020-06-23] MEDS: FUROSEMIDE 40MG/4ML VIAL IVP SCH (08:57)
[2020-06-23] MEDS: AMLODIPINE 10MG TABLET PO SCH (08:58)
[2020-06-23] MEDS: ZINC SULFATE 220 MG ( 50 ) CAPSULE PO SCH (08:58)
[2020-06-23] MEDS: LACTULOSE 20G/30ML UDC PO SCH (08:58)
[2020-06-23] MEDS: ASCORBIC ACID 500 MG TABLET PO SCH (08:58)
[2020-06-23] MEDS: CALCITRIOL 0.5MCG CAPSULE PO SCH (08:58)
[2020-06-23] MEDS: INSULIN GLARGINE UD 100 UNITS/ML SYR SUBCUT SCH (10:12)
[2020-06-23 12:00] LABS: BG BASE EXCESS 4.7 mmol/L (-2.0-2.0); BG CARBOXYHEMOGLOBIN 0.3 % (0.5-1.5); BG FRACTION INSPIRED OXYGEN 40; BG HCO3 ACT 29.1 mmol/L (22.0-26.0); BG METHEMOGLOBIN 0.5 % (0.0-1.5); BG OXYGEN SATURATION 91.9 % (92.0-98.5); BG OXYHEMOGLOBIN 91.2 % (94.0-97.0); BG PCO2 42.9 mmHg (35.0-45.0); BG PO2 60.6 mmHg (75.0-100.0); BG SAMPLE SITE LEFT RADIAL; BG TOTAL HEMOGLOBIN 8.2 g/dL (12.0-18.0); BG VENT MODE VENT - SIMV
[2020-06-23] MEDS ORDERED: INSULIN GLARGINE UD 100 UNITS/ML SYR SUBCUT SCH (22:00)
[2020-06-24] VITALS (42 sets, daily range): BP systolic 112–168; BP diastolic 49–82
[2020-06-24] MEDS: SUCRALFATE 1 G/10 ML UDC GT SCH ×5 (00:15→23:38)
[2020-06-24] MEDS: IPRATROPIUM/ALBUTEROL 0.5-3(2.5)MG/3ML NEB HHN SCH ×6 (00:16→20:18)
[2020-06-24] MEDS: INSULIN LISPRO 100 UNITS/ML SUBCUT SCH ×5 (00:16→23:37)
[2020-06-24] MEDS: BLOOD SUGAR DIAGNOSTIC STRIP TEST SCH ×5 (00:16→23:38)
[2020-06-24 06:03] LABS: HEMATOCRIT. 24.2 % (36.0-48.0); HEMOGLOBIN. 8.1 g/dL (12.0-16.0); MEAN CORPUSCULAR HEMOGLOBIN 29.3 pg (28.0-32.0); MEAN CORPUSCULAR VOLUME 87.6 fL (81.0-99.0); MEAN PLATELET VOLUME 10.8 fl (7.4-10.4); PLATELET 65 x1000/uL (130-400); RED BLOOD CELL COUNT 2.76 mill/uL (4.2-5.4); RED CELL DISTRIBUTION WIDTH 15.4 % (11.6-14.6)
[2020-06-24 06:13] LABS: PHOSPHORUS 3.8 mg/dL (2.5-4.9)
[2020-06-24] MEDS: HYDRALAZINE HCL 50MG TABLET PO SCH ×3 (06:23→21:54)
[2020-06-24] MEDS: FUROSEMIDE 40MG/4ML VIAL IVP SCH (08:20)
[2020-06-24] MEDS: PANTOPRAZOLE SODIUM 40 MG/VIAL IV SCH (08:20)
[2020-06-24] MEDS: CALCITRIOL 0.5MCG CAPSULE PO SCH (08:20)
[2020-06-24] MEDS: ZINC SULFATE 220 MG ( 50 ) CAPSULE PO SCH (08:20)
[2020-06-24] MEDS: ASCORBIC ACID 500 MG TABLET PO SCH (08:20)
[2020-06-24] MEDS: AMLODIPINE 10MG TABLET PO SCH (08:20)
[2020-06-24] MEDS: METHYLPREDNISOLONE SOD SUCC 40 MG/ML VIAL IV SCH ×2 (08:21→20:33)
[2020-06-24] MEDS: DOCUSATE SODIUM SUGAR FREE 100MG/10ML UDC NG PRN (08:21)
[2020-06-24 11:52] LABS: BG BASE EXCESS 5.1 mmol/L (-2.0-2.0); BG CARBOXYHEMOGLOBIN 0.3 % (0.5-1.5); BG DEOXYHEMOGLOBIN 1.7 % (0.0-5.0); BG FRACTION INSPIRED OXYGEN 45; BG HCO3 ACT 30.3 mmol/L (22.0-26.0); BG METHEMOGLOBIN 0.5 % (0.0-1.5); BG OXYGEN SATURATION 98.3 % (92.0-98.5); BG OXYHEMOGLOBIN 97.5 % (94.0-97.0); BG PH 7.409 (7.350-7.450); BG PO2 151.5 mmHg (75.0-100.0); BG SAMPLE SITE RIGHT RADIAL; BG TOTAL HEMOGLOBIN 7.6 g/dL (12.0-18.0); BG VENT MODE VENT - SIMV
[2020-06-24] MEDS: MORPHINE SULFATE 2 MG/ML CPJ (NOT FOR IM USE) IV PRN (12:01)
[2020-06-24 14:51] LABS: PLATELET ESTIMATE DECREASED
[2020-06-24] MEDS: INSULIN GLARGINE UD 100 UNITS/ML SYR SUBCUT SCH (21:53)
[2020-06-25] VITALS (40 sets, daily range): BP systolic 128–168; BP diastolic 58–81
[2020-06-25] MEDS: IPRATROPIUM/ALBUTEROL 0.5-3(2.5)MG/3ML NEB HHN SCH ×6 (00:08→20:37)
[2020-06-25] MEDS: MORPHINE SULFATE 2 MG/ML CPJ (NOT FOR IM USE) IV PRN ×2 (03:44→09:08)
[2020-06-25] MEDS: INSULIN LISPRO 100 UNITS/ML SUBCUT SCH ×3 (06:19→17:41)
[2020-06-25] MEDS: SUCRALFATE 1 G/10 ML UDC GT SCH ×3 (06:20→17:34)
[2020-06-25] MEDS: BLOOD SUGAR DIAGNOSTIC STRIP TEST SCH ×3 (06:20→17:34)
[2020-06-25] MEDS: HYDRALAZINE HCL 50MG TABLET PO SCH ×3 (06:20→21:22)
[2020-06-25 06:23] LABS: HEMATOCRIT. 24.9 % (36.0-48.0); HEMOGLOBIN. 8.3 g/dL (12.0-16.0); MEAN CORPUSCULAR VOLUME 87.1 fL (81.0-99.0); MEAN PLATELET VOLUME 11.1 fl (7.4-10.4); PLATELET 66 x1000/uL (130-400); RED BLOOD CELL COUNT 2.85 mill/uL (4.2-5.4); RED CELL DISTRIBUTION WIDTH 15.3 % (11.6-14.6)
[2020-06-25] MEDS: LACTULOSE 20G/30ML UDC PO SCH (08:21)
[2020-06-25] MEDS: CALCITRIOL 0.5MCG CAPSULE PO SCH (08:21)
[2020-06-25] MEDS: ASCORBIC ACID 500 MG TABLET PO SCH (08:21)
[2020-06-25] MEDS: FUROSEMIDE 40MG/4ML VIAL IVP SCH ×2 (08:22→10:44)
[2020-06-25] MEDS: ZINC SULFATE 220 MG ( 50 ) CAPSULE PO SCH (08:22)
[2020-06-25] MEDS: PANTOPRAZOLE SODIUM 40 MG/VIAL IV SCH (08:22)
[2020-06-25] MEDS: AMLODIPINE 10MG TABLET PO SCH (08:22)
[2020-06-25] MEDS: METHYLPREDNISOLONE SOD SUCC 40 MG/ML VIAL IV SCH ×2 (08:22→21:22)
[2020-06-25] MEDS: INSULIN GLARGINE UD 100 UNITS/ML SYR SUBCUT SCH ×2 (09:52→21:23)
[2020-06-25] MEDS ORDERED: POTASSIUM CHLORIDE 20MEQ/PACKET PO NR (10:45)
[2020-06-25 14:14] LABS: PLATELET ESTIMATE DECREASED
[2020-06-25] MEDS: BISACODYL 10MG SUPP PR PRN (15:50)
[2020-06-25] MEDS ORDERED: ALBUMIN HUMAN 25GM/100ML (25%) IV NR (21:45)
[2020-06-26] VITALS (31 sets, daily range): BP systolic 131–177; BP diastolic 60–119
[2020-06-26] MEDS: BLOOD SUGAR DIAGNOSTIC STRIP TEST SCH ×3 (00:07→12:00)
[2020-06-26] MEDS: SUCRALFATE 1 G/10 ML UDC GT SCH ×3 (00:08→12:17)
[2020-06-26] MEDS: INSULIN LISPRO 100 UNITS/ML SUBCUT SCH ×3 (00:08→13:22)
[2020-06-26] MEDS: IPRATROPIUM/ALBUTEROL 0.5-3(2.5)MG/3ML NEB HHN SCH ×4 (00:37→12:09)
[2020-06-26] MEDS: HYDRALAZINE 20MG/ML VIAL IV PRN ×2 (02:11→12:17)
[2020-06-26] MEDS: BISACODYL 10MG SUPP PR PRN (03:30)
[2020-06-26 05:38] LABS: HEMATOCRIT. 21.8 % (36.0-48.0); HEMOGLOBIN. 7.4 g/dL (12.0-16.0); MEAN CORPUSCULAR HEMOGLOBIN 29.8 pg (28.0-32.0); MEAN CORPUSCULAR VOLUME 87.3 fL (81.0-99.0); PLATELET 64 x1000/uL (130-400); RED CELL DISTRIBUTION WIDTH 15.5 % (11.6-14.6)
[2020-06-26] MEDS: HYDRALAZINE HCL 50MG TABLET PO SCH (05:39)
[2020-06-26] MEDS: DOCUSATE SODIUM SUGAR FREE 100MG/10ML UDC NG PRN (05:40)
[2020-06-26 05:44] LABS: PHOSPHORUS 3.2 mg/dL (2.5-4.9)
[2020-06-26 08:29] LABS: BG BASE EXCESS 2.2 mmol/L (-2.0-2.0); BG CARBOXYHEMOGLOBIN 0.3 % (0.5-1.5); BG DEOXYHEMOGLOBIN 3.4 % (0.0-5.0); BG FRACTION INSPIRED OXYGEN 40; BG HCO3 ACT 27.7 mmol/L (22.0-26.0); BG METHEMOGLOBIN 0.5 % (0.0-1.5); BG OXYGEN SATURATION 96.6 % (92.0-98.5); BG OXYHEMOGLOBIN 95.8 % (94.0-97.0); BG PCO2 47.6 mmHg (35.0-45.0); BG PH 7.382 (7.350-7.450); BG PO2 92.4 mmHg (75.0-100.0); BG SAMPLE SITE RIGHT RADIAL; BG TOTAL HEMOGLOBIN 7.9 g/dL (12.0-18.0); BG VENT MODE VENT - SIMV
[2020-06-26] MEDS: ASCORBIC ACID 500 MG TABLET PO SCH (09:19)
[2020-06-26] MEDS: CALCITRIOL 0.5MCG CAPSULE PO SCH (09:19)
[2020-06-26] MEDS: AMLODIPINE 10MG TABLET PO SCH (09:19)
[2020-06-26] MEDS: PANTOPRAZOLE SODIUM 40 MG/VIAL IV SCH (09:19)
[2020-06-26] MEDS: FUROSEMIDE 40MG/4ML VIAL IVP SCH (09:19)
[2020-06-26] MEDS: METHYLPREDNISOLONE SOD SUCC 40 MG/ML VIAL IV SCH (09:19)
[2020-06-26] MEDS: ZINC SULFATE 220 MG ( 50 ) CAPSULE PO SCH (09:19)
[2020-06-26] MEDS: INSULIN GLARGINE UD 100 UNITS/ML SYR SUBCUT SCH (09:22)
[2020-06-26 14:15] LABS: PLATELET ESTIMATE DECREASED
[2020-06-26] MEDS ORDERED: AMLODIPINE 10MG TABLET PO SCH (21:00)
== END 2020-06-26 14:00 | DRG 4 ==
LOC: ER 12:03 → MICUSO 13:48 → EDBEDREQ 13:52 → EDBEDREQTM 13:52 → EDBEDREQ 17:06 → SUPCPDRO 20:22 → 5EST 05-13 11:29 → MICUSO 05-13 12:05 → 5EST 05-13 15:10 → MICUSO 05-13 15:14 → 3WST 05-26 13:41 → CVICU 05-26 21:56
PROVIDERS: ADMIT Internal Medicine Rheumatology; ATTEND Internal Medicine Rheumatology
PROC: 5A1955Z Respiratory Ventilation, Greater than 96 Consecutive Hours (ICD-10-PCS; principal; 2020-05-07)
PROC: 06HY33Z Insertion of Infusion Device into Lower Vein, Percutaneous Approach (ICD-10-PCS; 2020-05-07)
PROC: B54BZZA Ultrasonography of Right Lower Extremity Veins, Guidance (ICD-10-PCS; 2020-05-07)
PROC: 0BH17EZ Insertion of Endotracheal Airway into Trachea, Via Natural or Artificial Opening (ICD-10-PCS; 2020-05-07)
PROC: 5A1D70Z Performance of Urinary Filtration, Intermittent, Less than 6 Hours Per Day (ICD-10-PCS; 2020-05-07)
PROC: 06HY33Z Insertion of Infusion Device into Lower Vein, Percutaneous Approach (ICD-10-PCS; 2020-05-07)
PROC: 5A1D70Z Performance of Urinary Filtration, Intermittent, Less than 6 Hours Per Day (ICD-10-PCS; 2020-05-09)
PROC: 5A1D70Z Performance of Urinary Filtration, Intermittent, Less than 6 Hours Per Day (ICD-10-PCS; 2020-05-11)
PROC: 5A1D70Z Performance of Urinary Filtration, Intermittent, Less than 6 Hours Per Day (ICD-10-PCS; 2020-05-12)
PROC: 5A1D70Z Performance of Urinary Filtration, Intermittent, Less than 6 Hours Per Day (ICD-10-PCS; 2020-05-13)
PROC: 05HY33Z Insertion of Infusion Device into Upper Vein, Percutaneous Approach (ICD-10-PCS; 2020-05-22)
PROC: B54MZZA Ultrasonography of Right Upper Extremity Veins, Guidance (ICD-10-PCS; 2020-05-22)
PROC: 5A09357 Assistance with Respiratory Ventilation, Less than 24 Consecutive Hours, Continuous Positive Airway Pressure (ICD-10-PCS; 2020-05-26)
PROC: 5A09357 Assistance with Respiratory Ventilation, Less than 24 Consecutive Hours, Continuous Positive Airway Pressure (ICD-10-PCS; 2020-05-29)
PROC: 5A09457 Assistance with Respiratory Ventilation, 24-96 Consecutive Hours, Continuous Positive Airway Pressure (ICD-10-PCS; 2020-05-31)
PROC: 5A09357 Assistance with Respiratory Ventilation, Less than 24 Consecutive Hours, Continuous Positive Airway Pressure (ICD-10-PCS; 2020-06-05)
PROC: 5A09457 Assistance with Respiratory Ventilation, 24-96 Consecutive Hours, Continuous Positive Airway Pressure (ICD-10-PCS; 2020-06-05)
PROC: 5A09457 Assistance with Respiratory Ventilation, 24-96 Consecutive Hours, Continuous Positive Airway Pressure (ICD-10-PCS; 2020-06-09)
PROC: 5A1955Z Respiratory Ventilation, Greater than 96 Consecutive Hours (ICD-10-PCS; 2020-06-12)
PROC: 30233R1 Transfusion of Nonautologous Platelets into Peripheral Vein, Percutaneous Approach (ICD-10-PCS; 2020-06-12)
PROC: 0BH17EZ Insertion of Endotracheal Airway into Trachea, Via Natural or Artificial Opening (ICD-10-PCS; 2020-06-12)
PROC: 5A12012 Performance of Cardiac Output, Single, Manual (ICD-10-PCS; 2020-06-12)
PROC: 30233N1 Transfusion of Nonautologous Red Blood Cells into Peripheral Vein, Percutaneous Approach (ICD-10-PCS; 2020-06-13)
PROC: 0B110F4 Bypass Trachea to Cutaneous with Tracheostomy Device, Open Approach (ICD-10-PCS; 2020-06-17)
PROC: 0DB68ZX Excision of Stomach, Via Natural or Artificial Opening Endoscopic, Diagnostic (ICD-10-PCS; 2020-06-20)
PROC: 0DH63UZ Insertion of Feeding Device into Stomach, Percutaneous Approach (ICD-10-PCS; 2020-06-20)
DX: A41.9 Sepsis, unspecified organism (principal); R65.21 Severe sepsis with septic shock; E43 Unspecified severe protein-calorie malnutrition; J96.01 Acute respiratory failure with hypoxia; J96.02 Acute respiratory failure with hypercapnia; G92 Toxic encephalopathy; I46.9 Cardiac arrest, cause unspecified; N17.0 Acute kidney failure with tubular necrosis; I50.33 Acute on chronic diastolic (congestive) heart failure; J15.1 Pneumonia due to Pseudomonas; J69.8 Pneumonitis due to inhalation of other solids and liquids; E87.1 Hypo-osmolality and hyponatremia; E87.4 Mixed disorder of acid-base balance; I44.2 Atrioventricular block, complete; M62.82 Rhabdomyolysis; N39.0 Urinary tract infection, site not specified; J44.0 Chronic obstructive pulmonary disease with (acute) lower respiratory infection; G93.1 Anoxic brain damage, not elsewhere classified; D62 Acute posthemorrhagic anemia; E11.52 Type 2 diabetes mellitus with diabetic peripheral angiopathy with gangrene; E87.0 Hyperosmolality and hypernatremia; I13.0 Hypertensive heart and chronic kidney disease with heart failure and stage 1 through stage 4 chronic kidney disease, or unspecified chronic kidney disease; I24.8 Other forms of acute ischemic heart disease; J98.11 Atelectasis; L03.90 Cellulitis, unspecified; Z99.11 Dependence on respirator [ventilator] status; I50.9 Heart failure, unspecified; D63.8 Anemia in other chronic diseases classified elsewhere; E03.9 Hypothyroidism, unspecified; E11.42 Type 2 diabetes mellitus with diabetic polyneuropathy; E11.65 Type 2 diabetes mellitus with hyperglycemia; E83.51 Hypocalcemia; E87.5 Hyperkalemia; K59.00 Constipation, unspecified; M10.9 Gout, unspecified; B37.9 Candidiasis, unspecified; D69.6 Thrombocytopenia, unspecified; E11.22 Type 2 diabetes mellitus with diabetic chronic kidney disease; E66.9 Obesity, unspecified; E87.6 Hypokalemia; T65.891A Toxic effect of other specified substances, accidental (unintentional), initial encounter; K29.60 Other gastritis without bleeding; L89.159 Pressure ulcer of sacral region, unspecified stage; L89.309 Pressure ulcer of unspecified buttock, unspecified stage; G43.909 Migraine, unspecified, not intractable, without status migrainosus; M19.90 Unspecified osteoarthritis, unspecified site; R74.01 Elevation of levels of liver transaminase levels; N18.9 Chronic kidney disease, unspecified; N89.8 Other specified noninflammatory disorders of vagina; R13.10 Dysphagia, unspecified; Z82.3 Family history of stroke; Z82.49 Family history of ischemic heart disease and other diseases of the circulatory system; Z83.3 Family history of diabetes mellitus; Z87.891 Personal history of nicotine dependence; Z88.2 Allergy status to sulfonamides; Z79.899 Other long term (current) drug therapy; Z79.82 Long term (current) use of aspirin; Y92.009 Unspecified place in unspecified non-institutional (private) residence as the place of occurrence of the external cause; Z79.4 Long term (current) use of insulin; Z82.5 Family history of asthma and other chronic lower respiratory diseases; K26.9 Duodenal ulcer, unspecified as acute or chronic, without hemorrhage or perforation; Z22.322 Carrier or suspected carrier of Methicillin resistant Staphylococcus aureus; R00.1 Bradycardia, unspecified; Z68.31 Body mass index [BMI] 31.0-31.9, adult; H91.90 Unspecified hearing loss, unspecified ear
CPT/HCPCS: 31500; 36415; 36600; 71045; 71250; 74018; 74176; 76700; 76770; 76937; 80048; 80053; 80061; 80202; 81003; 82040; 82270; 82330; 82375; 82550; 82553; 82607; 82728; 82746; 82805; 82962; 83036; 83540; 83550; 83605; 83615; 83735; 83880; 84100; 84134; 84145; 84443; 84478; 84484; 85014; 85018; 85025; 85044; 85049; 85379; 85384; 86022; 86160; 86256; 86850; 86900; 86920; 86945; 87070; 87077; 87186; 87426; 88305; 88313; 92610; 93005; 93306; 93923; 93970; 94002; 94003; 94640; 94660; 97166; 99291; A6261; C1725; C9113; J0330; J0360; J0461; J0690; J0692; J0713; J1265; J1650; J1815; J1940; J2060; J2185; J2250; J2270; J2370; J2543; J2704; J2765; J2920; J3010; J3370; J3490; J7030; J7040; J7050; J7060; J7070; P9016; P9034; P9047; U0003; A4315